=== PATIENT | female | born 1970 | race Caucasian/White ===

== ENCOUNTER 2024-03-02 10:02 | Outpatient (OUT) | payer OTHER, SELFPAY ==
--- NOTE | 2024-03-02 | ECG_ITS ---
The [facility] Test Date: 2024-03-02 Pat Name: RAYSHAWN WILLIAMSON Department: Room: - Gender: Female [employer] Consult[employer]: : 1970 Requested By: CYNTHIA QUINTANILLA Order Number: [id number] Reading MD: ZINA MORALES Measurements Intervals [place] Rate: 80 P: 73 TX: 159 QRS: 84 QRSD: 83 T: 81 QT: 370 QTc: 429 Interpretive Statements SINUS RHYTHM POSSIBLE RIGHT VENTRICULAR CONDUCTION DELAY [RSR (QR) IN V1/V2] No previous ECG available for comparison Electronically Signed On 03-02-2024 18:20:25 EDT by ZINA MORALES
--- NOTE | 2024-03-02 10:15 | XR_ITS ---
The [address] [address] Patient Name: RAYSHAWN WILLIAMSON MRN: [id number] date: 1970 Sex: F Assigned Patient Location: [facility] Current Patient Location: [facility] Accession/Order Number: [id number] Exam Date: 03/02/2024 10:26 Report Date: 03/02/2024 15:30 At the request of: CYNTHIA QUINTANILLA Procedure: XR chest 2V EXAM: XR chest 2V HISTORY: Left Sided Chest Pain, Bronchitis COMPARISON: 08/29/2017 TECHNIQUE: Upright PA and lateral chest x-ray FINDINGS: The heart is not enlarged and the vasculature is not distended. No acute infiltrate, effusion or pneumothorax is identified. Surgical clips project over the left apex, and hardware is associated with the cervical spine. The osseous structures are grossly intact. XR/XR chest 2V IMPRESSION: No acute infiltrate or evidence of cardiac decompensation. The overall appearance of the chest has not changed significantly. Electronically authenticated by: KINA MESA Date: 03/02/2024 15:30
== END 2024-03-02 10:03 | disposition home or self-care (01) ==
LOC: RAD 10:08
PROVIDERS: PCP Family Medicine; Visit Provider Family Medicine
DX: R07.9 Chest pain, unspecified (principal); J40 Bronchitis, not specified as acute or chronic
CPT/HCPCS: 71046; 93005

== ENCOUNTER 2025-02-12 14:24 | Outpatient (OUT) | payer OTHER, SELFPAY ==
--- NOTE | 2025-02-12 14:43 | XR_ITS ---
The [address] [address] Patient Name: RAYSHAWN WILLIAMSON MRN: [id number] date: 1970 Sex: F Assigned Patient Location: LAB Current Patient Location: LAB Accession/Order Number: [id number] Exam Date: 02/12/2025 15:12 Report Date: 02/12/2025 15:12 At the request of: CYNTHIA QUINTANILLA MD Procedure: XR chest 2V XR chest 2V 02/12/2025 2:57 PM SIGNS AND SYMPTOMS: ^chronic cough PROTOCOL: Frontal and lateral radiograph of the chest COMPARISON: 03/02/2024 FINDINGS: The trachea is midline. The heart and mediastinal structures are within normal limits. The lung parenchyma is clear. The bony thorax is intact. There is anterior fusion of lower cervical spine. Surgical clips are noted along the left upper chest wall. XR/XR chest 2V IMPRESSION: No acute cardiopulmonary pathology. Impression dictated by: Rich Falcon M.D. 02/12/2025 3:12 PM Dictation Location: [facility] Electronically authenticated by: [id number] Y Date: 02/12/2025 15:12
--- NOTE | 2025-02-12 14:43 | XR_ITS ---
The [address] [address] Patient Name: RAYSHAWN WILLIAMSON MRN: [id number] date: 1970 Sex: F Assigned Patient Location: LAB Current Patient Location: LAB Accession/Order Number: [id number] Exam Date: 02/12/2025 15:10 Report Date: 02/12/2025 15:12 At the request of: CYNTHIA QUINTANILLA MD Procedure: XR sinus min 3V XR sinus min 3V 02/12/2025 2:57 PM SIGNS AND SYMPTOMS: ^chronic cough, congestion PROTOCOL: Frontal and lateral radiographs of the paranasal sinuses COMPARISON: None FINDINGS: The left maxillary sinus is underpneumatized presumably opacified. The right maxillary sinus, visualized frontal sinuses, and visualized sphenoid sinuses, and visualized ethmoid air cells appear to be well aerated. There is no fracture. XR/XR sinus min 3V IMPRESSION: The left maxillary sinus is underpneumatized presumably opacified. The paranasal sinuses appear to be otherwise well aerated. Impression dictated by: Rich Falcon M.D. 02/12/2025 3:12 PM Dictation Location: [place] [address] Electronically authenticated by: [id number] Y Date: 02/12/2025 15:12
[2025-02-12 14:53] LABS: Basophils Percent Auto 0.5 % (0.2-2.0); Eosinophils Absolute Auto 0.1 10^3/uL (0.0-0.7); Eosinophils Percent Auto 0.9 % (0.9-7.0); Hematocrit 40.1 % (36.0-48.0); Hemoglobin 12.8 g/dL (12.0-16.0); Immature Granulocytes Abs Auto 0.02 10^3/uL (0.00-0.03); Immature Granulocytes Pct Auto 0.2 % (0.0-0.5); Lymphocytes Absolute Auto 1.1 10^3/uL (1.2-3.8); Lymphocytes Percent Auto 12.5 % (20.5-60.0); Mean Corpuscular HGB Conc 31.9 g/dL (29.9-35.2); Mean Corpuscular Hemoglobin 30.3 pg (26.7-34.0); Mean Corpuscular Volume 94.8 fL (81.0-99.0); Mean Platelet Volume 9.7 fL (9.5-13.5); Monocytes Absolute Auto 0.4 10^3/uL (0.3-0.8); Monocytes Percent Auto 4.4 % (1.7-12.0); Neutrophils Absolute Auto 7.1 10^3/uL (1.4-6.5); Neutrophils Percent Auto 81.5 % (43.0-75.0); Platelet Count 276 10^3/uL (150-450); Red Blood Count 4.23 10^6/uL (4.20-5.40); Red Cell Distribution Width 12.4 % (11.0-15.0); White Blood Count 8.7 10^3/uL (4.0-11.0)
[2025-02-12 15:40] LABS: BUN Creatinine Ratio 23.4; Carbon Dioxide 29.2 mmol/L (21.0-32.0); Chloride 106 mmol/L (98-107); Estimated GFR (African America >60 (>=60 mL/min/1.73m^2); Estimated GFR (Non-African Ame >60 (>=60 mL/min/1.73m^2); Glucose 96 mg/dL (74-106); Potassium 4.2 mmol/L (3.5-5.1); Sodium 145 mmol/L (136-145)
== END 2025-02-12 14:25 | disposition home or self-care (01) ==
LOC: LAB 14:25
PROVIDERS: PCP Family Medicine; Visit Provider Family Medicine
DX: R05.3 Chronic cough (principal); R53.83 Other fatigue
CPT/HCPCS: 36415; 70220; 71046; 80048; 82728; 84443; 85025

== ENCOUNTER 2025-02-20 09:15 | Outpatient (OUT) | payer OTHER, SELFPAY ==
--- NOTE | 2025-02-20 09:42 | P.CN_ITS ---
Consult Note: HPI Data of Consult Patient: new to practice Requesting Physician: Yolanda Stephens NP Primary Care Provider: Kareen Castellanos MD Consult Narrative Reason for consult: neck pain Narrative: Chayito Subramanian a pleasant 54 year old female presents for evaluation of neck pain, hx of C5-6 fusion [place] [address] Chung at [facility]. Has noted neck pain >15 years. chronically on tramadol, motrin, lorzapem, celebrex with mild relief. She is working with her PCP to wean off of tramadol. No recent PT, xray imaging of cervical spine and thoracic spine consistent with degenerative changes. No recent advanced imaging. Pain today 4/10 dull burning in neck and bialteral shoulders, reports frequent headaches. Pain increasing with pushing, pulling, standing, walking, activity, and sleep. Pain mildly improved with heat/ice, and sitting. denies numbness tingling weakness to BUE. cc:: CC: Yolanda Stephens NP Review of Systems ROS Status of ROS 10 or more systems reviewed and unremark able except as noted in history and below Exam Constitutional Documenting provider has reviewed patient's vital signs: yes Common normals: no apparent distress, oriented x3, healthy appearing, alert and well nourished General appearance: cooperative HENVT Common normals: normocephalic, hearing grossly normal bilaterally and moist oral mucous membranes Head and scalp: normocephalic Eye Common normals: PERRL Pupil: PERRL Neck & C-Spine Common normals: full ROM General: normal visual inspection Cervical spine: cervical ROM abnormal, pain with cervical ROM, cervical spine tenderness, paracervical muscle tenderness left>right and trapezius muscle tenderness bilateral Other: negative sprulings sensation intact BLE strength 5/5 in BUE Chest Common normals: inspection of chest normal Respiratory Common normals: normal respiratory effort, no retractions and no use of accessory muscles Neuro Common normals: oriented x3 Sensorium/orientation: alert Psych Common normals: mental status grossly normal, thought process normal, cooperative, affect normal, speech normal and activity/motor behavior normal Speech: normal speech Thought process: normal thought process Results Additional Findings Additional findings: If on a controlled substance or opioids, I have checked an OARRS report on this patient and there are no aberrancies noted in the prescribing history.??If on a controlled substance or opioid a drug screen was completed and reviewed within the last year, and if there has not been a drug screen completed we ordered one today to monitor higher risk, state monitored pain medication use. As part of providing excellent, safe, comprehensive care, the following was completed at our patient's visit: 1. A medication reconciliation and review to ensure accurate knowledge of current/active medications, including asking our patients to inform us about any qlkh-xaw-eyavrof medications or herbal remedies/nutritional supplements/alternative remedies. 2. A review to specifically ensure our patients have had annual screening for screening for depression, screening for tobacco use, and screening for unhealthy alcohol use. For concerning screenings had a discussion with the patient, provided patient education, and recommended follow-up with primary care provider when appropriate. If patient noted with a risk of falling, they received education on strength, gait, and balance training to prevent future risk of f alling. Portions of this note may have been carried over from the previous visit and updated as appropriate. Please note this office utilizes paper charting in addition to the electronic medical record. A list of current medications, vitals, and PMH is available there as the clinical staff outside of myself do not have access to [employer] charting during the clinic day operations. As part of providing quality comprehensive care the current medications, vitals, and PMH were reviewed in the paper chart. Assessment and Plan Assessment and Plan (1) Failed neck syndrome: (2) Cervical spondylosis: (3) Myofascial pain: Plan 54 year old female with chronic neck pain post C5-6 fusion, notable facet mediated and myofascial pain on exam. recommend pt trial PT for neck and myofascial pain. start tizanidine 4mg 1/2-1 tab BID PRN pain/headaches/spasms. risks vs benefits reviewed. [employer] CLERK reviewed and signed, NNCP due to chronic benzodiazepine use as discussed. can continue medications through PCP. f/u 6-8 weeks to evaluate response to PT and medications.
== END 2025-02-20 09:16 | disposition home or self-care (01) ==
PROVIDERS: PCP Family Medicine; Visit Provider Nurse Practitioner
DX: M96.1 Postlaminectomy syndrome, not elsewhere classified (principal); M47.812 Spondylosis without myelopathy or radiculopathy, cervical region; M79.18 Myalgia, other site
CPT/HCPCS: G0463

== ENCOUNTER 2025-02-25 13:49 | Outpatient (RCR) | payer OTHER, SELFPAY | END 2025-05-02 06:59 | disposition home or self-care (01) | LOC: PT 13:49 | PROVIDERS: PCP Family Medicine; Visit Provider Nurse Practitioner | DX: M79.18 Myalgia, other site (principal); M47.812 Spondylosis without myelopathy or radiculopathy, cervical region | CPT/HCPCS: 97110; 97112; 97140; 97162 ==

== ENCOUNTER 2025-04-03 09:22 | Outpatient (OUT) | payer OTHER, SELFPAY ==
--- NOTE | 2025-04-03 09:59 | PM.CN ---
Consult Note: HPI Data of Consult Patient: new to practice Requesting Physician: Yolanda Stephens NP Primary Care Provider: Kareen Castellanos MD Consult Narrative Reason for consult: neck pain Narrative: Chayito Subramanian a pleasant 54 year old female presents for evaluation of neck pain, hx of C5-6 fusion in [address] Chung at [facility]. Has noted neck pain >15 years. chronically on tramadol, motrin, lorzapem, celebrex with mild relief. She is working with her PCP to wean off of tramadol. xray imaging of cervical spine and thoracic spine consistent with degenerative changes. No recent advanced imaging. Pain today 4/10 dull burning in neck and bilateral shoulders, reports frequent headaches. Pain increasing with pushing, pulling, standing, walking, activity, and sleep. Pain mildly improved with heat/ice, and sitting. since last visit pt notes increased left arm numbness tingling and weakness, she did complete 6 weeks of PT with increased pain. cc:: CC: Yolanda Stephens NP Review of Systems ROS Status of ROS 10 or more systems reviewed and unremarkable except as noted in history and below Meds Home Medications and Allergies Home Medications �Medication �Instructions �Recorded �Confirmed �Type celecoxib 200 mg capsule (Celebrex) 200 mg PO DAILY 02/20/25 02/20/25 History lorazepam 0.5 mg tablet 0.5 mg PO TID PRN anxiety 02/20/25 02/20/25 History tizanidine 4 mg capsule 4 mg PO BID PRN muscle spasticity 02/20/25 02/20/25 History tizanidine 4 mg tablet See Rx Instructions .Route 02/20/25 Rx .COMPLEX PRN muscle spasticity #60 tabs tizanidine 4 mg tablet See Rx Instructions .Route 02/20/25 Rx .COMPLEX PRN muscle spasticity #60 tabs tramadol 50 mg tablet 50 mg PO TID PRN pain 02/20/25 02/20/25 History Allergies Allergy/AdvReac Type Severity Reaction Status Date / Time Penicillins Allergy Mild Hives Verified 02/20/25 10:06 Exam Constitutional Documenting provider has reviewed patient's vital signs: yes Common normals: no apparent distress, oriented x3, healthy appearing, alert and well nourished General appearance: cooperative HENMT Common normals: normocephalic, hearing grossly normal bilaterally and moist oral mucous membranes Head and scalp: normocephalic Eye Common normals: PERRL Pupil: PERRL Neck & C-Spine Common normals: full ROM General: normal visual inspection Cervical spine: cervical ROM abnormal, pain with cervical ROM, cervical spine tenderness, paracervical muscle tenderness left>right and trapezius muscle tenderness bilateral Other: positive spurlings strength 4/5 in RUE and 5/5 in LUE sensation intact BUE Chest Common normals: inspection of chest normal Respiratory Common normals: normal respiratory effort, no retractions and no use of accessory muscles Neuro Common normals: oriented x3 Sensorium/orientation: alert Psych Common normals: mental status grossly normal, thought process normal, cooperative, affect normal, speech normal and activity/motor behavior normal Speech: normal speech Thought process: normal thought process Results Additional Findings Additional findings: If on a controlled substance or opioids, I have checked an OARRS report on this patient and there are no aberrancies noted in the prescribing history.��If on a controlled substance or opioid a drug screen was completed and reviewed within the last year, and if there has not been a drug screen completed we ordered one today to monitor higher risk, state monitored pain medication use. As part of providing excellent, safe, comprehensive care, the following was completed at our patient's visit: 1. A medication reconciliation and review to ensure accurate knowledge of current/active medications, including asking our patients to inform us about any [id number]-evc-sqphjqd medications or herbal remedies/nutritional supplements/alternative remedies. 2. A review to specifically ensure our patients have had annual screening for screening for depression, screening for tobacco use, and screening for unhealthy alcohol use. For concerning screenings had a discussion with the patient, provided patient education, and recommended follow-up with primary care provider when appropriate. If patient noted with a risk of falling, they received education on strength, gait, and balance training to prevent future risk of falling. Portions of this note may have been carried over from the previous visit and updated as appropriate. Please note this office utilizes paper charting in addition to the electronic medical record. A list of current medications, vitals, and PMH is available there as the clinical staff outside of myself do not have access to [employer] charting during the clinic day operations. As part of providing quality comprehensive care the current medications, vitals, and PMH were reviewed in the paper chart. Assessment and Plan Assessment and Plan (1) Cervical radiculopathy: (2) Failed neck syndrome: (3) Cervical spondylosis: (4) Myofascial pain: Plan 54 year old female with chronic neck pain post C5-6 fusion, since last visit completed 6 weeks of PT with increased pain and increase in radicular symptoms. significant progression noted on physical exam. recommend updating cervical MRI without contrast to assess cervical radiculopathy and chronic neck pain in consideration of interventional therapy vs NS consult. start gabapentin 100mg TID, risks vs benefits reviewed. dc tizanidine due to ineffectivness and increased headaches/dizziness. continue celebrex, tramadol, lorazepam through PCP. tens unit discussed and ordered per pt request, advised to utilize 10-15 mins QID PRN pain/spasms in neck and upper back. f/u to review MRI
== END 2025-04-03 09:23 | disposition home or self-care (01) ==
PROVIDERS: PCP Family Medicine; Visit Provider Nurse Practitioner
DX: M54.12 Radiculopathy, cervical region (principal); M96.1 Postlaminectomy syndrome, not elsewhere classified; M47.812 Spondylosis without myelopathy or radiculopathy, cervical region; M79.18 Myalgia, other site
CPT/HCPCS: G0463

== ENCOUNTER 2025-04-19 13:39 | Outpatient (OUT) | payer OTHER, SELFPAY ==
--- NOTE | 2025-04-19 | MR_ITS ---
The [address] [address] Patient Name: RAYSHAWN WILLIAMSON MRN: [id number] date: 1970 Sex: F Assigned Patient Location: MRI Current Patient Location: MRI Accession/Order Number: [id number] Exam Date: 04/19/2025 15:52 Report Date: 04/19/2025 15:56 At the request of: PAOLO PATEL NP Procedure: MR cervical spine wo con MR cervical spine wo con 04/19/2025 2:27 PM SIGNS AND SYMPTOMS: Chronic neck pain with pain in the left arm and left hand with headaches PROTOCOL: Multiplanar multisequence MR images of the cervical spine without IV contrast COMPARISON: None. FINDINGS: The bones of the cervical spine are in anatomic alignment. There is preservation of vertebral body heights. Anterior and intervertebral fusion is noted at C5-C6. The marrow signal is within normal limits. The cord is normal in signal. No epidural or paraspinous fluid collection is appreciated. The visualized paraspinous soft tissues are within normal limits. The prevertebral soft tissues are within normal limits. At C2-C3: There is a normal disc, central canal, and neural foramen. At C3-C4: There is a normal disc, central canal, and neural foramen. At C4-C5: There is uncovertebral joint spurring with mild bilateral neural foraminal narrowing. No spinal canal narrowing. At C5-C6: There is anterior and intervertebral fusion. No significant stenosis. At C6-C7: There is a central disc protrusion with uncovertebral joint spurring and facet hypertrophy. There is mild bilateral neural foraminal narrowing with moderate spinal canal stenosis. At C7-T1: There is a normal disc, central canal, and neural foramen. MR/MR cervical spine wo con IMPRESSION: At C6-C7: There is a central disc protrusion with uncovertebral joint spurring and facet hypertrophy. There is mild bilateral neural foraminal narrowing with moderate spinal canal stenosis. At C4-C5: There is uncovertebral joint spurring with mild bilateral neural foraminal narrowing. No spinal canal narrowing. At C5-C6: There is anterior and intervertebral fusion. No significant stenosis. No cord compression or cord signal abnormality. Impression dictated by: Rich Falcon M.D. 04/19/2025 3:56 PM Dictation Location: [place] [address] Electronically authenticated by: [id number] Y Date: 04/19/2025 15:56
== END 2025-04-19 13:40 | disposition home or self-care (01) ==
LOC: MRI 13:39
PROVIDERS: PCP Family Medicine; Visit Provider Nurse Practitioner
DX: M54.12 Radiculopathy, cervical region (principal); M50.223 Other cervical disc displacement at C6-C7 level
CPT/HCPCS: 72141

== ENCOUNTER 2025-05-02 11:34 | Outpatient (OUT) | payer OTHER, SELFPAY ==
--- OUTSIDE RECORDS SUMMARY | 2025-05-02 11:43 | XMS_ITS | CCD ---
Author Organization [facility] Care Team Providers Care Database Designer Name Role Phone KAREEN QUINTANILLA Primary Care Physician [phone] DR KAREEN QUINTANILLA Admitting Unavailable SOCORRO, DR KAREEN Gregg Primary Care Unavailable SOCORRO, DR KAREEN Gregg Attending Unavailable JHONATAN, DR YOBANI De Souza Consulting Unavailable SOCORRO, DR KAREEN Gregg Consulting Unavailable Kareen Quintanilla Unavailable Robbie, Imad Unavailable MD Kareen Quintanilla Primary Care Provider MD Sweta Avalos Attending Provider BECCA XIONG Attending Unavailable BECCA XIONG Admitting Unavailable MD Kareen Quintanilla Primary Care Provider MD Becca Xiong II Attending Provider [phone] Asaad, Imad Admitting Unavailable Sweta Avalos Attending Unavailable Kareen Quintanilla Primary Care Unavailable Becca Xiong II Admitting UnavailBecca Corley II Attending UnavailKareen Ramirez Primary Care Unavailable Allergies Allergy Classification Reported Allergen(s) Allergy Type Date of Onset Reaction(s) Facility metaxalone (3 sources) metaxalone; Translations: [metaxalone] Drug Allergy 01-19-20 Unknown Reaction [facility] NSAIDs (3 sources) Ibuprofen; Translations: [ibuprofen] Drug Allergy 01-19-20 Unknown Reaction [facility] Penicillins (antibiotic) (4 sources) Penicillin; Translations: [penicillin G] Drug Allergy 07-15-20 Unknown Reaction [facility] Quinolones (antibiotic) (3 sources) levoFLOXacin; Translations: [levofloxacin] Drug Allergy 01-19-20 Unknown Reaction [facility] (5 sources) Penicillins; Translations: [penicillins] Drug allergy 12-25-19 16 [facility] (20 sources) Penicillin G Drug Allergy 12-30-19 24 Unknown, Unknown Reaction [facility] (15 sources) Ibuprofen Drug Allergy 12-30-19 24 Unknown, Unknown Reaction [facility] (7 sources) levoFLOXacin Drug Allergy Unknown [facility] [place] Other (7 sources) Skelaxin *MUSCULOSKELETAL THERAPY AGENTS* Propensity to adverse reactions Unknown [facility] [place] Other (7 sources) Penicillin G Benzathine & Proc Drug allergy Unknown [facility] [place] Other (8 sources) levoFLOXacin Drug Allergy 12-30-19 24 Unknown Reaction [facility] (8 sources) metaxalone Drug Allergy 12-30-19 24 Unknown Reaction [facility] (1 source) Triamcinolone Drug Allergy 02-13-20 25 Vomiting [facility] Medications Current Medications Medication Drug Class(es) Dates Sig (Normalized) Sig (Original) Acetaminophen / Codeine (2 sources) Opioid Agonist Start: 04-20-2013 take 1 tablet by mouth every six hours as needed for pain Tylenol with Codeine #4 See Instructions, as needed for pain, Refill(s) 0, 1 tab(s) Oral q6hr Start Date: 04/20/13 Status: Ordered escitalopram 10 mg oral tablet (3 sources) Serotonin Reuptake Inhibitor Start: 08-30-2024 take 1 tablet by mouth once daily Escitalopram Oxalate (Lexapro) 10 mg tablet Active 10 MG PO Daily August 30, 2024 1:00am metoprolol tartrate 50 mg oral tablet (4 sources) beta-Adrenergic Devendra Start: 05-15-2014 take 1 tablet by mouth once daily Metoprolol succinate 50 mg ER Tablet 50 mg, Oral, Daily, Refills(s) 0 Start Date: 05/15/14 Status: Ordered Start: 05-15-2014 take 1 tablet by lona th once daily Metoprolol succinate 25 mg ER Tablet 25 mg, Oral, Daily, Refills(s) 0 Start Date: 05/15/14 Status: Ordered Multivitamins and Minerals (2 sources) Start: 05-15-2014 Multivitamins and Minerals Refill(s) 0 Start Date: 05/15/14 Status: Ordered polyethylene glycol 3350 279755 mg / potassium chloride 2970 mg / sodium bicarbonate 6740 mg / sodium chloride 5860 mg / sodium sulfate 25999 mg powder for oral solution (5 sources) Osmotic Laxative Start: 06-06-2023 take 236 g by mouth once daily Golytely 236 GM as directed Orally once daily for 1 days May, Active Completed/Discontinued Medications Medication Drug Class(es) Dates Sig (Normalized) Sig (Original) azithromycin 250 mg oral tablet (15 sources) Macrolide Antimicrobial Start: 03-02-2024 End: 06-28-2024 Azithromycin 250 mg tablet Discontinued 0 PO .COMPLEX March 02, 2024 12:00am June 28, 2024 10:40am For 250 mg dose pack: take 500 mg today (day 1), then 250 mg for 4 days (days 2-5) PO Start: 03-02-2024 End: 06-28-2024 Azithromycin Discontinued 0 PO .COMPLEX March 02, 2024 12:00am June 28, 2024 10:40am For 250 mg dose pack: take 500 mg today (day 1), then 250 mg for 4 days (days 2-5) PO Start: 03-02-2024 Azithromycin A ctive 0 PO .COMPLEX March 02, 2024 12:00am For 250 mg dose pack: take 500 mg today (day 1), then 250 mg for 4 days (days 2-5) PO Start: 11-17-2022 Azithromycin 2 50 MG as directed Orally 2 tabs po today, then 1 tab daily x 4 more days for 5 Nov, Active celecoxib 200 mg oral capsule (20 sources) Nonsteroidal Anti-inflammatory Drug Start: 07-15-2023 End: 10-21-2024 take 1 capsule by mouth once daily Celecoxib (Celebrex) 200 mg capsule Discontinued 200 MG PO Daily November 29, 2023 10:38am April 02, 2024 10:59am doxycycline hyclate 100 mg oral tablet (3 sources) Tetracycline-class Drug Start: 11-12-2024 End: 01-18-2025 take 1 tablet by mouth twice daily Doxycycline Hyclate 100 mg tablet Discontinued 100 MG PO Twice daily November 12, 2024 1:00am January 18, 2025 9:07am LORazepam 0.5 mg oral tablet (20 sources) Benzodiazepine Start: 07-15-2023 End: 02-01-2025 take 1 tablet by mouth three times daily as needed for anxiety Lorazepam 0.5 mg tablet Discontinued 0.5 MG PO Three times daily as needed for Anxiety 90 November 29, 2023 10:39am December 28, 2023 1:21pm Start: 07-01-2023 take 1 tablet by lona three times daily as needed LORazepam 0.5 MG 1 tablet Orally three times daily, as needed Jun, Active Start: 06-03-2023 take 1 tablet by lona three times daily as needed LORazepam 0.5 MG 1 tablet Orally three times daily, as needed May, Active Start: 05-05-2023 take 1 tablet by lona three times daily as needed LORazepam 0.5 MG 1 tablet Orally three times daily, as needed Apr, Active Start: 03-10-2023 take 1 tablet by lona three times daily as needed LORazepam 0.5 MG 1 tablet Orally three times daily, as needed Feb, Active Start: 12-07-2022 take 1 tablet by lona three times daily as needed LORazepam 0.5 MG 1 tablet Orally three times daily, as needed Nov, Active Start: 11-11-2022 take 1 tablet by lona three times daily as needed LORazepam 0.5 MG 1 tablet Orally three times daily, as needed Oct, Active Start: 04-20-2013 take 0.25 mg by mouth once VAMSI azepam 0.5 mg Tab 0.25 mg = 0.5 tab(s), Oral, Once, Refills(s) 0 Start Date: 04/20/13 Status: Ordered predniSONE 20 mg oral tablet (9 sources) Start: 01-13-2024 End: 02-17-2024 take 1 tablet by mouth twice daily Prednisone 20 mg tablet Discontinued 20 MG PO Twice daily January 13, 2024 12:00am February 17, 2024 8:42am traMADol hydrochloride 50 mg oral tablet (20 sources) Opioid Agonist Start: 01-03-2024 End: 02-01-2025 take 1 tablet by mouth three times daily as needed for pain Tramadol 50 mg tablet Discontinued 50 MG PO Three times daily as needed for pain June 28, 2024 1:34pm July 29, 2024 8:15am Start: 12-28-2023 End: 01-03-2024 take 2 tablets by mouth every eight hours as needed Tramadol Discontinued 100 MG PO Three times daily 42 December 28, 2023 1:20pm January 03, 2024 12:44pm 2 tabs q8h prn Start: 11-29-2023 End: 01-03-2024 take 2 tablets by mouth every eight hours as needed for pain Tramadol 50 mg tablet Discontinued 100 MG PO Three times daily as needed for pain 42 December 28, 2023 1:20pm January 03, 2024 12:44pm 2 tabs q8h prn Start: 10-28-2023 traMADol HCl 5 0 mg TAKE 2 TABLETS BY MOUTH EVERY 8 HOURS NEEDED FOR 30 DAYS for 30 days Oct, Active Start: 09-28-2023 traMADol HCl 5 0 mg TAKE 2 TABLETS BY MOUTH EVERY 8 HOURS NEEDED FOR 30 DAYS for 30 days Sep, Active Start: 08-01-2023 traMADol HCl 5 0 mg TAKE 2 TABLETS BY MOUTH EVERY 8 HOURS NEEDED FOR 30 DAYS for 30 days Jul, Active Start: 07-15-2023 End: 11-29-2023 take 1 tablet by mouth once daily at bedtime Tramadol 50 mg tablet Discontinued 50 MG PO Daily at bedtime July 15, 2023 12:00am November 29, 2023 10:40am Start: 07-01-2023 traMADol HCl 5 0 mg TAKE 2 TABLETS BY MOUTH EVERY 8 HOURS NEEDED FOR 30 DAYS for 30 days Jun, Active Start: 06-03-2023 traMADol HCl 5 0 mg TAKE 2 TABLETS BY MOUTH EVERY 8 HOURS NEEDED FOR 30 DAYS for 30 days May, Active Start: 05-05-2023 traMADol HCl 5 0 mg TAKE 2 TABLETS BY MOUTH EVERY 8 HOURS NEEDED FOR 30 DAYS for 30 days Apr, Active Start: 03-10-2023 traMADol HCl 5 0 mg TAKE 2 TABLETS BY MOUTH EVERY 8 HOURS NEEDED FOR 30 DAYS for 30 Feb, Active Start: 12-07-2022 take 2 tablets by mo uth every eight hours as needed traMADol HCl 50 mg TAKE 2 TABLETS BY MOUTH EVERY 8 HOURS NEEDED for 30 days Nov, Active Start: 11-12-2022 take 2 tablets by mo uth every eight hours as needed traMADol HCl 50 mg TAKE 2 TABLETS BY MOUTH EVERY 8 HOURS NEEDED for 30 days Oct, Active Problems Active Problems Problem Classification Problem Date Documented Date Episodic/Chronic Anxiety disorders (20 sources) Anxiety; Translations: [Anxiety disorder] Onset: 07-24-2015 05-15-2014 Chronic Chronic obstructive pulmonary disease and bronchiectasis (10 sources) Bronchitis; Translations: [Bronchitis, not specified as acute or chronic] 03-02-2024 Episodic Genitourinary symptoms and ill-defined conditions (11 sources) Genitourinary symptoms; Translations: [Unspecified symptoms and signs involving the genitourinary system] 08-30-2024 Episodic Immunizations and screening for infectious disease (7 sources) Vaccination given; Translations: [Encounter for immunization] Episodic Joint disorders and dislocations; trauma-related (20 sources) Instability of joint of right knee; Translations: [Chronic instability of knee, right knee] 01-19-2024 Chronic Malaise and fatigue (5 sources) Fatigue; Translations: [Other fatigue] 09-04-2024 Episodic Nonspecific chest pain (8 sources) Left sided chest pain; Translations: [Chest pain, unspecified] 03-02-2024 Episodic Osteoarthritis (12 sources) Osteoarthritis of right knee joint; Translations: [Unilateral primary osteoarthritis, right knee] 01-19-2024 Chronic Other aftercare (3 sources) Patient encounter status; Translations: [Other termite helper (current) drug therapy] 08-30-2024 Episodic Other aftercare (1 source) Other senior care (current) drug therapy; Translations: [Long-term (current) use of other medications] 08-30-2024 Episodic Other circulatory disease (7 sources) Elevated blood-pressure reading without diagnosis of hypertension; Translations: [Elevated blood-pressure reading, without diagnosis of hypertension] Episodic Other connective tissue disease (6 sources) Pes anserinus bursitis of right knee; Translations: [Other bursitis of knee, right knee] 02-17-2024 Episodic Other connective tissue disease (2 sources) Other bursitis of knee, right knee; Translations: [Pes anserinus tendinitis or bursitis] 02-17-2024 Episodic Other female genital disorders (7 sources) Dyspareunia; Translations: [Unspecified dyspareunia] Chronic Other lower respiratory disease (1 source) Dyspnea, unspecified Episodic Other lower respiratory disease (1 source) Other abnormalities of breathing Episodic Other lower respiratory disease (2 sources) Chronic cough; Translations: [Chronic cough] 02-12-2025 Episodic Other nervous system disorders (15 sources) Chronic pain; Translations: [Other chronic pain] Chronic Other nervous system disorders (1 source) Other chronic pain Chronic Other non-traumatic joint disorders (7 sources) Arthralgia of the lower leg; Translations: [Pain in left knee] Episodic Other non-traumatic joint disorders (20 sources) Pain in right knee; Translations: [Chronic pain of right knee] Onset: 02-06-2024 12-31-2023 Episodic Other nutritional; endocrine; and metabolic disorders (14 sources) Obese class I; Translations: [Body mass index (BMI) 31.0-31.9, adult] Chronic Other nutritional; endocrine; and metabolic disorders (7 sources) Body mass index 30+ - obesity; Translations: [Body mass index (BMI) 30.0-30.9, adult] Chronic Other nutritional; endocrine; and metabolic disorders (20 sources) Body mass index 25-29 - overweight; Translations: [Body mass index (BMI) 29.0-29.9, adult] Episodic Other nutritional; endocrine; and metabolic disorders (7 sources) Abnormal weight gain; Translations: [Abnormal weight gain] Episodic Other screening for suspected conditions (not mental disorders or infectious disease) (2 sources) Encounter for screening mammogram for malignant neoplasm of breast; Translations: [Encounter for screening for malignant neoplasm of colon] Episodic Other skin disorders (9 sources) Skin lesion; Translations: [Disorder of the skin and subcutaneous tissue, unspecified] 12-31-2023 Episodic Other skin disorders (4 sources) Disorder of the skin and subcutaneous tissue, unspecified; Translations: [Unspecified disorder of skin and subcutaneous tissue] 12-30-2023 Episodic Other upper respiratory disease (1 source) Allergic rhinitis due to pollen; Translations: [Allergic rhinitis due to pollen] 01-18-2025 Chronic Other upper respiratory disease (1 source) Allergic rhinitis due to pollen; Translations: [Allergic rhinitis due to pollen] 01-18-2025 Chronic Other upper respiratory infections (7 sources) Chronic sinusitis; Translations: [Chronic sinusitis, unspecified] Chronic Residual codes; unclassified (2 sources) Tobacco user 04-20-2013 Episodic Comment on above: Added secondary to s ocial history documentation. Residual codes; unclassified (2 sources) Localized edema; Translations: [Localized edema] Episodic Residual codes; unclassified (7 sources) Insomnia; Translations: [Insomnia, unspecified] Episodic Residual codes; unclassified (5 sources) Localized edema; Translations: [Localized edema] Episodic Residual codes; unclassified (3 sources) Memory impairment; Translations: [Other amnesia] 09-04-2024 Episodic Residual codes; unclassified (1 source) Other amnesia; Translations: [Memory loss] 08-30-2024 Episodic Spondylosis; intervertebral disc disorders; other back problems (1 source) Other cervical disc degeneration, unspecified cervical region; Translations: [OTH CERV DISC DEGENERATION UNS CERV] Onset: 11-17-2022 Chronic Spondylosis; intervertebral disc disorders; other back problems (20 sources) Backache; Translations: [Pain in thoracic spine] Onset: 11-12-2022 05-15-2014 Episodic Substance-related disorders (2 sources) Smoker 05-15-2014 Chronic Comment on above: Added secondary to d ocumentation in Social History. Unclassified (1 source) Encounter for screening for malignant neoplasm of colon; Translations: [Encounter for screening for malignant neoplasm of colon] Onset: 07-15-2023 Urinary tract infections (7 sources) Urinary tract infectious disease; Translations: [Urinary tract infection, site not specified] Episodic Viral infection (7 sources) Herpes zoster without complication; Translations: [Zoster without complications] Episodic Past or Other Problems Problem Classification Problem Date Documented Da te Episodic/Chronic Acute bronchitis (7 sources) Acute bronchitis; Translations: [Acute bronchitis, unspecified] Onset: 08-29-2017 Episodic Allergic reactions (7 sources) Inflammatory dermatosis; Translations: [Dermatitis, unspecified] Onset: 04-29-2017 Episodic Cardiac dysrhythmias (7 sources) Tachycardia; Translations: [Tachycardia, unspecified] Onset: 03-25-2017 Episodic Other skin disorders (7 sources) Alopecia; Translations: [Nonscarring hair loss, unspecified] Onset: 12-28-2017 Episodic Other skin disorders (7 sources) Acne; Translations: [Acne, unspecified] Onset: 12-28-2017 Episodic Other upper respiratory infections (15 sources) Acute maxillary sinusitis, unspecified; Translations: [Acute pharyngitis] Onset: 08-13-2015 Episodic Unclassified (1 source) Exposure to 2019 novel coronavirus; Translations: [Contact with and (suspected) exposure to COVID19] Unclassified (2 sources) Mitral valve structure (body structure) 04-20-2013 Results Test Name Value Interpretation Reference Range Facil ity MR knee RT wo conon 02-07-20 MR knee RT wo con [facility] [place] [address] [place] [address] MRI Report Signed Patient: Chayito Subramanian MR#: [id number] : 1970 Acct:[id number] Age/Sex: 53 / F ADM Date: 02/06/24 Loc: MR Room: Type: [facility] Attending Dr: Becca Xiong II, MD Copies to: Becca Xiong MD Ordering Provider: Becca Xiong MD Date of Service: 02/06/24 MR/MR knee RT wo con: M25.56 MR knee RT wo con 02/06/2024 8:12 PM SIGNS AND SYMPTOMS: Right knee pain and instability/buckling for one year. PROTOCOL: Multiplanar multisequence MR images of the right knee were obtained without IV contrast COMPARISON: None. FINDINGS: Fluid: There is a small joint effusion. There is no Butts's cyst. Medial compartment: Medial meniscus: Intact. Medial collateral ligament: Intact. Medial femoral condyle cartilage: There is partial thickness chondromalacia along the articular surface of the medial femoral condyle. Medial tibial plateau cartilage: There is partial thickness chondromalacia along the medial tibial plateau. Lateral compartment: Lateral meniscus: Intact. Lateral collateral ligament: Intact. Lateral femoral condyle cartilage: Intact. Lateral tibial plateau cartilage: Intact. Posterolateral corner: Popliteus tendon: Intact. Popliteofibular ligament: Intact. Proximal tibiofibular joint: Preserved. Anterior compartment: Alignment: Normal. Quadriceps tendon: Intact. There is a small amount of edema within the quadriceps fat pad. Patellar tendon: Intact. Retinaculum: Medial intact. Lateral intact. Patellar cartilage: There is mild partial thickness chondromalacia along the apex and lateral articular facet. Trochlea: There is mild partial thickness chondromalacia centrally. . Plica: None. Hoffa fat pad: Normal. Intercondylar compartment: Anterior cruciate ligament: Intact. Posterior cruciate ligament: Intact. Bones (other than subarticular marrow): Normal. Muscles: Normal. Vessels: Normal. Nerves: Normal. MR/MR knee RT wo con IMPRESSION: Mild tricompartmental partial thickness chondromalacia which is greatest along the medial weightbearing joint space. There is a small joint effusion without evidence of a Butts's cyst. There is a small amount of edema within the quadriceps fat pad. Correlation with clinical signs of quadriceps fat pad impingement is recommended. The knee is structurally intact. Impression dictated by: Rich Falcon M.D.02/07/2024 11:06 AM Dictation Location: [place] [address] Transcribed By: [facility] 02/07/24 1106 Dictated By: Rich Falcon II, MD 02/07/24 1051 Signed By: 02/07/24 1106 Normal [facility] XR Knee Complete 4+ Views [facility] 01-21-2024 XR Knee Complete 4+ Views Right Exam Date/Time: 01/19/2024 10:30 EDT Reason for Exam: M25.561 Report IMPRESSION: MINIMAL MARGINAL OSTEOPHYTOSIS. OTHERWISE, UNREMARKABLE KNEE RADIOGRAPHS. EXAM: XR Knee Complete 4+ Views Right DATE: 01/19/2024 10:10 AM CLINICAL HISTORY: M25.561. COMPARISON: None available. TECHNIQUE: Standing AP radiographs of both knees, and routine lateral, internal and external oblique radiographs of the right knee were obtained. FINDINGS: Minimal marginal osteophytosis is noted. There is no fracture, sizable joint effusion, significant joint space narrowing, dislocation, worrisome bone destruction, radiodense foreign bodies, or pathologic calcifications identified elsewhere. Ordering Provider: , FINAL REPORT Dictated: 01/21/2024 5:06 pm Harshal Fontenot MD Signed (Electronic Signature): 01/21/2024 5:06 pm Signed by: Harshal Fontenot MD Transcribed by: BRAIN Technologist: EMILY Technical Comments Radiation Dose: Ka,r in mGy = na DAP = na Normal [facility] XR Pelvis 1 or 2 Viewson XR Pelvis 1 or 2 Views Exam Date/Time: 01/19/2024 10:27 EDT Reason for Exam: M25.561 Report IMPRESSION: NO DISPLACED FRACTURE OR ACUTE OSSEOUS PROCESS IDENTIFIED. EXAM: XR Pelvis 1 or 2 Views DATE: 01/19/2024 10:10 AM CLINICAL HISTORY: M25.561. COMPARISON: None available. TECHNIQUE: An AP radiograph of the pelvis was obtained. FINDINGS: Mild enthesopathy is present of the left gluteus medius insertion. There is no displaced fracture, dislocation, pelvic diastases, significant degenerative changes, evidence of avascular necrosis, or other findings of concern identified. Ordering Provider: , FINAL REPORT Dictated: 01/21/2024 5:07 pm Harshal Fontenot MD Signed (Electronic Signature): 01/21/2024 5:07 pm Signed by: Harshal Fontenot MD Transcribed by: BRAIN Technologist: EMILY Technical Comments Radiation Dose: Ka,r in mGy = na DAP = na Normal [facility] Consent for Treatmenton Consent for Treatment [id number] 0TIFF Normal [facility] Physician Orderon 01-19-2024 Physician Order [id number] 0TIFF Normal [facility] XR CSPINE 2_3 VIEWSon 2022 XR CSPINE 2_3 VIEWS EXAMINATION: XR CSPINE 2_3 VIEWS HISTORY: Neck pain , chronic; left shoulder pain COMPARISON: No relevant comparison available. FINDINGS: BONES: Anterior mechanical fusion of C5-6 without evidence of hardware fracture or loosening. Straightening of the normal lordotic curvature; positioning versus muscle spasm. No vertebral body fracture or significant spondylolisthesis. Multilevel mild degenerative facet arthropathy. DISC SPACES: Mild narrowing C2-3 and C4-5. Suspect osseous fusion of C5-6. PARASPINOUS: Negative. No paraspinous abnormality is seen. OTHER: Negative. IMPRESSION: 1. Multilevel mild degenerative disc disease and degenerative facet arthropathy. 2. Prior mechanical fusion of C5-C6 without evidence of hardware failure. Electronically authenticated by: YOBANI ISRAEL Date: 2022-11-12 15:[address] [facility] XR TSPINE 3 VIEWSon 11-12-19 23 XR TSPINE 3 VIEWS EXAMINATION: XR TSPI NE 3 VIEWS HISTORY: Pain in thoracic spine , chronic; left shoulder pain COMPARISON: No relevant comparison available. FINDINGS: BONES: No significant spondylosis, scoliosis, fracture, or visible bony lesion. DISC SPACES: No significant disc height narrowing, subluxation, or endplate abnormality. PARASPINOUS: Negative. No paraspinous abnormality is seen. OTHER: Negative. IMPRESSION: 1. No acute abnormality or significant degenerative changes of the thoracic spine. Electronically authenticated by: YOBANI ISRAEL Date: 2022-11-12 15:[address] [facility] Vital Signs Date Time Vital Sign Value Performing Clinician Facility 02-12-2025 13:47-0400 Body height 160.02 cm [facility] 02-12-2025 13:47-0400 Body mass index (BMI) [Ratio] 23.1 kg/m2 [facility] 02-12-2025 13:47-0400 Body weight 59.19 kg [facility] 02-12-2025 13:47-0400 Diastolic blood pressure 77 mm[Hg] [facility] 02-12-2025 13:47-0400 Heart rate 104 /min [facility] 02-12-2025 13:47-0400 Systolic blood pressure 114 mm[Hg] [facility] 01-18-2025 08:57-0400 Body height 160.02 cm [facility] 01-18-2025 08:57-0400 Body mass index (BMI) [Ratio] 23.2 kg/m2 [facility] 01-18-2025 08:57-0400 Body weight 59.42 kg [facility] 01-18-2025 08:57-0400 Diastolic blood pressure 87 mm[Hg] [facility] 01-18-2025 08:57-0400 Heart rate 90 /min [facility] 01-18-2025 08:57-0400 Systolic blood pressure 119 mm[Hg] [facility] 11-12-2024 11:11-0500 Body height 160.02 cm [facility] 11-12-2024 11:11-0500 Body mass index (BMI) [Ratio] 22.5 kg/m2 [facility] 11-12-2024 11:11-0500 Body weight 57.71 kg [facility] 11-12-2024 11:11-0500 Diastolic blood pressure 75 mm[Hg] [facility] 11-12-2024 11:11-0500 Heart rate 92 /min [facility] 11-12-2024 11:11-0500 Respiratory rate 12 /min [facility] 11-12-2024 11:11-0500 SaO2% (BldA) [Mass fraction] 97 % [facility] 11-12-2024 11:11-0500 Systolic blood pressure 107 mm[Hg] [facility] 08-30-2024 10:54-0500 Body height 160.02 cm [facility] 08-30-2024 10:54-0500 Body mass index (BMI) [Ratio] 23 kg/m2 [facility] 08-30-2024 10:54-0500 Body weight 58.96 kg [facility] 08-30-2024 10:54-0500 Diastolic blood pressure 89 mm[Hg] [facility] 08-30-2024 10:54-0500 Heart rate 111 /min [facility] 08-30-2024 10:54-0500 Systolic blood pressure 135 mm[Hg] [facility] 06-28-2024 10:41-0400 Body height 160.02 cm [facility] 06-28-2024 10:41-0400 Body mass index (BMI) [Ratio] 23.4 kg/m2 [facility] 06-28-2024 10:41-0400 Body weight 59.98 kg [facility] 06-28-2024 10:41-0400 Diastolic blood pressure 78 mm[Hg] [facility] 06-28-2024 10:41-0400 Heart rate 102 /min [facility] 06-28-2024 10:41-0400 Respiratory rate 14 /min [facility] 06-28-2024 10:41-0400 SaO2% (BldA) [Mass fraction] 99 % [facility] 06-28-2024 10:41-0400 Systolic blood pressure 120 mm[Hg] [facility] 04-03-2024 11:41-0400 Body height 160.02 cm MD Kareen Quintanilla Work Phone: [facility] 04-03-2024 11:41-0400 Body mass index (BMI) [Ratio] 23.2 kg/m2 MD Kareen Quintanilla Work Phone: [facility] 04-03-2024 11:41-0400 Body weight 59.42 kg MD Kareen Quintanilla Work Phone: [facility] 04-03-2024 11:41-0400 Diastolic blood pressure 64 mm[Hg] MD Kareen Quintanilla Work Phone: [facility] 04-03-2024 11:41-0400 Heart rate 74 /min MD Kareen Quintanilla Work Phone: [facility] 04-03-2024 11:41-0400 SaO2% (BldA) [Mass fraction] 98 % MD Kareen Quintanilla Work Phone: [facility] 04-03-2024 11:41-0400 Systolic blood pressure 112 mm[Hg] MD Kareen Quintanilla Work Phone: [facility] 03-02-2024 09:25-0400 Body height 160.02 cm MD Kareen Quintanilla Work Phone: [facility] 03-02-2024 09:25-0400 Body mass index (BMI) [Ratio] 22.8 kg/m2 MD Kareen Quintanilla Work Phone: [facility] 03-02-2024 09:25-0400 Body temperature 98.5 [degF] MD Kareen Quintanilla Work Phone: [facility] 03-02-2024 09:25-0400 Body weight 58.51 kg MD Kareen Quintanilla Work Phone: [facility] 03-02-2024 09:25-0400 Diastolic blood pressure 83 mm[Hg] MD Kareen Quintanilla Work Phone: [facility] 03-02-2024 09:25-0400 Heart rate 94 /min MD Kareen Quintanilla Work Phone: [facility] 03-02-2024 09:25-0400 Systolic blood pressure 116 mm[Hg] MD Kareen Quintanilla Work Phone: [facility] 02-17-2024 08:40-0400 Body height 160.02 cm MD Kareen Quintanilla Work Phone: [facility] 02-17-2024 08:40-0400 Body mass index (BMI) [Ratio] 23 kg/m2 MD Kareen Quintanilla Work Phone: [facility] 02-17-2024 08:40-0400 Body weight 59 kg MD Kareen Quintanilla Work Phone: [facility] 01-19-2024 11:13-0400 Body height 160.02 cm MD Kareen Quintanilla Work Phone: [facility] 01-19-2024 11:13-0400 Body mass index (BMI) [Ratio] 23 kg/m2 MD Kareen Quintanilla Work Phone: [facility] 01-19-2024 11:13-0400 Body weight 58.96 kg MD Kareen Quintanilla Work Phone: [facility] 01-13-2024 09:39-0400 Body height 160.02 cm [facility] 01-13-2024 09:39-0400 Body mass index (BMI) [Ratio] 23.2 kg/m2 [facility] 01-13-2024 09:39-0400 Body weight 59.42 kg [facility] 01-13-2024 09:39-0400 Diastolic blood pressure 73 mm[Hg] [facility] 01-13-2024 09:39-0400 Heart rate 105 /min [facility] 01-13-2024 09:39-0400 Systolic blood pressure 105 mm[Hg] [facility] 12-30-2023 14:50-0400 Body height 160.02 cm [facility] 12-30-2023 14:50-0400 Body mass index (BMI) [Ratio] 23.4 kg/m2 [facility] 12-30-2023 14:50-0400 Body weight 59.98 kg [facility] 12-30-2023 14:50-0400 Diastolic blood pressure 80 mm[Hg] [facility] 12-30-2023 14:50-0400 Heart rate 101 /min [facility] 12-30-2023 14:50-0400 Systolic blood pressure 123 mm[Hg] [facility] 07-15-2023 10:57-0400 Diastolic blood pressure 61 mm[Hg] MD Kareen Quintanilla Work Phone: [facility] 07-15-2023 10:57-0400 Heart rate 82 /min MD Kareen Quintanilla Work Phone: [facility] 07-15-2023 10:57-0400 Respiratory rate 16 /min MD Kareen Quintanilla Work Phone: [facility] 07-15-2023 10:57-0400 SaO2% (BldA) [Mass fraction] 100 % MD Kareen Quintanilla Work Phone: [facility] 07-15-2023 10:57-0400 Systolic blood pressure 97 mm[Hg] MD Kareen Quintanilla Work Phone: [facility] 07-15-2023 09:20-0400 Body height 160.02 cm MD Kareen Quintanilla Work Phone: [facility] 07-15-2023 09:20-0400 Body temperature 98 [degF] MD Kareen Quintanilla Work Phone: [facility] 07-15-2023 09:20-0400 Body weight 55.33 kg MD Kareen Quintanilla Work Phone: [facility] 05-13-2023 09:15-0400 Body height 157.48 cm Kareen Quintanilla Other [employer] Other 05-13-2023 09:15-0400 Body mass index (BMI) [Ratio] 23.23 kg/m2 Kareen Quintanilla Other [employer] Other 05-13-2023 09:15-0400 Body weight 57.61 kg Kareen Quintanilla Other [employer] Other 05-13-2023 09:15-0400 Diastolic blood pressure 84 mm[Hg] Kareen Quintanilla Other [employer] Other 05-13-2023 09:15-0400 Systolic blood pressure 130 mm[Hg] Kareen Quintanilla Other [employer] Other 11-12-2022 11:30-0500 Body height 157.48 cm Kareen Quintanilla Other [employer] Other 11-12-2022 11:30-0500 Body mass index (BMI) [Ratio] 23.41 kg/m2 Kareen Quintanilla Other [employer] Other 11-12-2022 11:30-0500 Body weight 58.06 kg Kareen Quintanilla Other [employer] Other 11-12-2022 11:30-0500 Diastolic blood pressure 88 mm[Hg] Kareen Quintanilla Other [employer] Other 11-12-2022 11:30-0500 SaO2% (BldA) [Mass fraction] 98 % Kareen Quintanilla Other [employer] Other 11-12-2022 11:30-0500 Systolic blood pressure 126 mm[Hg] Kareen Quintanilla Other [employer] Other Encounters Encounter Date Encounter Type Care Provider Facility Start: 02-12-2025 End: 02-12-2025 ambulatory [facility] Work Phone: Start: 02-12-2025 End: 02-12-2025 Patient encounter procedure [facility] Physician [facility] Work Phone: Start: 01-18-2025 End: 01-18-2025 ambulatory [facility] Work Phone: Start: 01-18-2025 End: 01-18-2025 Patient encounter procedure [facility] Physician [facility] Work Phone: Start: 11-12-2024 End: 11-12-2024 ambulatory [facility] Work Phone: Start: 11-12-2024 End: 11-12-2024 Patient encounter procedure [facility] Physician [facility] Work Phone: Start: 09-05-2024 Non-patient / Non-visit [facility] Physician [facility] Work Phone: Start: 08-30-2024 Patient encounter status [facility] Start: 08-30-2024 End: 08-30-2024 Patient encounter procedure [facility] Physician [facility] Work Phone: Start: 06-28-2024 End: 06-28-2024 ambulatory [facility] Work Phone: Start: 06-28-2024 End: 06-28-2024 Patient encounter procedure [facility] Physician [facility] Work Phone: Start: 04-03-2024 End: 04-03-2024 ambulatory MD Kareen Quintanilla Work Phone: [facility] Work Phone: Start: 04-03-2024 End: 04-03-2024 Patient encounter procedure MD Kareen Quintanilla Work Phone: [facility] Physician [facility] Work Phone: Start: 03-02-2024 End: 03-02-2024 ambulatory MD Kareen Quintanilla Work Phone: [facility] Work Phone: Start: 03-02-2024 End: 03-02-2024 Patient encounter procedure MD Kareen Quintanilla Work Phone: [facility] [place] [facility] Work Phone: Start: 02-17-2024 End: 02-17-2024 ambulatory MD Kareen Quintanilla Work Phone: [facility] Work Phone: Start: 02-17-2024 End: 02-17-2024 Patient encounter procedure MD Kareen Quintanilla Work Phone: [facility] Work Phone: Start: 02-06-2024 End: 02-06-2024 ambulatory Becca Xiong II Facility:[facility] Start: 02-06-2024 End: 02-06-2024 ambulatory MD Kareen Quintanilla Work Phone: [facility] Work Phone: Start: 02-06-2024 End: 02-06-2024 Patient encounter procedure MD Kareen Quintanilla Work Phone: [facility] [place] Work Phone: Start: 01-19-2024 End: 01-20-2024 ambulatory BECCA XIONG Facility:[facility] Start: 01-19-2024 End: 01-19-2024 Patient encounter procedure MD Kareen Quintanilla Work Phone: [facility] Work Phone: Start: 01-19-2024 End: 01-19-2024 Patient encounter procedure BECCA XIONG [facility] Start: 01-13-2024 End: 01-13-2024 ambulatory [facility] Work Phone: Start: 01-13-2024 End: 01-13-2024 Patient encounter procedure [facility] Physician [facility] Work Phone: Start: 12-30-2023 End: 12-30-2023 ambulatory [facility] Work Phone: Start: 12-30-2023 End: 12-30-2023 Patient encounter procedure [facility] Physician [facility] Work Phone: Start: 11-28-2023 Non-patient / Non-visit [facility] Physician [facility] Work Phone: Start: 10-28-2023 End: 10-28-2023 ambulatory Kareen Quintanilla Other [employer] Other Start: 10-28-2023 Telephone encounter Kareen Quintanilla [facility] Start: 09-28-2023 End: 09-28-2023 ambulatory Kareen Quintanilla Other [employer] Other Start: 09-28-2023 Telephone encounter Kareen Quintanilla [facility] Start: 08-01-2023 End: 08-01-2023 ambulatory Kareen Quintanilla Other [employer] Other Start: 08-01-2023 Telephone encounter Kareen Quintanilla [facility] Start: 07-15-2023 End: 07-15-2023 ambulatory Imad Asaad Facility:[facility] Start: 07-15-2023 End: 07-15-2023 Admission to same day surgery center MD Kareen Quintanilla Work Phone: [facility] Work Phone: Start: 07-15-2023 End: 07-15-2023 ambulatory MD Kareen Quintanilla Work Phone: [facility] Work Phone: Start: 07-01-2023 End: 07-01-2023 ambulatory Kareen Quintanilla Other [employer] Other Start: 07-01-2023 Telephone encounter Kareen Quintanilla [facility] Start: 06-03-2023 End: 06-03-2023 ambulatory Sweta Avalos Other [employer] Other Start: 06-03-2023 Telephone encounter Sweta Luislindsey [facility] [employer] Start: 05-13-2023 End: 05-13-2023 ambulatory Kareen Quintanilla Other [employer] Other Start: 05-13-2023 Office outpatient vi sit 15 minutes Kareen Quintanilla [facility] Start: 05-05-2023 End: 05-05-2023 ambulatory Kareen Quintanilla Other [employer] Other Start: 05-05-2023 Telephone encounter Kareen Quintanilla [facility] Start: 03-09-2023 End: 03-09-2023 ambulatory Kareen Quintanilla Other [employer] Other Start: 03-09-2023 Telephone encounter Kareen Quintanilla [facility] Start: 12-16-2022 End: 12-16-2022 ambulatory Kareen Quintanilla Other [employer] Other Start: 12-16-2022 Telephone encounter Kareen Quintanilla [facility] [employer] Start: 11-16-2022 End: 11-16-2022 ambulatory Kareen Quintanilla Other [employer] Other Start: 11-16-2022 Telephone encounter Kareen Quintanilla [facility] Start: 11-12-2022 End: 11-13-[address] KAREEN QUINTANILLA Facility: Start: 11-12-2022 Office outpatient vi sit 15 minutes Kareen Quintanilla [facility] Start: 11-12-2022 Telephone encounter Kareen Quintanilla [facility] Start: 11-10-2022 End: 11-10-2022 ambulatory Kareen Quintanilla Other [employer] Other Start: 11-10-2022 Telephone encounter Kareen Quintanilla [facility] Start: 07-23-2022 Adult health examination Kareenrosenda Quintanilla Other [employer] Other Start: 05-27-2022 End: 08-25-2022 Patient encounter procedure KAREEN QUINTANILLA [facility] Procedures Date Procedure Procedure Detail Performing Clinician Start: 02-06-2024 MRI of right knee MD Berenice Quintanilla Work Phone: Start: 07-15-2023 Screening colonoscopy Primitivo D Kareen Quintanilla Work Phone: Hysterectomy KAREEN QUINTANILLA neck surgery KAREEN QUINTANILLA rib surgery KAREEN QUINTANILLA Screening for malign ant neoplasm of breast Kareen Quintanilla Other Plan of Treatment Date Care Activity Detail Author Start: 01-18-2025 Patient referral [facility] Work Phone: Start: 02-06-2024 MR Knee - right WO contrast [facility] Start: 02-06-2024 MRI of right knee MR knee RT wo con [facility] Start: 12-31-2023 Patient referral [facility] Work Phone: Start: 07-15-2023 [facility] Comprehensive metabo lic 2000 panel - Serum or Plasma [facility] EKG 12 channel panel [facility] MR Knee - right WO contrast [facility] Patient referral [facility] Work Phone: XR Cervical spine 5 Views [facility] XR Chest 2 Views [facility] XR Chest 2 Views [facility] XR Chest 2 Views [facility] XR Knee - right 4 Views [facility] XR Pelvis 1 or 2 Views [facility] XR Sinuses GE [facility] Payers Date Payer Category Payer Unknown 2023 Self-pay 1970 Unknown [id number] 1970 Unknown [id number] 1960 Unknown [id number] Unknown [id number] Unknown [id number] Social History Date Type Detail Facility Tobacco Current, Cigaret taco, 10 per day. [facility] Tobacco smoking status No Smoking Status Entered [facility] Sex Assigned At Female [facility] Start: 07-15-2023 End: 07-15-2023 Tobacco smoking status NHIS Smoker (finding) [facility] Start: 1970 Sex Assigned At Female [facility] Start: 11-12-2024 End: 02-12-2025 Sex Female (finding) [facility] NEGATED: Highlighted row [facility] Goals Date Patient Goal Desired Activity /State Clinical Notes 11-12-2022 to 01-18-2025 Note Date & Type Note Facility 01-18-2025 Evaluation note Diagnosis Onset Date Resolution Allergic rhinitis due to pollen acute January 18, 2025 8: 54am Anxiety acute January 18, 2025 8:54am Cervical pain (neck) acute January 18, 2025 8:54am Chronic cough acute February 12, 2 025 1:44pm Fatigue acute February 12, 2025 1:44pm [facility] Work Phone: 1(700) 570-657102-24-2025 Evaluation note* Diagnosis Onset Date Resolution Status Admit Date Bronchitis acute November 12, 2024 11:08am Anxiety acute January 18, 2025 8:54am Cervical pain (neck) acute January 18, 2025 8:54am Chronic pain of right knee acute January 18, 2025 8:54am [facility] Work Phone: 1(434) 296-506112-12-2024 Evaluation note* Diagnosis Onset Date Resolution Status Admit Date Anxiety acute August 30, 2024 10:53am Cervical pain (neck) acute Dece mb2023 10:53am Chronic pain of right knee acute August 30, 2024 10:53am Dysuria acute August 30, 2024 10:53am Fatigue acute August 30, 2024 10:53am Medication management acute Dec 2023 10:53am Memory changes acute August 192023 10:53am Bronchitis acute November 12, 2024 11:08am [facility] Work Phone: 1(617) 913-616310-27-2023 [facility]* Encounter Date Diagnosis Assessment Notes Treatment Notes Treatment Clinical Notes Apr, Acute coccygeal pain (ICD-10 - M53.3) Check xray Apr, Thoracic spine pain (ICD-10 - M54.6) Eval xray for thoracic spine dysfunction Apr, Dyspnea, unspecified (ICD-10 - R06.00) Monitor w CXR, 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 Grandparent had colon cancer. [employer] Other 02-28-2023 Evaluation note* Encounter Date Diagnosis Assessment Notes Treatment Notes Treatment Clinical Notes Oct, Acute non-recurrent maxillary sinusitis (ICD-10 - J01.00) [employer] Other 02-28-2023 Evaluation note* Encounter Date Diagnosis Assessment Notes Treatment Notes Treatment Clinical Notes Oct, Other chronic pain (ICD-10 - G89.29) Oct, Pain in thoracic spine (ICD-10 - M54.6) Oct, Cervical pain (neck) (ICD-10 - M54.2) [employer] Other 02-24-2023 Evaluation note* Encounter Date Diagnosis Assessment Notes Treatment Notes Treatment Clinical Notes Oct, Thoracic spine pain (ICD-10 - M54.6) Oct, Cervical pain (neck) (ICD-10 - M54.2) [employer] Other 02-24-2023 Evaluation note* Encounter Date Diagnosis Assessment Notes Treatment Notes Treatment Clinical Notes Oct, Thoracic spine pain (ICD-10 - M54.6) Chronic problem that has worsened. Will check with xray. Oct, Cervical pain (neck) (ICD-10 - M54.2) increased pain as described. Check imaging and review previous reports. [employer] Other Evaluation + Plan note No data available for this section [facility] [employer] Other Evaluation noteNo assessment information available [facility] Work Phone: Evaluation note* Diagnosis Onset Date Resolution Status Anxiety acute Chronic pain of right knee a cute Skin lesion acute [facility] Work Phone: Evaluation note* Diagnosis Onset Date Resolution Status Anxiety acute Chronic pain of right knee a cute Skin lesion acute Chronic pain of right knee a cute Thoracic back pain acute Internal derangement of knee acute Primary osteoarthritis of right knee acute Recurrent right knee instability acute Right knee pain acute [facility] Work Phone: Evaluation note* Diagnosis Onset Date Resolution Status Anxiety acute Chronic pain of right knee a cute Skin lesion acute Chronic pain of right knee a cute Thoracic back pain acute Internal derangement of knee acute Primary osteoarthritis of right knee acute Recurrent right knee instability acute Right knee pain acute Pes anserinus bursitis of right knee acute Bronchitis acute Left-sided chest pain acute [facility] Work Phone: Evaluation note* Diagnosis Onset Date Resolution Status Chronic pain of right knee a cute Thoracic back pain acute Internal derangement of knee acute Primary osteoarthritis of right knee acute Recurrent right knee instability acute Right knee pain acute Pes anserinus bursitis of right knee acute Bronchitis acute Left-sided chest pain acute [facility] Work Phone: History and physical note Author Sweta Avalos [facility] July 15, 2023 10:09am Note Date/Time July 15, 2023 1 0:09am [facility] [address] [place] [address] Gastroenterology H&P Signed Patient: Chayito Subramanian MR#: [id number] : 1970 Acct:[id number] Age/Sex: 52 / F Adm Date: 3 Loc: Room: Type: [facility] Attending Dr: Sweta Avalos MD Copies to: MD Kareen Patten MD~ Date of Service: 07/15/2023 HISTORY & PHYSICAL: Patient's history with special attention to the cardiovascular, pulmonary systems and the current problem was reviewed with the patient immediately prior to the procedure. Present medications and doses reviewed in the EMR. Allergies and pertinent laboratory tests were also reviewedat this time in the EMR. The physical examination, as below, was then performed. Indication, assessment and HPI: 52-year-old female here for screening colonoscopy Family history of GI malignancy? No PHYSICAL EXAMINATION Mouth and Pharynx : Moist mucus membranes, normal dentition Cardiac: Regular rate, regular rhythm Pulmonary: Clear to auscultation bilaterally, no wheezing Neurological: Alert and oriented x3, no focal deficits noted Abdomen: Abdomen soft, non-tender REVIEW OF SYSTEMS Constitutional: Denies malaise, fevers Cardiovascular: Denies chest pain, palpitations Respiratory: Denies shortness of breath, wheezing Gastrointestinal: Per HPI Genitourinary: Denies dysuria, polyuria Musculoskeletal: Denies joint swelling, joint stiffness Neurological: Denies numbness, tingling Integumentary: Denies rashes, skin lesions Endocrine: Denies fatigue, weight loss Written informed consent obtained from the patient. Risks (including but not limited to perforation, infection, bloating, bleeding, need for emergent surgeryand loss of life), benefits and alternatives explained and questions answered. The patient verbalized understanding. Based on history patient is an appropriate candidate for the procedure. Sweta Avalos M.D. Documented By: Sweta Avalos MD 07/15/23 1009 Signed By: <Electronically signed by Sweta Avalos MD> 07/15/23 1009 [facility] Work Phone: [employer] general Narrative - Reported* Type Description Date Medical History anxiety [employer] Other History general Narrative - Reported* Type Description Date Medical History anxiety Surgical History ENDOMETRIAL ABLATION Surgical History CYSTECTOMY- PARTIAL Surgical History HYSTERECTOMY Surgical History SPINAL FUSION Surgical History BACK SURGERY Hospitalization History SEE SURGICAL HX [employer] Other Hospital Discharge instructions No data available for this section [facility] Additional Instructions DISCHARGE INSTRUCTIONS FOR COLONOSCOPY WHAT TO EXPECT: - You may feel full, gassy or cramping after your procedure. In some cases, this may be from a few hours to a day. Walking may help relieve the discomfort. - If you have polyp(s) removed you may note some minor bloody discharge after your first bowel movements. - You should begin to recover from anesthesia within 1 hour of the procedure, however may feel groggy for the next 24 hours. DO's AND DON'Ts: - Call your doctor right away if you have a hard abdomen, severe pain, are passing lots of bright red blood or clots. - Call your doctor if you develop any rashes, hives or difficulty breathing. - Let your doctor know if you have not had a bowel movement by 3 days after your procedure. - If you take 81 mg aspirin for your heart it is safe to resume this medication. - If you take other blood thinner medications your doctor will instruct you when these can safely be resumed. - Do NOT drive for 24 hours. - Do NOT operate machinery such as power tools, lawn mowers, snow blowers, sewing machines, etc. for 24 hours. - Avoid alcoholic beverages and drugs for allergies, nerves, or sleep. - Do NOT stay alone. Do NOT leave your child unattended. - Do NOT make important personal or business decisions or sign any legal documents. - Eat solid foods and drink liquids in smaller amounts than usual until normal appetite returns. If you should experience an upset stomach, liquids high in sugar content (soda, Juan José-Aid, non-acid juices) are recommended. - You can resume normal activities tomorrow. FOLLOW UP & RECOMMENDATIONS: -Notify the doctor if you have any problems. -Repeat colonoscopy in 10 years. -Follow up with PCP. -Office number [phone]. [facility] Work Phone: Progress note No data available for this section [facility] Summary Purpose Family History Relationship Condition Age at Onset Recorded Date/T zhao grandparent Malignant neoplasm of colon Unknown Not Specified Secondary adenocarcinoma of lymph node U nknown father Myocardial infarction Unknown Gastrointestinal hemorrhage Unknown Relationship Condition Age at Onset Recorded Date/T zhao grandparent Malignant neoplasm of colon Unknown mother Secondary adenocarcinoma of lymph node Un known father Myocardial infarction Unknown Gastrointestinal hemorrhage Unknown Advance Directives Advance Directive Response Recorded Date/ Time Advance Directives No July 14, 2023 11:38am Advance Directive Response Recorded Date/ Time Advance Directives No July 14, 2023 10:38am Reason for Referral Reason screening colonoscop y Diagnosis 1 Screening for colon cancer (Z12.11) Referral Organization [facility] [employer] Referring Provider First Name Kareen Referring Provider Last Name Socorro Referring Provider Specialty [facility] Referred Organization [facility] Referred Address [address],[address] Referred Provider Specialty Gastroentero logy Referral Priority Routine Reason *FU 12/07 CALL See phone note, Last OV note and xrays. thanks Diagnosis 1 Other chronic pain ( G89.29) Referral Organization [facility] [employer] Referring Provider First Name Kareen Referring Provider Last Name Socorro Referring Provider [facility] Referred [facility] Referred Address [address] [place], [place],[address] Referred Provider Specialty Pain Medicin e Referral Priority Routine General Notes Melodie Tate 10:07:41 AM >RECEIVED TODAY Melodie Tate 11/19/2022 10:11:10 AM >ATTACHMENTS MADE, NOTES LOCKED, REFERRAL FAXED Melodie Tate 11/29/2022 08:38:20 AM >faxed first attempt letter Melodie Tate 11/30/2022 07:48:51 AM >received fax back that pt was called twice, and has not returned calls. will follow up with patient Melodie Tate 11/30/2022 02:54:09 PM >CALLED AND LEFT DETAILED MESSAGE TO SEE IF STILL NEEDIING REFERRAL Clinical Notes DR. MALATHI BARRON p: [phone] f: [phone] Chief Complaint and Reason for Visit Chief Complaint Screening Chief Complaint Amb Documentation medication review Chief Complaint Amb Documentation medication review neck/back pain Reason for Visit Anxiety Chronic pain of right knee Skin lesion Chief Complaint Amb Documentation medication review neck/back pain CONSULT DR KAREEN QUINTANILLA RT KNEE PAIN,NX M25.56 Reason for Visit Anxiety Chronic pain of right knee Skin lesion Chronic pain of right knee Thoracic back pain Internal derangement of knee Primary osteoarthritis of right knee Recurrent right knee instability Right knee pain Chief Complaint Amb Documentation medication review neck/back pain CONSULT DR KAREEN QUINTANILLA RT KNEE PAIN,NX M25.56 MRI RESULTS [facility] Reason for Visit Anxiety Chronic pain of right knee Skin lesion Chronic pain of right knee Thoracic back pain Internal derangement of knee Primary osteoarthritis of right knee Recurrent right knee instability Right knee pain Chief Complaint medication review neck/back pain CONSULT DR KAREEN QUINTANILLA RT KNEE PAIN,NX M25.56 MRI RESULTS [facility] cough, fever Reason for Visit Anxiety Chronic pain of right knee Skin lesion Chronic pain of right knee Thoracic back pain Internal derangement of knee Primary osteoarthritis of right knee Recurrent right knee instability Right knee pain Pes anserinus bursitis of right knee Bronchitis Left-sided chest pain Chief Complaint neck/back pain CONSULT DR KAREEN QUINTANILLA RT KNEE PAIN,NX M25.56 MRI RESULTS [facility] cough, fever medication check Reason for Visit Chronic pain of righ t knee Thoracic back pain Internal derangement of knee Primary osteoarthritis of right knee Recurrent right knee instability Right knee pain Pes anserinus bursitis of right knee Bronchitis Left-sided chest pain Chief Complaint medication check Med Check Chief Complaint Admit Date Fatigue August 30, 2024 10:53am CC Adult Risk Stratification September 052023 3:37pm Not Feeling Well November 12, 2024 11:08am Reason for Visit Admit Date Anxiety August 30, 2024 10:53am Cervical pain (neck) August 30, 2024 10:53am Chronic pain of right knee August 10:53am Dysuria August 30, 2024 10:53am Fatigue August 30, 2024 10:53am Medication management August 30 10:53am Memory changes August 30, 2024 10:53am Bronchitis November 12, 2024 11:08am Chief Complaint Admit Date Not Feeling Well November 12, 2024 11:08am med refills January 18, 2025 8:54am Reason for Visit Admit Date Bronchitis November 12, 2024 11:08am Anxiety January 18, 2025 8:54am Cervical pain (neck) January 18, 2025 8:54a m Chronic pain of right knee January 18, 2025 8:54am Chief Complaint Admit Date med refills January 18, 2025 8:54am Fatigue, congestion, weak February 12, 2025 1:44pm Reason for Visit Admit Date Allergic rhinitis due to pollen January 18, 2025 8:54am Anxiety January 18, 2025 8:54am Cervical pain (neck) January 18, 2025 8:54a m Chronic cough February 12, 2025 1:44p m Fatigue February 12, 2025 1:44p m Additional Source Comments Patient Care team informatio n (unrecognized section and content) Team Status: Active Member Role Status Dates Kareen Quintanilla MD Primary Care Provider Active Team Status: Inactive Member Role Status Dates Kareen Quintanilla MD Primary Care Provide r, Attending Provider Active Start: December 30, 2023 End: December 30, 2023 Team Status: Inactive Member Role Status Dates Kareen Quintanilla MD Primary Care Provide r, Attending Provider Active Start: January 13, 2024 End: January 13, 2024 Team Status: Inactive Member Role Status Dates Kareen Quintanilla MD Primary Care Provider Active Start: January 19, 2024 End: January 19, 2024 Becca Xiong II, MD Attending Provider Active Start: January 19, 2024 End: January 19, 2024 Team Status: Inactive Member Role Status Dates Kareen Quintanilla MD Primary Care Provider Active Start: February 06, 2024 End: February 06, 2024 Becca Xiong II, MD Attending Provider Active Start: February 06, 2024 End: February 06, 2024 Team Status: Inactive Member Role Status Dates Kareen Quintanilla MD Primary Care Provider Active Start: February 17, 2024 End: February 17, 2024 Becca Xiong II, MD Attending Provider Active Start: February 17, 2024 End: February 17, 2024 Team Status: Inactive Member Role Status Dates Kareen Quintanilla MD Primary Care Provide r, Attending Provider Active Start: March 02, 2024 End: March 02, 2024 Team Status: Active Member Role Status Dates Kareen Quintanilla MD Primary Care Provider Active Start: November 28, 2023 NILSON Bertrand Attending Provider Active Start : November 28, 2023 Team Status: Inactive Member Role Status Dates Kareen Quintanilla MD Primary Care Provider Active Sweta Avalos MD Attending Provider Active Team Status: Inactive Member Role Status Dates Kareen Quintanilla MD Primary Care Provide r, Attending Provider Active Start: April 03, 2024 End: April 03, 2024 Team Status: Inactive Member Role Status Dates Kareen Quintanilla MD Primary Care Provide r, Attending Provider Active Start: June 28, 2024 End: June 28, 2024 Team Status: Inactive Member Role Status Dates Kareen Quintanilla MD Primary Care Provide r, Attending Provider Active Start: August 30, 2024 End: August 30, 2024 Team Status: Active Member Role Status Dates Kareen Quintanilla MD Primary Care Provide r, Attending Provider Active Start: September 05, 2024 Team Status: Inactive Member Role Status Dates Kareen Quintanilla MD Primary Care Provide r, Attending Provider Active Start: November 12, 2024 End: November 12, 2024 Team Status: Inactive Member Role Status Dates Kareen Quintanilla MD Primary Care Provide r, Attending Provider Active Start: January 18, 2025 End: January 18, 2025 Team Status: Inactive Member Role Status Dates Kareen Quintanilla MD Primary Care Provide r, Attending Provider Active Start: February 12, 2025 End: February 12, 2025 INFORMATION SOURCE (unrecogn ized section and content) DATE CREATED AUTHOR 11/19/2022 [facility] DATE CREATED AUTHOR AUTHOR'S ORGANIZ ATION 01/22/2024 [facility] DATE CREATED AUTHOR AUTHOR'S ORGANIZ ATION 02/16/2024 [facility] REASON FOR VISIT (unrecogniz ed section and content) prescription refillprescript ion refillLower Back Painhead coldxraysPN MGMT REFERRAL NOTELower Back PainrefillRefillfollow upMAIL PPWrefillrefillrefillrefill Goals (unrecognized section and content) Goals may be documented in a n alternate section FOR RECORDS PERTAINING TO PATIENTS WHO ARE OR HAVE BEEN ENROLLED IN A CHEMICAL DEPENDENCY/SUBSTANCEABUSE PROGRAM, SOME INFORMATION MAY BE OMITTED. This clinical summary was aggregated from multiple sources. Caution should be exercised in using it in the provision of clinical care. This summary normalizes information from multiple sources, and as a consequence, information in this document may materially change the coding, format and clinical context of patient data. In addition, data may be omitted in some cases. CLINICAL DECISIONS SHOULD BE BASED ON THE PRIMARY CLINICAL RECORDS. [facility] [employer] [facility]. provides no warranty or guarantee of the accuracy or completeness of information in this document.
--- NOTE | 2025-05-02 12:30 | PM.CN ---
Consult Note: HPI Data of Consult Patient: known to practice within the last 3 years Consult date: 05/02/25 Requesting Physician: Yolanda Stephens NP Primary Care Provider: Kareen Castellanos MD Consult Narrative Reason for consult: neck pain Narrative: Chayito Subramanian a pleasant 54 year old female presents for evaluation of neck pain, hx of C5-6 fusion [place] [address] Chung at [facility]. Has noted neck pain >15 years. chronically on tramadol, motrin, lorzapem, celebrex with mild relief. She is working with her PCP to wean off of tramadol. xray imaging of cervical spine and thoracic spine consistent with degenerative changes. Pain today 7/10 burning pressure aching in neck and bilateral shoulders, reports frequent headaches. Pain increasing with pushing, pulling, standing, walking, activity, and sleep. Pain mildly improved with heat/ice, and sitting. continues to report numbness tingling and weakness to left arm. recently underwent cervical MRI with results below. cc:: CC: Yolanda Stephens NP Review of Systems ROS Status of ROS 10 or more systems reviewed and unremarkable except as noted in history and below Meds Home Medications and Allergies Home Medications ?Medication ?Instructions ?Recorded ?Confirmed ?Type celecoxib 200 mg capsule (Celebrex) 200 mg PO DAILY 02/20/25 02/20/25 History lorazepam 0.5 mg tablet 0.5 mg PO TID PRN anxiety 02/20/25 02/20/25 History tramadol 50 mg tablet 50 mg PO TID PRN pain 02/20/25 02/20/25 History gabapentin 100 mg capsule 100 mg PO TID #90 caps 04/03/25 Rx Allergies Allergy/AdvReac Type Severity Reaction Status Date / Time Penicillins Allergy Mild Hives Verified 02/20/25 10:06 Exam Constitutional Documenting provider has reviewed patient's vital signs: yes Common normals: no apparent distress, oriented x3, healthy appearing, alert and well nourished General appearance: cooperative HENMT Common normals: normocephalic, hearing grossly normal bilaterally and moist oral mucous membranes Head and scalp: normocephalic Eye Common normals: PERRL Pupil: PERRL Neck & C-Spine Common normals: full ROM General: normal visual inspection Cervical spine: cervical ROM abnormal, pain with cervical ROM, cervical spine tenderness, paracervical muscle tenderness left>right and trapezius muscle tenderness bilateral Other: positive spurlings strength 4/5 in RUE and 5/5 in LUE Chest Common normals: inspection of chest normal Respiratory Common normals: normal respiratory effort, no retractions and no use of accessory muscles Neuro Common normals: oriented x3 Sensorium/orientation: alert Psych Common normals: mental status grossly normal, thought process normal, cooperative, affect normal, speech normal and activity/motor behavior normal Speech: normal speech Thought process: normal thought process Results Imaging cervical MRI: Attestation: I have reviewed the pertinent imaging results. Radiologist's impression: FINDINGS: The bones of the cervical spine are in anatomic alignment. There is preservation of vertebral body heights. Anterior and intervertebral fusion is noted at C5-C6. The marrow signal is within normal limits. The cord is normal in signal. No epidural or paraspinous fluid collection is appreciated. The visualized paraspinous soft tissues are within normal limits. The prevertebral soft tissues are within normal limits. At C2-C3: There is a normal disc, central canal, and neural foramen. At C3-C4: There is a normal disc, central canal, and neural foramen. At C4-C5: There is uncovertebral joint spurring with mild bilateral neural foraminal narrowing. No spinal canal narrowing. At C5-C6: There is anterior and intervertebral fusion. No significant stenosis. At C6-C7: There is a central disc protrusion with uncovertebral joint spurring and facet hypertrophy. There is mild bilateral neural foraminal narrowing with moderate spinal canal stenosis. At C7-T1: There is a normal disc, central canal, and neural foramen. Additional Findings Additional findings: If on a controlled substance or opioids, I have checked an [place] report on this patient and there are no aberrancies noted in the prescribing history.??If on a controlled substance or opioid a drug screen was completed and reviewed within the last year, and if there has not been a drug screen completed we ordered one today to monitor higher risk, state monitored pain medication use. As part of providing excellent, safe, comprehensive care, the following was completed at our patient's visit: 1. A medication reconciliation and review to ensure accurate knowledge of current/active medications, including asking our patients to inform us about any [id number]-[id number] medications or herbal remedies/nutritional supplements/alternative remedies. 2. A review to specifically ensure our patients have had annual screening for screening for depression, screening for tobacco use, and screening for unhealthy alcohol use. For concerning screenings had a discussion with the patient, provided patient education, and recommended follow-up with primary care provider when appropriate. If patient noted with a risk of falling, they received education on strength, gait, and balance training to prevent future risk of falling. Portions of this note may have been carried over from the previous visit and updated as appropriate. Please note this office utilizes paper charting in addition to the electronic medical record. A list of current medications, vitals, and PMH is available there as the clinical staff outside of myself do not have access to [employer] charting during the clinic day operations. As part of providing quality comprehensive care the current medications, vitals, and PMH were reviewed in the paper chart. Assessment and Plan Assessment and Plan (1) Cervical radiculopathy: Assessment and Plan: The patient has had over 3 months of moderate to severe neck and LUE pain with functional impairment and inadequate response to conservative care including NSAIDS (unless there are contraindication such as concurrent blood thinners), multiple oral or topical pain medications, and home exercise program/physical therapy.? Patient has completed >6 weeks of guided home exercise program and/or formal physical therapy program without relief of their symptoms.? The Oswestry Disability Index was completed, and the patient scored a 46%.? The patient noted the following:??moderate to severe pain impacting ADLs, standing, sleeping, social life, travel (2) Failed neck syndrome: (3) Cervical spondylosis: (4) Myofascial pain: Plan cervical MRI reviewed with pt, will refer to NS at [facility] prior to injection therapy. dc gabapentin due to severe drowsiness. continue medication management through PCP. cancel further PT. f/u after NS consultation if non surgical
== END 2025-05-02 11:35 | disposition home or self-care (01) ==
LOC: PM 11:38
PROVIDERS: PCP Family Medicine; Visit Provider Nurse Practitioner
DX: M54.12 Radiculopathy, cervical region (principal); M96.1 Postlaminectomy syndrome, not elsewhere classified; M47.812 Spondylosis without myelopathy or radiculopathy, cervical region; M79.18 Myalgia, other site
CPT/HCPCS: G0463

== ENCOUNTER 2025-07-11 11:09 | Outpatient (OUT) | payer OTHER, SELFPAY ==
--- OUTSIDE RECORDS SUMMARY | 2025-07-03 06:56 | XMS_ITS | Continuity of Care Document ---
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 Name Role Phone Kareen Castellanos MD Primary Care Provider Kareen Castellanos MD Attending Provider Shey Sapp CMA Attending Provider [facility] Care Teams Patient Care Team Team Status: Active Member Role Status Dates Kareen Castellanos MD Primary Care Provider Active Visit Care Team Team Status: Inactive Member Role Status Linda Castellanos MD Primary Care Provider Active Start: May 09, 2025 End: May 09, 2025Autumn Ceballos ProviderActiveStart: May 09, 2025 End: May 09, 2025 Patient Care Team Team Status: Active Member Role Status Linda Castellanos MD Primary Care Provider Active Start: June 27, 2025 Shey Sapp CMAAttvinnie ProviderActiveStart: June 27, 2025 Patient Care Team Team Status: Inactive Member Role Status Linda Castellanos MD Primary Care Provider Active Start: July 03, 2025 End: July 03, 2025Autumn Ceballos ProviderActiveStart: July 03, 2025 End: July 03, 2025 Chief Complaint and Reason for Visit Chief Complaint Admit Date 3 month f/u, lvm 04/16 km May 09 9:23am Amb Documentation June 27, 2025 10 :55am R Ear Popping July 03, 2025 1 0:26am Reason for Visit Admit Date Anxiety May 09, 2025 9: 23am Cervical pain (neck) May 09, 2025 9 :23am Screening mammogram for breast cancer Oc tober 2024 10:26am Allergies, Adverse Reactions, Alerts Allergen Type Severity Reaction Last Updated Verified Status triamcinolone Allergy Mild Vomiting June 10:29am Yes Active ibuprofen Allergy Unknown Unknown Reaction July 03, 2025 10:29am Yes Active levofloxacin Allergy Unknown Unknown Reaction Octobe r 2024 10:29am Yes Active metaxalone Allergy Unknown Unknown Reaction July 03, 2025 10:29am Yes Active penicillin G Allergy Unknown Unknown Reaction Octobe r 2024 10:29am Yes Active Social History Smoking Status Status Start Date End Date Date of Observa tion Smokes tobacco daily (finding) July 15, 2023 9:26am Observation Status Observation Response Date of Response Legal Sex Female (finding) Sex Assigned At BirthFemaleApril 1970 Family History Relationship Condition Age at Onset Recorded Date/T zhao grandparent Malignant neoplasm of colon Unknown motherSecondary adenocarcinoma of lymph nodeUnknownfatherMyocardial infarction UnknownGastrointestinal hemorrhageUnknown Problems Active Problems Medical Problem Onset Date Status Left-sided chest pain Unknown Active Primary osteoarthritis of right knee Unknown Active Screening mammogram for breast cancer Unknown Active Recurrent right knee instability Unknown Active Pes anserinus bursitis of right knee Unknown Active Allergic rhinitis due to pollen Unknown Active Fatigue Unknown Active Medication management Unknown Active Anxiety Unknown Active Chronic cough Unknown Active Chronic pain of right knee Unknown Activ e Dysuria Unknown Active Chronic left maxillary sinusitis Unknown Active Wellness examination Unknown Active Skin lesion Unknown Active Memory changes Unknown Active Right knee pain Unknown Active Cervical pain (neck) Unknown Active Thoracic back pain Unknown Active Bronchitis Unknown Active Internal derangement of knee Unknown Act lamin Medications Medication Status Dose Units Route Directions Qty Days St art Date Stop Date End Date Instructions Adherence Lorazepam 0.5 mg tablet Discontinued 0.5 MG PO Three times clara ly as needed for Anxiety 20 7 December 28, 2023 1:20pm January 03, 2024 12:52pmTramadol 50 mg bvlgnhUbplxdpiugyb614ZGYJVwczt times daily as needed for oces222Lwxeg 2023 1:20pmApril 2023 12:44pm2 tabs q8h prnTramadol 50 mg acqsadUukzyfefsfrr98MYXABvpbd times daily as needed for bmzn3649Thasi 2023 12:43pmMay 2023 12:29pmLorazepam 0.5 mg tablet Discontinued0.5MGPOThree times daily as needed for Uaytzwu6619Rnrwm 2023 12:52pmMay 2023 12:29pmLorazepam 0.5 mg tabletDiscontinued0.5MGPOThree times daily as needed for Mxgohop5980Feh 2023 12:29pmJune 2023 10:24amTramadol 50 mg yehwwcQkhygyxmzjtg24NMEFJzynt times daily as needed for dckq0487Nnh 2023 12:29pmJune 2023 9:36amLorazepam 0.5 mg tablet Discontinued0.5MGPOThree times daily as needed for Xbkhvhm5963Rfoj 2023 10:23amJuly 2023 10:58amCelecoxib (Celebrex) 200 mg hzyqhhnIogggcgcahqe912 ERBSFuzwv16Yzbp 2023 10:57amFebruary 2024 8:24amLorazepam 0.5 mg tabletDiscontinued0.5MGPOThree times daily as needed for Quqosre0334Suxv 2023 10:58amAugust 2023 10:22amTramadol 50 mg ydxfxkFipxfeydedpn53GVZH Three times daily as needed for yfzj2236Auqs 2023 10:58amAugust 2023 10:22amLorazepam 0.5 mg tabletDiscontinued0.5MGPOThree times daily as needed for Fhcxuob5464Embuhw 2023 10:22amSeptember 2023 8:53pmTramadol 50 mg tputlyFkpdiqvvathx57JASSUhmkm times daily as needed for vpsw9175Yhjbzw 2023 10:22amSeptember 2023 8:53pmLorazepam 0.5 mg tabletDiscontinued0.5MG POThree times daily as needed for Tbdfwxe5105Oykoczcwk 2023 8:52pmOctober 2023 8:18amp/u 05/30, start 06/01Tramadol 50 mg hmgkbfHwhyovzlwrnl54PYDQ Three times daily as needed for ureh0169Kcoqkfiqb 2023 8:52pmOctober 2023 1:35pmp/u 05/30, start 06/01Lorazepam 0.5 mg tabletDiscontinued0.5MGPOThree times daily as needed for Rcyccsz7451Xxdifpk 2023 8:18amNovember 2023 8:14amTramadol 50 mg kqqrbaLyfqlonrxtud02WFATXppch times daily as needed for tjio5789Yplzdulz 2023 8:13amDecember 2023 10:30amLorazepam 0.5 mg tabletDiscontinued0.5MGPOThree times daily as needed for Zaqplsp7851Jreqpfek 2023 8:14amDecember 2023 10:30amLorazepam 0.5 mg tabletDiscontinued 0.5MGPOThree times daily as needed for Lisebtl9423Ugqfkttp 2023 10:30am Ozzie 2023 10:32amTramadol 50 mg fnlcffBddzfmygnljo07UNTTKtvng times daily as needed for xegc8434Avvnbazi 2023 10:30amJanuary 2024 10:35am Lorazepam 0.5 mg tabletDiscontinued0.5MGPOThree times daily as needed for Kpvywto0262Iwpvozie 2023 10:31amJanuary 2024 10:35amTramadol 50 mg prvkhcNwkmqdhnipfr99BEPTMoxmy times daily as needed for mivt8568Ssfxvjs 2024 10:33amFebruary 2024 11:25amLorazepam 0.5 mg tabletDiscontinued0.5MG POThree times daily as needed for Loyvqhz4360Vkzbaka 2024 10:33amFebruary 2024 11:25amCelecoxib (Celebrex) 200 mg fyserelOpvdnkigjmxy608RZEJAfkil68 October 21, 2024 8:23amJuly 2024 8:09amLorazepam 0.5 mg tablet Discontinued0.5MGPOThree times daily as needed for Qmkfbjl1875Zzebtoer 2024 11:25amFebruary 2024 11:26amTramadol 50 mg ogaxyjGhochbiwjdck50FSNR Three times daily as needed for cpzq9410Kexallag 2024 11:25amMarch 2024 8:31amLorazepam 0.5 mg tabletDiscontinued0.5MGPOThree times daily as needed for Zxzdhpq9237Aurbrbpq 2024 11:26amMarch 2024 8:31amLorazepam 0.5 mg tabletDiscontinued0.5MGPOThree times daily as needed for Oscxbck7257Dyztj 2024 8:31amApril 2024 9:37amTramadol 50 mg igugjfVfwuomcxyhsw47WDFJ Three times daily as needed for sisu3929Wbwos 2024 8:31amApril 2024 9:37amTramadol 50 mg qhynzsSiiecpsoymay19GDTWTgiuj times daily as needed for ospm1526Banxu 2024 9:37amMay 2024 8:35amLorazepam 0.5 mg tablet Discontinued0.5MGPOThree times daily as needed for Nkskmqe6393Seqba 2024 9:37amMay 2024 8:35amLorazepam 0.5 mg tabletDiscontinued0.5MGPOThree times daily as needed for Umplzqj1571Qza 2024 8:34amJune 2024 9:29am Tramadol 50 mg fkfjugXtjytomuftwj26ZMHJEqteh times daily as needed for esvb4457 May 2024 8:34amJune 2024 9:29amSulfamethoxazole-Trimethoprim 800-160 mg hsaoybEubgzcrlykyg4ALQIAXjbus mlbye89JpyFebruary 13, 2025 12:00amJuly 2024 10:16amLorazepam 0.5 mg tabletDiscontinued0.5MGPOThree times daily as needed for Dxhhbve1976Ulmb 2024 9:29amJuly 2024 8:09amTramadol 50 mg tablet Vskbdqevyoxl80CGCUTnfza times daily as needed for mdjw2769Bcxk 2024 9:29am March 29, 2025 8:09amCelecoxib (Celebrex) 200 mg gyehkpdZrsxuo384YUUBKyzga70 March 29, 2025 8:08amComplies with drug therapyLorazepam 0.5 mg tablet Discontinued0.5MGPOThree times daily as needed for Sxjwzxt1887Zxzf 2024 8:08amJuly 2024 8:10amTramadol 50 mg ppqxduUtsncyghjtgi40ENOLKradc times daily as needed for jcxy3621Kxlw 2024 8:08amJuly 2024 8:10am Lorazepam 0.5 mg tabletDiscontinued0.5MGPOThree times daily as needed for Jlnvtli5796Cgrn 2024 8:10amAugust 2024 7:55amTramadol 50 mg tablet Jemyiyytsmgq08KUEJMniip times daily as needed for kdah2678Jtqy 2024 8:10am May 01, 2025 7:55amLorazepam 0.5 mg tabletDiscontinued0.5MGPOThree times daily as needed for Phvrcms2558Fcmxpz 2024 7:55amSeptember 2024 8:50amTramadol 50 mg pvwbekQrjptextshvg80QFCUZqsvm times daily as needed for jzqc5210Bhajky 2024 7:55amSeptember 2024 8:50amLorazepam 0.5 mg tabletDiscontinued0.5MGPOThree times daily as needed for Dgvjahr3348Ygaeqtggz 2024 8:49amOctober 2024 10:28amTramadol 50 mg cgfxpjShbzcroesflk81SN POThree times daily as needed for vqjr8402Dsyoqmwgp 2024 8:49amOctober 2024 10:28amTramadol 50 mg uemqccYymbac43LHQDHykfb times daily as needed for ibbu6766Ocsgajb 2024 10:27amComplies with drug therapyLorazepam 0.5 mg tabletActive0.5MGPOThree times daily as needed for Rkmvvtb3283Wmguvpn 2024 10:27amComplies with drug therapyNaloxone (Narcan) 4 mg/actuation spray,non-sepaoszLdybzl3EXPIDVKJHFMRmqfll 2 to 3 minutes as needed for opioid zpzdaqgf2Djbzccx 2024 12:00amspray 1 dose into ONE nostril; alternate nostrils w each dose until help arrivesComplies with drug therapyTizanidine 4 mg sgisxfYbmxomutfwyp1ZPMGJyoyn daily as needed for muscle vtkieohvjd01Zpwpglu 2024 12:17pmOctober 2024 10:51amCelecoxib (Celebrex) 200 mg Capsule Zxkmqlbofnkx233REAHRqozvTxhjepg 2022 12:00amMarch 2023 10:40am Tramadol 50 mg fpgkowPidkksvsyfmz39ZKNGZvdft at bedtimeOctober 2022 12:00amMarch 2023 10:40amLorazepam 0.5 mg tabletDiscontinued0.5MGPOThree times daily as needed for AnxietyOctober 2022 12:00amMarch 2023 10:40amCelecoxib (Celebrex) 200 mg dzfahjtCkfqrabvnrjx095RKWDTftkk09Zeydh 2023 10:38amJuly 2023 10:59amLorazepam 0.5 mg tabletDiscontinued0.5MGPO Three times daily as needed for Xbzlmrf2198Txvvc 2023 10:39amApril 2023 1:21pmTramadol 50 mg macjgeVdwzeowkmpmm71APWNDfhvg at bsshiuc21891Rmpcs 2023 10:39amApril 2023 1:21pm2 tabs q8h prnTramadol 50 mg tablet Oblauozskafn38HTUGUhsoc times daily as needed for palx4658Gwmj 2023 9:36am April 02, 2024 10:59amAzithromycin 250 mg qrqgxbCbfpfzhcgsaa9HQ.JQVYECQ8Myam 2023 12:00amOctober 2023 10:40amFor 250 mg dose pack: take 500 mg today (day 1), then 250 mg for 4 days (days 2-5) POEscitalopram Oxalate (Lexapro) 10 mg gjouuiOknofu62WYSKOjric52Juqppusr 2023 1:00amComplies with drug therapyDoxycycline Hyclate 100 mg ueraflQpabxxoqjije132JJYGDdovs daily14 November 12, 2024 1:00amMay 2024 9:07amPrednisone 20 mg tablet Lbvcwfntpzxm16VMCGPtafj elkud97Ypkah 2023 12:00amMay 2023 8:42am Tramadol 50 mg qvgjzsTdndzermluic29TQVCSmlzx times daily as needed for fuhe9159 June 28, 2024 1:34pmNovember 2023 8:15amEstradiol 0.5 mg tabletActive 0.6TIIXNhtyv15Egsdjrt 2024 12:00amComplies with drug therapyTizanidine 4 mg dbvjxbBbpcibtsehdn9SPCNTrggv daily as neededOct2024 12:00amOctober 2024 12:17pm Vital Signs Vital Reading Result Reference Range Collection Date/Time Height 63 [in_i] May 09, 2025 9:58xzHrdrmc01.05 kgAugust 2024 9:27amHeart Rate96 /min 60-100August 2024 9:27amBP Doxjlump213 mm[Hg]100-140August 2024 9:27amBP Upahvqofu55 mm[Hg]60-100August 2024 9:27amBMI (Body Mass Index) 22.6 kg/k6Unjmeo 2024 9:01snVysspz70 [in_i]July 03, 2025 10:27am Whdiyx13.42 [facility] 2024 10:27amHeart Rate91 /myx50-261Iiurers 2024 10:27amBP Psmnhrhf296 mm[Hg]100-140October 2024 10:27amBP Uoetalkus63 mm[Hg]60-100October 2024 10:27amBMI (Body Mass Index)23.2 kg/k5Cdisfom 2024 10:27am Advance Directives Advance Directive Response Recorded Date/ Time Advance Directives No July 14, 2023 11:38am Insurance Providers Guarantor Chayito Subramanian Address [address] [place] [address] [place] [address] Info.Home Phone: Payer Policy Id Subscriber's Name Subscriber Id Effectiv e Date Expiration Date [facility] [id number] Júnior Subramanian [id number] Encounters Encounter Location(s) Arrival/Admit Date Discharge/Depart Date Provider(s) Departed Physician/Prov ider Office Visit -[facility] May 09, 2025 9:23am May 09, 2025 9:57am Kareen Castellanos MD Non-patient / Non-visit -[facility] Octob er 2024 10:55am Shey Sapp CMADeparted Physician/Provider [facility] 10:26amOctober 2024 10:54amMaemani Castellanos MD Recent Diagnosis Onset Date Admit Date Anxiety Unknown May 09 9:23am Cervical pain (neck) Unknown April 9:23am Screening mammogram for breast cancer Unknown July 03, 2025 10:26am Assessments Diagnosis Onset Date Resolution Status Admit Date Anxiety acuteAugust 2024 9:23amCervical pain (neck)acuteAugust 2024 9:23am Screening mammogram for breast canceracuteOctober 2024 10:26am Plan of Treatment Author Kareen Cast[facility]anos [facility]oredSeptember 2024 2:33pmReviewed OARRS. signed controlled substance contract earlier this year. Pt states it does not cause over sedation and she takes med tid every day. Chayito is no longer interested in decreasing amount of med. Denies issues with it further. . We started lexapro and she is making effors to wean down on amount of lorazepam. Declines referral to counseling or psychiatry. Followup in 3 months. UDS provided in January 2025. Pt states she takes her med tid daily. Reviewed [place]. Signed pain contract earlier this year. Stable on present dose and amount of tramadol. She takes between 2 - 4 tabs daily. UDS will be completed today earlier this yearPt understands it is a controlled substance. May benefit from adding tylenol during day to improve pain control. Hx of allergy to ibuprofen. As before, we discussed the concerns of a pain med w the lorazepam. Discussed referral to pain mgmt for her neck. Will continue to follow w Neurosurgery eval pending. Pt will followup in 3 months. Future Tests Future scheduled test information is unavailable Pending Tests Test Name Ordered Date Scheduled Date MM screening mammo BI w/CAD July 03, 2025 1 0:46am Future Visits Future appointment information is unavailable Referrals to Other Providers Referral information is unavailable Future Procedures Future procedure information is unavailable Future Medications Future medication information is unavailable Patient Instructions Patient instructions are unavailable
--- OUTSIDE RECORDS SUMMARY | 2025-07-03 14:00 | XMS_ITS | Encounter Summary ---
Author Organization [facility] Address [address] [place] [address] Care Team Providers Care Repair Service Clerk Name Role Phone Kareen Castellanos MD Primary Care Provider [phone] Reason for Visit * ReasonCommentsConsultPatient is here to consult for neck pain neck-down to left arm. Onset 1 year ago. Seen physical therapy and pain management. DDD. Encounter Details DateTypeDepartmentCare Team (Latest Contact Info)Imjsjqjednf16/15/2025 2:00 PM EDTConsult [facility] [address] [place] [address] Luciana Merchant, FINISH GRINDER [address] [place] [address] Cervical spondylosis (Primary Dx); Chronic neck pain Social History Tobacco UseTypesPacks/DayYears UsedDateSmoking Tobacco: FormerCigarettes0.523 09/19/1988 - 09/19/2011Smokeless Tobacco: Never Tobacco Cessation:Counseling Given: Not Answered Comments:I currently vape Alcohol UseStandard Drinks/WeekCommentsNot Currently0 (1 standard drink = 0.6 oz pure alcohol)Rarely drinkHumiliation, Afraid, Rape, and Kick questionnaireAnswer Date RecordedWithin the last year, have you been afraid of your partner or ex-partner?No07/03/2025Emotionally AbusedNot on file07/03/2025Physically Abused Not on file07/03/2025Sexually AbusedNot on file07/03/2025PHQ-2AnswerDate RecordedPatient Health Questionnaire-2 Bseoq148CommentsUnknown Sex and Gender InformationValueDate RecordedSex Assigned at BirthChoose not to qgjhzaqc64/21/2025 12:12 PM EDTLegal DfgZxpntb69/29/2022 9:59 PM EDTGender IdentityChoose not to frdvlimw82/21/2025 12:12 PM EDTSexual OrientationChoose not to dqtdyubf10/21/2025 12:12 PM EDTdocumented as of this encounter Last Filed Vital Signs Vital SignReadingTime TakenCommentsBlood Gdeiycca289/ 2:05 PM EDT Zsolm78775/15/2025 2:05 PM CXYDguvovegcbh97.6 ??C (97.8 ??F)07/03/2025 2:05 PM EDTRespiratory Zsqt0455 2:05 PM EDTOxygen Saturation--Inhaled Oxygen Concentration--Hbdzdf34 kg (130 lb)07/03/2025 2:05 PM IDEFboows102 cm (5' 3 ) 07/03/2025 2:05 PM EDTBody Mass Index23.031 2:05 PM EDTdocumented in this encounter Functional Status * BPAnswerDate of ExmexacuqjZqebgs816/8210/15/2025 2:05 PM Abby Braun MA * PulseAnswerDate of LgqpkburqoIsjkqx82841/15/2025 2:05 PM Abby Braun MA * Patient PositionAnswerDate of YevltwsrvyCuekodFudkxem35/15/2025 2:05 PM EDT Abby Denton MA * Fall RiskQuestionAnswerDate of AssessmentAuthorWorried about fallin 07/03/2025 2:11 PM Abby Braun MAOne or more falls in the last year:No 07/03/2025 2:11 PM Abby Braun MAFeels unsteady when walkin 07/03/2025 2:11 PM Abby Braun MA * BPAnswerDate of XqvkttdbsnBqjayp934/ 2:05 PM Abby Braun MA * TempAnswerDate of DpkljltbpvYoitzx41.81 2:05 PM Abby Braun MA * Temp srcAnswerDate of WntuyesnaqSspuvoVrmb02/15/2025 2:05 PM Abby Braun MA * PulseAnswerDate of RdookgqstcFttoho55383 2:05 PM Abby Braun MA * RespAnswerDate of PjiubtpguiZhnqms9407/15/2025 2:05 PM Abby Braun MA * Over the past 2 weeks, how often have you been bothered by any of the following problems?QuestionAnswerDate of AssessmentAuthorThoughts that you would be better off or hurting yourself in some wayNot at all07/03/2025 2:11 PM Abby Braun MAPatient Health Questionnaire-9 Rcqmp283 2:11 PM Abby Braun MATrouble falling or staying asleep, or sleeping too muchNot at all07/03/2025 2:11 PM Abby Braun MAFeeling tired or having little energyNot at all07/03/2025 2:11 PM Abby Braun MAPoor appetite or overeatingNot at all07/03/2025 2:11 PM Abby Braun MA Feeling bad about yourself - or that you are a failure or have let yourself or your family downNot at all07/03/2025 2:11 PM Abby Braun MATrouble concentrating on things, such as reading the newspaper or watching television Not at all07/03/2025 2:11 PM Abby Braun MAMoving or speaking so slowly that other people could have noticed? Or the opposite - being so fidgety or restless that you have been moving around a lot more than usual.Not at all 07/03/2025 2:11 PM Abby Braun MA * Over the past 2 weeks, how often have you been bothered by any of the following problems?QuestionAnswerDate of AssessmentAuthorLittle interest or pleasure in doing thingsNot at all07/03/2025 2:11 PM Abby Braun MA Feeling down, depressed, or hopelessNot at all07/03/2025 2:11 PM Abby Braun MAPatient Health Questionnaire-2 Qrnjq337 2:11 PM Abby Braun MA * BP LocationAnswerDate of AssessmentAuthorLeft arm07/03/2025 2:05 PM EDT Abby Denton MA * Modified Malnutrition Screen Tool (MST)QuestionAnswerDate of AssessmentAuthor Have you been eating poorly because of a decreased appetite?No07/03/2025 2:11 PM Abby Braun MAHave you recently lost weight without trying?No 07/03/2025 2:11 PM Abby Braun MA * Patient PositionAnswerDate of IoqfdsadhjKfsadsDnwrqvt35/15/2025 2:05 PM EDT Abby Denton MA documented as of this encounter Progress Notes * Luciana Merchant CNP - 07/03/2025 2:00 PM EDT NEUROSURGERY NOTE SUBJECTIVE: Chief complaint: Neck and arm pain. History of present illness: Consultation referred by [facility] pain management for neck and left shoulder pain. Notes that neck symptoms are more bothersome. Reports neck pain as well as pain that occurs at about the level of her bra into the left and extends up to her left occiput. This has been present for greater than 1 year without precipitating event and has been progressively worsening. No particular variation with time of day. Nothing seems to make it better. Worse with driving and elevation of the left arm. She does also report numbness of her left side of her neck and her left arm, mainly in what sounds like C8 distribution, and dropping objects with both hands, left side greater than right. She notes weakness in both arms as well, left side greater than right. No bowel or bladder changes or incontinence. No difficulty with falls or imbalance. Of note, she did have a previous ACDF C5-C6 years ago with Dr. Chung. She states that prior to that surgery, she was having neck pain and numbness of her entire left arm as well as dropping objects with her left arm. Her symptoms did transiently improve after surgery, then recurred. She states shewas subsequently diagnosed with thoracic outlet syndrome for which she also underwent surgery. Thisalso helped her symptoms, though only transiently. More recently, she saw another spine surgeon, Dr. Sanchez, who ordered EMG of her arms. This has not yet been completed, though [facility] does not intend to follow-up with Dr. Sanchez. She has done physical therapy, 8 or 9 sessions recently in [place]. This seemed to exacerbate her symptoms. She is currently seeing pain management. Has not had any recent injections. She did have injections prior to her neck surgery years ago and some injections after, neither of which were beneficial. Has tried multiple medications, including tizanidine, ibuprofen, Tylenol, tramadol, Celebrex, gabapentin. She has also tried using a TENS unit, heat, and stretching. She notes that stretching sometimes exacerbates her symptoms. 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 Review of systems: As in HPI. Medical History[1] Surgical History[2] Social History[3] Family History[4] OBJECTIVE: Medications: LORazepam tiZANidine traMADol Current Medications[5] Allergies: Allergies[6] Exam: Exam performed and reviewed, changes as below. Vitals reviewed: No intake/output data recorded. No intake/output data recorded. Constitutional: In no apparent distress. Cardiovascular: Heart sounds regular rate and rhythm without appreciable murmur. Chest: Lung sounds clear to auscultation bilaterally. Respirations regular and nonlabored. Extremities without edema. Skin warm and dry without pallor. Neuro: GCS 15/15. Attention and memory intact. No dysarthria or aphasia. Cranial Nerves: Conjugate gaze. PERRLA 3 mm. EOMI. No nystagmus. Facial sensation intact V1, V2, F4kryzeywpvuj. Facial expression symmetrical bilaterally. Hearing intact to conversation. Uvula midline and palate elevates symmetrically. Trapezii symmetrical bilaterally. Tongue midline. Coordination: Finger to nose testing without dysmetria bilaterally. Sensation: Intact to light touch C5-T1 and L2-S1 dermatomes bilaterally with exception of diminished sensation left medial upper arm. Musculoskeletal: Right-handed. Deltoid, biceps, triceps 4/5. Finger flexors and abductors 4+/5. Hipflexion, knee flexion, ankle dorsi and plantarflexion 4+/5. Muscle tone without hyper or hypotonicity. Muscle bulk appropriate for age. Independently ambulatory with steady gait. Cervical spine: Cervical paraspinal tenderness to palpation as well as tenderness over left scapula. No tenderness of the right scapula. Deep Tendon Reflexes: Triceps 2+ bilaterally. Biceps 2+ bilaterally. Brachioradialis 2+ bilaterally. Patellar 2+ bilaterally. Right cervical rotation intact, mildly decreased left. Cervical flexion intact. Labs: No visits with results within 30 Day(s) from this visit. Latest known visit with results is: No results found for any previous visit. Imaging: No results found for this or any previous visit from the past 360 days. Impression: Cervical spondylosis, history of ACDF C5-C6. Chronic neck pain. History of thoracic outlet syndrome status post decompression. Plan: Independently reviewed and interpreted following imaging: X-ray cervical spine AP and lateral 11/12/2022 show loss of the normal cervical lordosis. ACDF C5-C6with what appears to be solid bone fusion. MRI cervical spine 04/19/2025 with limitation of the normal cervical lordosis. Multilevel disc degeneration. Hardware artifact C5-C6. No canal or foraminal stenosis C2-C3. Mild canal stenosis without foraminal stenosis C3-C4. Moderate canal and mild left foraminal stenosis C4-C5. Mild canal stenosis C5-C6. Moderate canal stenosis C6-C7. No high-grade canal or foraminal stenosis C7-T1. Discussed with patient that I will review her imaging with the attending neurosurgeon. However, I am not certain that I see anything on my review of imaging today that would likely be a target for neurosurgical intervention that will explains her symptoms. She does certainly have bilateral upper extremity weakness and I do think that obtaining the EMG as ordered by others would likely be prudent.She states that she will have this done at [facility]. I did ask her to notify me once complete so that I can obtain the report. At moderate risk from additional medical intervention, including diagnostic tests or treatments, due to ongoing symptoms without clear diagnosis. New patient, multiple problems. Independent review of jycktmp-p-rxtt and MRI. Addendum 1423: Reviewed imaging and case discussed with Dr. Sue. Has some stenosis C4-C5 and C6-C7, though not clear that addressing this is likely to help her neck pain. Addressing C6-C7 might helpif she is having difficulty with her hand, but not her neck. She may also be a reasonable candidatefor spinal cord stimulation. Patient states that pain is at base of her neck between her shoulder blades. Notes weakness of leftarm, not so much her hand. She also notes lightheadedness and near syncope with flexion of her neck. [1] Past Medical History: Diagnosis Date Anxiety 2011 Extreme anxiety with stress Awareness under anesthesia 2005 I have had several surgeries and woke up durning each one. [facility] ([facility] 2005 Cervical cancer DDD (degenerative disc disease), cervical 2011 Having severe neck pain. Dizziness Dizziness 2024 Dizzy all the time when i move head certain positions Ovarian cyst 1987 Ovian cyst on left ovary. Removal of left ovary Spinal stenosis 2010 1st neck surgery with Dr. Chung Syncope 2024 Pass out from dizziness of my neck [2] Past Surgical History: Procedure Laterality Date ANTERIOR CERVICAL DISCECTOMY W/ FUSION 2005 Fused and plate C 5/6 Dr. Chung CERVICAL FUSION 2005 Dr Chung fused and plate at C 5-6 ENDOMETRIAL ABLATION 2004 HYSTERECTOMY 2010 Total hysterectomy OTHER SURGICAL HISTORY 2006 Hysterectomy SPINAL FUSION 2009 Fusion c 5-6 [3] Social History Tobacco Use Smoking status: Former Current packs/day: 0.00 Average packs/day: 0.5 packs/day for 23.0 years (11.5 ttl pk-yrs) Types: Cigarettes Start date: 09/19/1988 Quit date: 09/19/2011 Years since quittin.8 Smokeless tobacco: Never Tobacco comments: I currently vape Substance Use Topics Alcohol use: Not Currently Comment: Rarely drink Drug use: Never [4] Family History Problem Relation Name Age of Onset Anesthesia problems Father Oswald Rhodes Arthritis Father Oswald Rhodes Hearing loss Father Oswald Rhodes Heart disease Father Oswald Rhodes Hypertension Father Oswald Rhodes Stroke Father Oswald Rhodes [5] Current Outpatient Medications: LORazepam (Ativan) 0.5 mg tablet, Take 0.5 mg by mouth every 6 (six) hours if needed., Disp: , Rfl: tiZANidine (Zanaflex) 4 mg tablet, Take 4 mg by mouth every 6 (six) hours if needed., Disp: , Rfl: traMADol (Ultram) 50 mg tablet, Take 150 mg by mouth in the morning., Disp: , Rfl: [6] Allergies Allergen Reactions Fentanyl Hives Hydrocodone-Acetaminophen Hives Penicillins Hives documented in this encounter Plan of Treatment Not on file documented as of this encounter Visit Diagnoses Diagnosis Cervical spondylosis- Primary Cervical spondylosis without myelopathy Chronic neck pain Cervicalgia documented in this encounter Care Teams Team MemberRelationshipSpecialtyStart DateEnd Date Kareen Castellanos MD [address] [facility] #A PCP - General05/09/25documented as of this encounter
--- OUTSIDE RECORDS SUMMARY | 2025-07-11 11:13 | XMS_ITS | Encounter Summary ---
Author Organization [facility] Address [address] [place] [address] Care Team Providers Care Artisan Plasterer Name Role Phone Kareen Castellanos MD Primary Care Provider [phone] Encounter Details DateTypeDepartmentCare Team (Latest Contact Info)Pqtyocoahlk64/20/2025Telephone Neurosurgery [address] [place] [address] Luciana Merchant, UTILITY LOCATOR [address] [place] [address] Social History Tobacco UseTypesPacks/DayYears UsedDateSmoking Tobacco: FormerCigarettes0.523 09/19/1988 - 09/19/2011Smokeless Tobacco: Never Comments:I currently vape Alcohol UseStandard Drinks/WeekCommentsNot Currently0 (1 standard drink = 0.6 oz pure alcohol)Rarely drinkHumiliation, Afraid, Rape, and Kick questionnaireAnswer Date RecordedWithin the last year, have you been afraid of your partner or ex-partner?No07/03/2025Emotionally AbusedNot on file07/03/2025Physically Abused Not on file07/03/2025Sexually AbusedNot on file07/03/2025PHQ-2AnswerDate RecordedPatient Health Questionnaire-2 Ooson374CommentsUnknown Sex and Gender InformationValueDate RecordedSex Assigned at BirthChoose not to /21/2025 12:12 PM EDTLegal GriBredrh09/29/2022 9:59 PM EDTGender IdentityChoose not to /21/2025 12:12 PM EDTSexual OrientationChoose not to huulbdgg81/21/2025 12:12 PM EDTdocumented as of this encounter Miscellaneous Notes * Telephone Encounter - Luciana Merchant CNP - 07/08/2025 2:54 PM EDT Spoke with patient. Explained that I had reviewed her cervical spine imaging with Dr. Sue. She does have some stenosis below the level of her current fusion, though it is not clear that decompressing the stenosis would be likely to help her neck pain or her arm symptoms, particularly giventhat she has not had any lasting or substantial relief after her previous ACDF for thoracic outlet syndrome decompression. She states that the neck pain is bothersome. She also endorses lightheadedness and near syncope with flexion of her cervical spine. She notes weakness of both arms, primarily her left arm, though not so much weakness of her left hand. Notes that she had difficulty when going bow hunting this weekend due to arm weakness. She does have an EMG scheduled for 07/16/25 at [facility]--will obtain report once completed. I also discussed the possibility of spinal cord stimulation for her chronic neck pain. We briefly discussed how this works. I did discuss that this process is typically initiated by pain management. She states she does not have an upcoming appointment with pain management as her understanding aftertheir last visit was that they did not have anything else to offer. Explained that the pain management note that I had reviewed states that plan was to follow-up with her in clinic if no neurosurgical intervention was indicated, which is currently the case. I did encourage her to schedule a follow-up appointment with pain management. Will also fax them a copy of my note. * Telephone Encounter - Abby Denton MA - 07/08/2025 2:45 PM EDT Patient called back and was transferred to [place] at ext [phone] * Telephone Encounter - Luciana Merchant CNP - 07/08/2025 2:24 PM EDT Called patient to discuss imaging from recent office visit. Left message. Will try to call again tomorrow. documented in this encounter Plan of Treatment Not on file documented as of this encounter Visit Diagnoses Not on filedocumented in this encounter Care Teams Team MemberRelationshipSpecialtyStart DateEnd Date Kareen Castellanos MD [address] [place] [address] #A PCP - [facility]05/09/25documented as of this encounter
--- OUTSIDE RECORDS SUMMARY | 2025-07-11 11:13 | XMS_ITS | Clinical Summary ---
Author Organization [facility] Address [address] [place] [address] Care Team Providers Care Construction Plumber Name Role Phone Kareen Castellanos MD Primary Care Provider [phone] Allergies Active AllergyReactionsCriticalityNoted UyxtYmddhsahCfvyuvgmLicew51/19/2016 Hydrocodone-HfqkousrfqynoPoxsz74/19/7377KehaihfsjzfVxbkc79/09/2015 Medications MedicationSigDispense QuantityRefillsLast FilledStart DateEnd DateStatus traMADol (Ultram) 50 mg tablet Take 150 mg by mouth in the morning.5Active LORazepam (Ativan) 0.5 mg tablet Take 0.5 mg by mouth every 6 (six) hours if needed.Active tiZANidine (Zanaflex) 4 mg tablet Take 4 mg by mouth every 6 (six) hours if needed.5Active Encounters DateTypeDepartmentCare UjjyAooxrfbephg06/20/2025Telephone Neurosurgery [address] [place] [phone] Luciana Merchant CNP 07/03/2025 2:00 PM EDTConsult [facility] Surgery Clinic [address] [place] [phone] Luciana Merchant CNP Cervical spondylosis (Primary Dx); Chronic neck pain06/13/2025 12:05 AM EDT - 06/13/2025 11:59 PM EDTHospital Encounter [facility] Radiology External Films [address] [place] [phone] Discharge Disposition: Home or Self Care ()06/13/2025 - 06/13/2025 12:04 AM EDTHospital Encounter [facility] Radiology External Films [address] [place] [address] Discharge Disposition: Home or Self Care ()from Last 3 Months Family History Medical HistoryRelationNameCommentsAnesthesia problemsFatherWalter Moates ArthritisFatherWalter MoatesHearing lossFatherWalter MoatesHeart diseaseFather Oswald MoatesHypertensionFatherWalter MoatesStrokeFatherWalter MoatesRelation NameStatusCommentsFatherWalter MoatesAlive Social History Tobacco UseTypesPacks/DayYears UsedDateSmoking Tobacco: FormerCigarettes0.523 [...] file07/03/2025Sexually AbusedNot on file07/03/2025PHQ-2AnswerDate RecordedPatient Health Questionnaire-2 Uycjz468CommentsUnknown Sex and Gender InformationValueDate RecordedSex Assigned at BirthChoose not to nayaufbh53/21/2025 12:12 PM EDTLegal NtoQebjei14/29/2022 9:59 PM EDTGender IdentityChoose not to igxpwnwl63/21/2025 12:12 PM EDTSexual OrientationChoose not to jzyunzwx05/21/2025 12:12 PM EDT Last Filed Vital Signs Vital SignReadingTime TakenCommentsBlood Nvwpwsos766/8207/03/2025 2:05 PM EDT Vcovg11302/15/2025 2:05 PM PELKyzvoxhswhl48.6 ??C (97.8 ??F)07/03/2025 2:05 PM EDTRespiratory Ejau7557 2:05 PM EDTOxygen Saturation--Inhaled Oxygen Concentration--Xokxow57 kg (130 lb)07/03/2025 2:05 PM JREVecnyh742 cm (5' 3 ) 07/03/2025 2:05 PM EDTBody Mass Index23.031 2:05 PM EDT Plan of Treatment Health MaintenanceDue DateLast DoneCommentsCT Ldxlfgdsrvru60/01/1970Colonoscopy 1969Colorectal Cancer Lcbiqghwp29/01/1970FIT-DNA1969FIT1969 FOBT1969 1265Wtctapjcndcsy43/01/1970Hepatitis B Vaccines (1 of 3 - 19+ 3-dose series)1988Pap Smear1990Adult Aqwncet4212/19/1991Cervical Cancer Hhdmknglk40/01/2000HPV/Caghvk0412/19/19990519Gevmzcbea01/01/2010Zoster Vaccines (1 of 2)12/19/2019COVID-19 Vaccine ( season)05/20/871000/03/2021, 04/04/2021Influenza Vaccine (#1)/, 08/21/2010Depression Iwktsrcqj12HIB VaccinesAged OutNo longer eligible based on patient's age to complete this topicHPV VaccinesAged OutNo longer eligible based on patient's age to complete this topicIPV VaccinesAged OutNo longer eligible based on patient's age to complete this topicMeningococcal B VaccineAged OutNo longer eligible based on patient's age to complete this topicMeningococcal VaccineAged OutNo longer eligible based on patient's age to complete this topic Pneumococcal Vaccine: Pediatrics (0 to 5 Years) and At-Risk Patients (6 to 64 Years)Aged OutNo longer eligible based on patient's age to complete this topic Rotavirus VaccinesAged OutNo longer eligible based on patient's age to complete this topic Procedures Procedure NamePriorityDate/TimeAssociated DiagnosisCommentsXR TRANSFER OF OUTSIDE ASLNRLwdzyfj68/25/2025 12:05 AM EDT MR TRANSFER OF OUTSIDE BCCPUSnlnbhq77/25/2025 12:00 AM EDT from Last 3 Months Results * XR transfer of outside films (06/13/2025 12:05 AM EDT)Specimen (Source) Anatomical Location / LateralityCollection Method / VolumeCollection Time Received Time Narrative IMAGING - 06/13/2025 12:14 PM EDT This order has been auto-finalized and does not contain a result. Authorizing ProviderResult TypeResult StatusAlastair Sue MDIMG XR PROCEDURES Final ResultPerforming OrganizationAddressCity/State/ZIP CodePhone Number IMAGING * MR transfer of outside films (06/13/2025 12:00 AM EDT)Specimen (Source) Anatomical Location / LateralityCollection Method / VolumeCollection Time Received Time Narrative IMAGING - 06/13/2025 12:14 PM EDT This order has been auto-finalized and does not contain a result. Authorizing ProviderResult TypeResult StatusAlastair Sue MDIMG MRI PROCEDURES Final ResultPerforming OrganizationAddressCity/State/ZIP CodePhone Number IMAGING from Last 3 Months Insurance Care Teams Team MemberRelationshipSpecialtyStart DateEnd Kareen Castellanos MD [address] [facility]05/09/25
--- OUTSIDE RECORDS SUMMARY | 2025-07-11 11:13 | XMS_ITS | Clinical Summary ---
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 Name Role Phone Kareen Castellanos MD Primary Care Provider [phone] Allergies Active AllergyReactionsCriticalityNoted YcgeLrpqthrdJfpjpndgtrjLoioo35/09/2015 Medications MedicationSigDispense QuantityRefillsLast FilledStart DateEnd DateStatus LORazepam (ATIVAN) 0.5 mg tab Take by mouth three times daily as needed.Active coenzyme Q10 (CO Q-10) 100 mg cap Take 1 capsule by mouth once daily.ctive traZODone (DESYREL) 50 mg tablet Take 2 tablets by mouth daily at bedtime.ctive atenolol (TENORMIN) 25 mg tablet Take 1 tablet by mouth twice daily.07/31/2015ctive aspirin, enteric coated (ECOTRIN LOW STRENGTH) 81 mg EC tablet Take 1 tablet by mouth once daily.ctive nitroglycerin sublingual (NITROQUICK) 0.4 mg SL tablet Dissolve 1 tablet under the tongue as needed for Chest Pain. If no pain relief call 911. 1 Bottle of 25 ctive atorvastatin (LIPITOR) 10 mg tablet Take 1 tablet by mouth once daily. 90 tablet ctive Active Problems ProblemNoted DateDiagnosed EglaQcbrdxrogqmg25/12/2015Chest pain07/28/2015 Xpmkqzqokggi48/09/2015Tobacco abuse07/28/2015SOB (shortness of breath)07/28/2015 Family History Medical HistoryRelationCommentsHeartFatherAcute [place] @ 62RelationStatusComments Father Social History Tobacco UseTypesPacks/DayYears UsedDateSmoking Tobacco: Every DayCigarettes0.510 Alcohol UseStandard Drinks/WeekCommentsNo0 (1 standard drink = 0.6 oz pure alcohol)CommentsNoSex and Gender InformationValueDate RecordedSex Assigned at BirthNot on fileLegal WxnIbpryj34/04/2014 8:17 AM EDTGender Identity Not on fileSexual OrientationNot on fileOccupationIndustryJob Start DateJob End DateUnemployedNot on fileNot on fileNot on file Last Filed Vital Signs Vital SignReadingTime TakenCommentsBlood Fcxrgsge224/6309/02/2015 10:58 AM EST Mtyak299809/02/2015 10:58 AM ESTTemperature--Respiratory Mjgp752611/03/2014 10:58 AM ESTOxygen Cljfmqocjh394%09/02/2015 10:58 AM ESTInhaled Oxygen Concentration-- Mcroes17.6 kg (160 lb)09/02/2015 10:58 AM VDUGiitoe941.5 cm (5' 2 )09/02/2015 10:58 AM ESTBody Mass Index29.26111/03/2014 10:58 AM EST Plan of Treatment Health MaintenanceDue DateLast DoneCommentsAnxiety Dqinxfmbt73/01/1988Depression Aupdlcjej44/01/1988HIV Avismburw20/01/1988Hepatitis C Cgbchpnwg05/01/1988 DTaP,Tdap,Td Vaccine (1 - Tdap)1988Hepatitis B Vaccine (1 of 3 - 19+ 3- dose series)1988Cervical Cancer Irufblcrz83/01/1991Mammogram Screening 2009CT Jydmkblmlmxr55/01/2015Cologuard (FIT-DNA)2014Colonoscopy 2014Colorectal Cancer Ayetjboxt44/01/2015Diabetes Wliwhynwy86/01/2015Fecal Occult Blood2014Lipid Iyduxelzk30/01/1538Iaatknmokezwo59/01/2015 Pneumococcal Vaccine: 50+ (1 of 1 - PCV)12/19/2019Shingrix Vaccine (1 of 2) 12/19/2019Covid-19 Vaccine (1 - 2024- season)2025Influenza Vaccine (#1) 2025 Care Teams Team MemberRelationshipSpecialtyStart DateEnd Date Kareen Castellanos MD [address] [place] [address] PCP - GeneralFalyman school for boys Djojxaqk10/6/15
--- OUTSIDE RECORDS SUMMARY | 2025-07-11 11:14 | XMS_ITS | CCD ---
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 Name Role Phone KAREEN QUINTANILLA Primary Care Physician DR KAREEN QUINTANILLA Admitting Unavailable SOCORRO, DR KAREEN Gregg Primary Care Unavailable DR KAREEN QUINTANILLA Attending Unavailable JHONATAN, DR YOBANI De Souza Consulting Unavailable SOCORRO, DR KAREEN Gregg Consulting Unavailable Kareen Quintanilla Unavailable Asaad, Imad Unavailable MD Kareen Quintanilla Primary Care Provider MD Sweta Avalos Attending Provider BECCA XIONG Attending Unavailable BECCA XIONG Admitting Unavailable MD Kareen Quintanilla Primary Care Provider MD Becca Xiong II Attending Provider Asaad, Imad Admitting Unavailable Sweta Avalos Attending Unavailable Kareen Quintanilla Primary Care Unavailable Becca Xiong II Admitting UnavailBecca Corley II Attending UnavailKareen Ramirez Primary Care Unavailable Kareen Quintanilla MD Primary Care Provider Kareen Quintanilla MD Attending Provider [phone] Kareen Quintanilla MD Primary Care Provider Kareen Quintanilla MD Attending Provider [phone] Shey Sapp CMA Attending Provider Unavaila ble SIMON, ARIN Referring Unavailable SIMON, ARIN Referring Unavailable HEATHER ARIZA Attending Unavailable Allergies Allergy ClassificationReported Allergen(s)Allergy TypeDate of OnsetReaction(s) Facilitymetaxalone (3 sources)metaxalone; Translations: [metaxalone]Drug Kkpyucv20-05-2956Cdukpba ReactionPaulding County HospitalNSAIDs (3 sources)Ibuprofen; Translations: [ibuprofen]Drug Jeftvey81-69-4050Zhnodrl ReactionPaulding County HospitalPenicillins (antibiotic) (4 sources)Penicillin; Translations: [penicillin G]Drug Zlsznps87-35-5695Obuhkyc Riverview Health InstituteQuinolones (antibiotic) (3 sources)levoFLOXacin; Translations: [levofloxacin]Drug Ofihrac48-33-3377 Unknown ReactionPaulding County Hospital (6 sources)Penicillins; Translations: [penicillins]Drug aozkfcy51-11-5854IhunwUK [facility] (20 sources)Penicillin GDrug Qgdawhk40-61-0958Fytaowm, Unknown ReactionPaulding County Hospital (17 sources)IbuprofenDrug Nhdloou16-52-7185Rfiwrvf, Unknown ReactionPaulding County Hospital (7 sources)levoFLOXacinDrug AllergyUnkSouth County Hospital Agent Video Intelligence Other (7 sources)Skelaxin *MUSCULOSKELETAL THERAPY AGENTS*Propensity to adverse reactionsUnkBarnes-Jewish Hospital BlueSt[employer] Software Other (7 sources)Penicillin G Benzathine & ProcDrug allergyUnkSouth County Hospital Agent Video Intelligence Other (10 sources)levoFLOXacinDrug Hkzeghc67-40-9471Pwktsol [facility] (10 sources)metaxaloneDrug Jllkfus84-14-3788Aijhwfx ReactionPaulding County Hospital (3 sources)TriamcinoloneDrug Xiaqrnm35-65-9947IrscutwtRuhpihept Regional Medical Center (1 source)Acetaminophen / HYDROcodone; Translations: [HYDROCODONE-ACETAMINOPHEN] Drug Umrollp04-77-3186XnzmpvmflmParkview [facility] (1 source)fentaNYL; Translations: [FENTANYL]Drug Njpfkuc11-43-1935GrrwxvdjlhAultman [facility] Rep[facility] (1 source)ALLERGIES NOT ON FILE; Translations: [ALLERGIES NOT ON FILE]Propensity to adverse reactions (disorder)[facility] Medications Current Medications MedicationDrug Class(es)DatesSig (Normalized)Sig (Original)Acetaminophen / Codeine (2 sources)Opioid AgonistStart: 57-09-5855sdgq 1 tablet by mouth every six hours as needed for painTylenol with Codeine #4 See Instructions, as needed for pain, Refill(s) 0, 1 tab(s) Oral q6hr StartDate: 04/20/13 Status: Orderedescitalopram 10 mg oral tablet (5 sources)Serotonin Reuptake InhibitorStart: 33-46-7834ucip 1 tablet by mouth once dailyEscitalopram Oxalate (Lexapro) 10 mg tablet Active 10 MG PO Daily August 30, 2024 1:00am Complies with drug therapyestradiol 0.5 mg oral tablet (1 source)EstrogenStart: 63-56-8079ltpk 1 tablet by mouth once dailyEstradiol 0.5 mg tablet Active 0.5 MG PO Daily July 03, 2025 12:00am Complies with drug therapymetoprolol tartrate 50 mg oral tablet (4 sources)beta-Adrenergic BlockerStart: 71-40-3939aqap 1 tablet by mouth once dailyMetoprolol succinate 50 mg ER Tablet 50 mg, Oral, Daily, Refills(s) 0 Start Date: 05/15/14 Status: OrderedStart: 62-49-9719dynr 1 tablet by mouth once daily Metoprolol succinate 25 mg ER Tablet 25 mg, Oral, Daily, Refills(s) 0 Start Date: 05/15/14 Status: OrderedMultivitamins and Minerals (2 sources)Start: 95-49-5965Vykgkgaddrret and Minerals Refill(s) 0 Start Date: 05/15/14 Status: Orderednaloxone hydrochloride 40 mg/ml nasal spray (1 source)Opioid AntagonistStart: 56-47-6829Xkpcgjop (Narcan) 4 mg/actuation spray,non-aerosol Active 4 MG INTRANASAL every 2 to 3 minutes as needed for opioid overdose June 27, 2025 12:00am spray 1 dose into ONE nostril; alternate nostrils w each dose until help arrives Complies with drug therapy polyethylene glycol 3350 888295 mg / potassium chloride 2970 mg / sodium bicarbonate 6740 mg / sodium chloride 5860 mg / sodium sulfate 02479 mg powder for oral solution (5 sources)Osmotic LaxativeStart: 44-79-4346nzsq 236 g by mouth once daily Golytely 236 GM as directed Orally once daily for 1 days May, Active Completed/Discontinued Medications MedicationDrug Class(es)DatesSig (Normalized)Sig (Original)azithromycin 250 mg oral tablet (17 sources)Macrolide AntimicrobialStart: 03-02-2024 End: 08-85-3101Pythcdutftlt 250 mg tablet Discontinued 0 PO .COMPLEX March 02, 2024 12:00am June 28, 2024 10:40am For 250 mg dose pack: take 500 mg today (day 1), then 250 mg for 4 days (days 2-5) POStart: 03-02-2024 End: 96-97-8921Mfcvwiytckdq Discontinued 0 PO .COMPLEX March 02, 2024 12:00am June 28, 2024 10:40am For 250 mg dose pack: take 500 mg today (day 1), then 250 mg for 4 days (days 2-5) POStart: 43-20-2140Hcehvpswnwfy Active 0 PO .COMPLEX March 02, 2024 12:00am For 250 mg dose pack: take 500 mg today(day 1), then 250 mg for 4 days (days 2-5) POStart: 06-58-3832Altptxrwgcvl 250 MG as directed Orally 2 tabs po today, then 1 tab daily x 4 more days for 5 Nov, Activecelecoxib 200 mg oral capsule (20 sources)Nonsteroidal Anti-inflammatory DrugStart: 07-15-2023 End: 16-87-1605aqwn 1 capsule by mouth once dailyCelecoxib (Celebrex) 200 mg capsule Discontinued 200 MG PO Daily November 29, 2023 10:38am April 02, 2024 10:59amdoxycycline hyclate 100 mg oral tablet (5 sources)Tetracycline-class DrugStart: 11-12-2024 End: 21-87-0254bxtn 1 tablet by mouth twice dailyDoxycycline Hyclate 100 mg tablet Discontinued 100 MG PO Twice daily November 12, 2024 1:00am January 18, 2025 9:07amLORazepam 0.5 mg oral tablet (20 sources)BenzodiazepineStart: 07-15-2023 End: 00-55-9338ijfe 1 tablet by mouth three times daily as needed for anxiety Lorazepam 0.5 mg tablet Discontinued 0.5 MG PO Three times daily as needed for Anxiety 90 November 29, 2023 10:39am December 28, 2023 1:21pmStart: 07-01-2023 take 1 tablet by mouth three times daily as neededLORazepam 0.5 MG 1 tablet Orally three times daily, as needed Jun, ActiveStart: 91-24-3584nngg 1 tablet by mouth three times daily as neededLORazepam 0.5 MG 1 tablet Orally three times daily, as needed May, ActiveStart: 30-10-9591bwbc 1 tablet by mouth three times daily as neededLORazepam 0.5 MG 1 tablet Orally three times daily, as needed Apr, ActiveStart: 22-12-9947bodo 1 tablet by mouth three times daily as neededLORazepam 0.5 MG 1 tablet Orally three times daily, as needed Feb, ActiveStart: 05-74-6581ewmd 1 tablet by mouth three times daily as neededLORazepam 0.5 MG 1 tablet Orally three times daily, as needed Nov, ActiveStart: 56-49-1316jclw 1 tablet by mouth three times daily as neededLORazepam 0.5 MG 1 tablet Orally three times daily, as needed Oct, ActiveStart: 36-47-4154sovs 0.25 mg by mouth onceLORazepam 0.5 mg Tab 0.25 mg = 0.5 tab(s), Oral, Once, Refills(s) 0 Start Date: 04/20/13 Status: Ordered predniSONE 20 mg oral tablet (11 sources)Start: 01-13-2024 End: 46-68-3590tjli 1 tablet by mouth twice dailyPrednisone 20 mg tablet Discontinued 20 MG PO Twice daily January 13, 2024 12:00am February 17, 2024 8:42amsulfamethoxazole 800 mg / trimethoprim 160 mg oral tablet (2 sources)Dihydrofolate Reductase Inhibitor Antibacterial, Sulfonamide AntimicrobialStart: 02-13-2025 End: 25-88-4133hmft 1 tablet by mouth twice dailySulfamethoxazole-Trimethoprim 800-160 mg tablet Discontinued 1 TAB PO Twice daily February 132:00am April 03, 2025 10:16amtiZANidine 4 mg oral tablet (2 sources)Central alpha-2 Adrenergic AgonistStart: 06-27-2025 End: 59-68-2151pkbe 1 tablet by mouth twice daily as neededTizanidine 4 mg tablet Discontinued 4 MG PO Twice daily as needed for muscle spasticity June 27, 2025 12:17pm July 03, 2025 10:51amtraMADol hydrochloride 50 mg oral tablet (20 sources)Opioid AgonistStart: 01-03-2024 End: 86-52-0881zzgh 1 tablet by mouth three times daily as needed for pain Tramadol 50 mg tablet Discontinued 50 MG PO Three times daily as needed for pain 90 June 28, 2024 1:34pm July 29, 2024 8:15amStart: 12-28-2023 End: 89-23-5826osed 2 tablets by mouth every eight hours as neededTramadol Discontinued 100 MG PO Three times daily 42 December 28, 2023 1:20pm January 03, 2024 12:44pm 2 tabs q8h prnStart: 11-29-2023 End: 87-17-4867dumr 2 tablets by mouth every eight hours as needed for pain Tramadol 50 mg tablet Discontinued 100 MG PO Three times daily as needed for pain 42 December 28, 2023 1:20pm January 03, 2024 12:44pm 2 tabs q8h prnStart: 42-09-7478ozaHOChk HCl 50 mg TAKE 2 TABLETS BY MOUTH EVERY 8 HOURS NEEDED FOR 30 DAYS for 30 days Oct, ActiveStart: 39-41-7684iblXWJpt HCl 50 mg TAKE 2 TABLETS BY MOUTH EVERY 8 HOURS NEEDED FOR 30 DAYS for 30 days Sep, ActiveStart: 32-14-2111xunXOVpw HCl 50 mg TAKE 2 TABLETS BY MOUTH EVERY 8 HOURS NEEDED FOR 30 DAYS for 30 days Jul, ActiveStart: 07-15-2023 End: 91-65-1982yfgp 1 tablet by mouth once daily at bedtimeTramadol 50 mg tablet Discontinued 50 MG PO Daily at bedtime July 15, 2023 12:00am November 29, 2023 10:40amStart: 59-56-1822sroPOFml HCl 50 mg TAKE 2 TABLETS BY MOUTH EVERY 8 HOURS NEEDED FOR 30 DAYS for 30 days Jun, ActiveStart: 06-03-2023 traMADol HCl 50 mg TAKE 2 TABLETS BY MOUTH EVERY 8 HOURS NEEDED FOR 30 DAYS for 30 days May, ActiveStart: 85-17-4425oquBVSts HCl 50 mg TAKE 2 TABLETS BY MOUTH EVERY 8 HOURS NEEDED FOR 30 DAYS for 30 days Apr, ActiveStart: 25-00-6522tzvHRNmn HCl 50 mg TAKE 2 TABLETS BY MOUTH EVERY 8 HOURS NEEDED FOR 30 DAYS for 30 Feb, ActiveStart: 03-42-4271yndj 2 tablets by mouth every eight hours as neededtraMADol HCl 50 mg TAKE 2 TABLETS BY MOUTH EVERY 8 HOURS NEEDED for 30 days Nov, ActiveStart: 25-27-5544qctt 2 tablets by mouth every eight hours as neededtraMADol HCl 50 mg TAKE 2 TABLETS BY MOUTH EVERY 8 HOURS NEEDED for 30 days Oct, Active Problems Active Problems Problem ClassificationProblemDateDocumented DateEpisodic/ChronicAnxiety disorders (20 sources)Anxiety; Translations: [Anxiety disorder]Onset: ChronicChronic obstructive pulmonary disease and bronchiectasis (12 sources)Bronchitis; Translations: [Bronchitis, not specified as acute or chronic]43-99-0710TzwjypebZqfvpsogofazj symptoms and ill-defined conditions (13 sources)Genitourinary symptoms; Translations: [Unspecified symptoms and signs involving the genitourinary system]26-68-7712EhkembrxVgmynwfftlroe and screening for infectious disease (7 sources)Vaccination given; Translations: [Encounter for immunization]Episodic Joint disorders and dislocations; trauma-related (20 sources)Instability of joint of right knee; Translations: [Chronic instability of knee, right knee]74-88-9649CzqknjeWddmpcs and fatigue (8 sources)Fatigue; Translations: [Other fatigue]99-91-6920IyiugfioHxtktxbttwv chest pain (10 sources)Left sided chest pain; Translations: [Chest pain, unspecified] 36-59-5635WfmxznlfKtomwmusioetco (14 sources)Osteoarthritis of right knee joint; Translations: [Unilateral primary osteoarthritis, right knee]32-00-0905FhgaidhNglna aftercare (5 sources)Patient encounter status; Translations: [Other long term care social worker (current) drug therapy]17-69-8372IzgiwjmfElxxw aftercare (1 source)Other long term care social worker (current) drug therapy; Translations: [Long-term (current) use of other medications]77-14-9585MlwxccyrTmxrf circulatory disease (7 sources)Elevated blood-pressure reading without diagnosis of hypertension; Translations: [Elevated blood-pressure reading, without diagnosis of hypertension]EpisodicOther connective tissue disease (8 sources)Pes anserinus bursitis of right knee; Translations: [Other bursitis of knee, right knee]63-70-8072UhzxzryfTnuyx connective tissue disease (2 sources)Other bursitis of knee, right knee; Translations: [Pes anserinus tendinitis or bursitis]61-11-4410LbxwzpwwMfnew female genital disorders (7 sources)Dyspareunia; Translations: [Unspecified dyspareunia]ChronicOther lower respiratory disease (1 source)Dyspnea, unspecifiedEpisodicOther lower respiratory disease (1 source)Other abnormalities of breathingEpisodicOther lower respiratory disease (5 sources)Chronic cough; Translations: [Chronic cough]55-83-6221OlkzmbnnTsrqr nervous system disorders (15 sources)Chronic pain; Translations: [Other chronic pain]ChronicOther nervous system disorders (1 source)Other chronic painChronicOther non-traumatic joint disorders (7 sources)Arthralgia of the lower leg; Translations: [Pain in left knee] EpisodicOther non-traumatic joint disorders (20 sources)Pain in right knee; Translations: [Chronic pain of right knee]Onset: 005436-58-8185TvgokdxfOnatd nutritional; endocrine; and metabolic disorders (14 sources)Obese class I; Translations: [Body mass index (BMI) 31.0-31.9, adult]ChronicOther nutritional; endocrine; and metabolic disorders (7 sources)Body mass index 30+ - obesity; Translations: [Body mass index (BMI) 30.0-30.9, adult]ChronicOther nutritional; endocrine; and metabolic disorders (20 sources)Body mass index 25-29 - overweight; Translations: [Body mass index (BMI) 29.0-29.9, adult]EpisodicOther nutritional; endocrine; and metabolic disorders (7 sources)Abnormal weight gain; Translations: [Abnormal weight gain]Episodic Other screening for suspected conditions (not mental disorders or infectious disease) (4 sources)Encounter for screening mammogram for malignant neoplasm of breast; Translations: [Encounter for screening for malignant neoplasm of colon]Episodic Other skin disorders (11 sources)Skin lesion; Translations: [Disorder of the skin and subcutaneous tissue, unspecified]94-28-1781DcsvpecyInkpm skin disorders (4 sources)Disorder of the skin and subcutaneous tissue, unspecified; Translations: [Unspecified disorder of skin and subcutaneous tissue]12-30-2023 EpisodicOther upper respiratory disease (3 sources)Allergic rhinitis due to pollen; Translations: [Allergic rhinitis due to pollen]69-86-8735ZqibjcmQtkbw upper respiratory disease (1 source)Allergic rhinitis due to pollen; Translations: [Allergic rhinitis due to pollen]25-12-5478HrkuyxyTxnef upper respiratory infections (9 sources)Chronic sinusitis; Translations: [Chronic sinusitis, unspecified] 73-64-6770XjicnbuCmunfodj codes; unclassified (2 sources)Tobacco kuth42-06-4102GfdvtjggIhgxoky on above:Added secondary to social history documentation.Residual codes; unclassified (2 sources)Localized edema; Translations: [Localized edema]EpisodicResidual codes; unclassified (7 sources)Insomnia; Translations: [Insomnia, unspecified]EpisodicResidual codes; unclassified (5 sources)Localized edema; Translations: [Localized edema]EpisodicResidual codes; unclassified (5 sources)Memory impairment; Translations: [Other amnesia]07-79-6110Jilgcdtx Residual codes; unclassified (1 source)Other amnesia; Translations: [Memory loss]02-63-9745Bdcccrgi Spondylosis; intervertebral disc disorders; other back problems (1 source)Other cervical disc degeneration, unspecified cervical region; Translations: [OTH CERV DISC DEGENERATION UNS CERV]Onset: 12-20-0687Xgeumyl Spondylosis; intervertebral disc disorders; other back problems (20 sources)Backache; Translations: [Pain in thoracic spine]Onset: 11-12-2022 82-71-6620HbhvukpoKlgsiijfd-related disorders (2 sources)Tssyqm13-60-9572RziqmdyZaopecd on above:Added secondary to documentation in Social History.Unclassified (1 source)Encounter for screening for malignant neoplasm of colon; Translations: [Encounter for screening formalignant neoplasm of colon]Onset: 33-33-2217Mbbnmck tract infections (7 sources)Urinary tract infectious disease; Translations: [Urinary tract infection, site not specified]EpisodicViral infection (7 sources)Herpes zoster without complication; Translations: [Zoster without complications]Episodic Past or Other Problems Problem ClassificationProblemDateDocumented DateEpisodic/ChronicAcute bronchitis (7 sources)Acute bronchitis; Translations: [Acute bronchitis, unspecified]Onset: 66-65-2374PbxqatnbIxgocstl reactions (7 sources)Inflammatory dermatosis; Translations: [Dermatitis, unspecified] Onset: 67-49-6188UivrmyujCopyyus dysrhythmias (7 sources)Tachycardia; Translations: [Tachycardia, unspecified]Onset: 03-76-6149QtxwcrhoFveni skin disorders (7 sources)Alopecia; Translations: [Nonscarring hair loss, unspecified]Onset: 38-09-3869UggznjmcGpyib skin disorders (7 sources)Acne; Translations: [Acne, unspecified]Onset: 62-08-1129IhxlizkfGryhy upper respiratory infections (15 sources)Acute maxillary sinusitis, unspecified; Translations: [Acute pharyngitis]Onset: 10-92-3463OzahorymKyeflgwxxwhk (1 source)Exposure to 2019 novel coronavirus; Translations: [Contact with and (suspected) exposure to COVID19]Unclassified (2 sources)Mitral valve structure (body structure)64-32-9160Etpsegdfyunz (1 source)ConsultOnset: 07-03-2025 Results Test NameValueInterpretationReference NrarnVwvdeoxt40os 07-99-408382Ibtam with patient. Explained that I had reviewed her cervical spine imaging with Dr. Sue. She does have some stenosis below the level of her current fusion, though it is not clear that decompressing the stenosis would be likely to help her neck pain or her arm symptoms, particularly given that she has not had any lasting or [...] have an EMG scheduled for 07/16/25 at [facility]--will obtain report once completed. I also discussed the possibility of spinal cord stimulation for her chronic neck pain. We briefly discussed how this works. I did discuss that this process is typically initiated by pain management. She states she does not have an upcoming appointment with pain management as her understanding after their last visit was that they did not have anything else to offer. Explained that the pain management note that I had reviewed states that plan was to follow-up with her in clinic if no neurosurgical intervention was indicated, which is currently the case. I did encourage her to schedule a follow-up appointment with pain management. Will also fax them a copy of my note.[facility]36 Patient called back and was transferred to [place] at ext [phone]36Called patient to discuss imaging from recent office visit. Left message. Will try to call again tomorrow.[facility] Telephoneon [id number] Rayshawn Williamson 1970 F Date Provider Department Center 07/08/2025 HEATHER ZEPEDA [facility]O SURG None Family History Problem Relation Age of Onset Anesthesia problems Father Arthritis Father Hearing loss Father Heart disease Father Hypertension Father Stroke Father Family Status - Relation Status Age at Father AliveNoOhioHealth Grove [facility] HospitalConsulton 32-00-1064Uljmiei [id number] Rayshawn Williamson 1970 F Date Provider Department Center 07/03/2025 [facility]ER [facility]EDA [facility] [address] Family History Problem Relation Age of Onset Anesthesia problems Father Arthritis Father Hearing loss Father Heart disease Father Hypertension Father Stroke Father Family Status - Relation Status Age at Father Alive Level of Service:53526 [place] OFFICE/OUTPATIENT NEW MODERATE MDM 45 MINUTES Reason for Visit and Comments: Consult [Other] - Patient is here to consult for neck pain neck-down to left arm. Onset 1 year ago. Seen physical therapy and pain management. DDD. [facility] CenterBasophils Auto (Bld) [#/Vol]on 56-03-1018Ealnmkuoo (Bld) [#/Vol]0.0 10 3/uL0.0-0.1FFirelands Regional Medical CenterBasophils/100 WBC Auto (Bld)on 70-83-2261Kmsnssdsc/100 WBC (Bld)0.5 % 0.2-2.0[facility] HospitalEosinophils/100 WBC Auto (Bld)on 85-30-2358Hwnoheohtwt/100 WBC (Bld)0.9 %0.9-7.0[facility] Erythrocyte distribution width Auto (RBC) [Ratio]on 72-91-6928Uajtzxlubsb distribution width (RBC) [Ratio]12.4 %11.0-15.0[facility] Glomerular filtration rate (GFR) estimation in non- Americanon 02-12-2025 GFR/1.73 sq M.predicted among non-blacks MDRD (S/P/Bld) [Vol rate/Area] mL/min/{1.73_m2}>=60 mL/min/1.73m 2FFirelands Regional Medical CenterHematocrit Auto (Bld) [Volume fraction]on 39-35-5482Ahbrmzdqcd (Bld) [Volume fraction]40.1 %36.0-48.0[facility] HospitalHemoglobin [Mass/volume] in Bloodon 74-98-4870Izyvcdxsyl (Bld) [Mass/Vol]12.8 g/dL12.0-16.0[facility] HospitalLaboratory - Chemistry and Chemistry - challengeon 02-12-2025 Calcium [Mass/Vol]9.0 mg/dL8.5-10.1FFirelands Regional Medical CenterChloride [Moles/Vol]106 mmol/H98-110AhmgclawePaulding County HospitalCO2 [Moles/Vol]29.2 mmol/L21.0-32.0[facility] HospitalCreatinine [Mass/Vol]0.64 mg/dL 0.55-1.02Paul[facility] County HospitalFerritin [Mass/Vol]95.0 ng/mL8.0-252.0 [facility] HospitalGFR/1.73 sq M.predicted MDRD (S/P/Bld) [Vol rate/Area]mL/min/{1.73_m2}>=60 mL/min/1.73m 2FFirelands Regional Medical Center Glucose [Mass/Vol]96 mg/rL83-191UbwesrujdPaulding County HospitalPotassium [Moles/Vol]4.2 mmol/L3.5-5.1FAdena Regional Medical Centerodium [Moles/Vol] 145 mmol/N201-467TwuazmooePaulding County HospitalTSH Qn0.490 m[IU]/L0.358-3.740 [facility] HospitalUrea nitrogen [Mass/Vol]15.0 mg/dL7.0-18.0 [facility] HospitalUrea nitrogen/Creatinine [Mass ratio]23.4 mg/mg [facility] HospitalLaboratory - Hematology and Cell countson 11-09-4281Xgnqosda granulocytes/100 WBC (Bld)0.2 %0.0-0.5FFirelands Regional Medical CenterLeukocytes [#/volume] corrected for nucleated erythrocytes in Blood by Automated counon 83-15-7712XNJ corrected for nucl RBC Auto (Bld) [#/Vol]8.7 10 3/uL4.0-11.0[facility] HospitalLymphocytes Auto (Bld) [#/Vol]on 26-15-3275Sribnewsczs (Bld) [#/Vol]1.1 10 3/uLLow1.2-3.8 [facility] HospitalLymphocytes/100 WBC Auto (Bld)on 02-12-2025 Lymphocytes/100 WBC (Bld)12.5 %Low20.5-60.0[facility] HospitalMCH Auto (RBC) [Entitic mass]on 32-22-9597NTO (RBC) [Entitic mass]30.3 pg26.7-34.0 [facility] HospitalMCHC Auto (RBC) [Mass/Vol]on 64-06-5101KVDS (RBC) [Mass/Vol]31.9 g/dL29.9-35.2FFirelands Regional Medical CenterMCV Auto (RBC) [Entitic vol]on 30-50-8422YEZ (RBC) [Entitic vol]94.8 fL81.0-99.0[facility] HospitalMonocytes Auto (Bld) [#/Vol]on 42-84-6551Doxhbilti (Bld) [#/Vol]0.4 10 3/uL0.3-0.8[facility] HospitalMonocytes/100 WBC Auto (Bld)on 77-35-1541Gqmposvfv/100 WBC (Bld)4.4 %1.7-12.0[facility] HospitalNeutrophils Auto (Bld) [#/Vol]on 41-28-8418Rcradwhubga (Bld) [#/Vol]7.1 10 3/uLHigh1.4-6.5FFirelands Regional Medical CenterNeutrophils/100 WBC Auto (Bld)on 74-36-5875Xwljsxkpuiv/100 WBC (Bld)81.5 %High43.0-75.0[facility] HospitalNo Panel Informationon 84-19-7790Utxqqaugucr # (Auto)0.1 10 3/uL0.0-0.7FFirelands Regional Medical CenterImmature Granulocyte # (Auto) 0.02 10 3/uL0.00-0.03Paul[facility] HospitalPlatelet mean volume Auto (Bld) [Entitic vol]on 45-45-2333Rgcawkjd mean volume (Bld) [Entitic vol]9.7 fL 9.5-13.5FFirelands Regional Medical CenterPlatelets Auto (Bld) [#/Vol]on 98-26-2660Qmsnqtvhz (Bld) [#/Vol]276 10 3/bG538-233RvvhkuiniPaulding County HospitalRBC Auto (Bld) [#/Vol]on 26-97-9017RSK (Bld) [#/Vol]4.23 10 6/uL4.20-5.40 [facility] Centererum or plasma anion gap determinationon 21-87-2714Gnqek gap [Moles/Vol]14.0 mmol/LFFirelands Regional Medical CenterMR knee RT wo conon 84-84-8922ZX knee RT [place] [address] MRI Report Signed Patient: Rayshawn Williamson MR#: [id number] : 1970 Acct:[id number] Age/Sex: 53 / F ADM Date: 02/06/24 Loc: Room: Type: [facility] Attending Dr: Becca Xiong II, MD [...] Rich Falcon M.D.02/07/2024 11:06 AM Dictation Location: [place] [address] Transcribed By: [facility] 02/07/24 1106 Dictated By: Rich Falcon II, MD 02/07/24 1051 Signed By: 02/07/24 1106[facility] K[facility] Complete 4+ Views Right on 58-91-1474PD Knee Complete 4+ Views RightExam Date/Time: 01/19/2024 10:30 EDT Reason for Exam: [...] Ka,r in mGy = na DAP = naNorProtestant Deaconess HospitalXR Pelvis 1 or 2 Viewson 75-46-0183HI Pelvis 1 or 2 ViewsExam Date/Time: 01/19/2024 10:27 EDT Reason for Exam: [...] Ka,r in mGy = na DAP = naNormalBarberton Citizens HospitalConsent for Treatmenton 01-19-2024 Consent for [id number]#1.00TIFFNoRegency Hospital ToledoPhysician Orderon [id number] Order [id number]#1.00TIFSumma Health Barberton CampusXR CSPINE 2_3 VIEWSon 93-02-4404TY CSPINE 2_3 VIEWSEXAMINATION: XR CSPINE 2_3 VIEWS HISTORY: Neck pain [...] Electronically authenticated by: YOBANI ISRAEL Date: 2022-11-12 15:52[facility]XR TSPINE 3 VIEWSon 48-03-4174LV TSPINE 3 VIEWSEXAMINATION: XR TSPINE 3 VIEWS HISTORY: Pain in thoracic spine [...] Electronically authenticated by: YOBANI ISRAEL Date: 2022-11-12 15:49[facility] Vital Signs Date TimeVital SignValuePerforming KfzswrvuvSahtxnwk19-91-1909 10:27-0400Body ojazeq253.02 cmKareen Quintanilla MD Work Phone: [phone]54[facility]10-15-2025 10:27-0400 Body mass index (BMI) [Ratio]23.2 kg/n5HckplmKareen Quintanilla MD Work Phone: 1(226)[address]10-15-2025 10:27-0400 Body .42 kgKareen Quintanilla MD Work Phone: 1(296)[address]10-15-2025 10:27-0400 Diastolic blood jgebvdon38 mm[Hg]Kareen Quintanlila MD Work Phone: 1(478)[address]10-15-2025 10:27-0400 Heart rate91 /Mitch Quintanilla MD Work Phone: 1(672)[address]10-15-2025 10:27-0400 Systolic blood lymwznlb692 mm[Hg]Kareen Quintanilla MD Work Phone: 1(352)[address]08-21-2025 09:27-0400 Body .02 cmKareen Quintanilla MD Work Phone: 1(708)[address]08-21-2025 09:27-0400 Body mass index (BMI) [Ratio]22.6 kg/s9PhspylKraeen Quintanilla MD Work Phone: 1(477)[address]08-21-2025 09:27-0400 Body jzbjcy53.05 kgKareen Quintanilla MD Work Phone: 1(783)216[address]08-21-2025 09:27-0400 Diastolic blood jaubxvni34 mm[Hg]Kareen Quintanilla MD Work Phone: 1(235)9[address]08-21-2025 09:27-0400 Heart rate96 /Mitch Quintanilla MD Work Phone: [facility]08-21-2025 09:27-0400 Systolic blood mm[Hg]Kareen Quintanilla MD Work Phone: [facility]05-27-2025 13:47-0400 Body albozj809.02 cmPaul[facility]05-27-2025 13:47-0400Body mass index (BMI) [Ratio]23.1 kg/i8IaikifwgpPaulding County Hospital05-27-2025 13:47-0400Body eeexii61.19 [facility]05-27-2025 13:47-0400Diastolic blood expfbopq08 mm[Hg][facility] 02-12-2025 13:47-0400Heart lcjt420 /[facility] 02-12-2025 13:47-0400Systolic blood qtxjbavj763 mm[Hg][facility]05-02-2025 08:57-0400Body uwetbn338.02 cmPaul[facility] Hospital05-02-2025 08:57-0400Body mass index (BMI) [Ratio]23.2 kg/k8FocaiuctiPaulding County Hospital05-02-2025 08:57-0400Body fauxep46.42 [facility]05-02-2025 08:57-0400Diastolic blood osgmqcpp46 mm[Hg] [facility]05-02-2025 08:57-0400Heart rate90 /[facility]05-02-2025 08:57-0400Systolic blood vksnprqi502 mm[Hg] [facility]02-24-2025 11:11-0500Body bhadey929.02 cm [facility]02-24-2025 11:11-0500Body mass index (BMI) [Ratio]22.5 kg/f5HjybocgiePaulding County Hospital02-24-2025 11:11-0500Body mabrol70.71 [facility]02-24-2025 11:11-0500Diastolic blood dzvdovav79 mm[Hg][facility]02-24-2025 11:11-0500 Heart rate92 /[facility]02-24-2025 11:11-0500 Respiratory rate12 /[facility]02-24-2025 11:11-0500 SaO2% (BldA) [Mass fraction]97 %[facility]02-24-2025 11:11-0500Systolic blood tebwnxev319 mm[Hg][facility] 08-30-2024 10:54-0500Body kninvr438.02 cmPaulding County Hospital 08-30-2024 10:54-0500Body mass index (BMI) [Ratio]23 kg/i7KsoufaslkPaulding County Hospital12-12-2024 10:54-0500Body oelaqt70.96 kgPaulding County Hospital12-12-2024 10:54-0500Diastolic blood mm[Hg][facility]12-12-2024 10:54-0500Heart bhkc301 /[facility]12-12-2024 10:54-0500Systolic blood vlkpibum900 mm[Hg][facility]10-10-2024 10:41-0400Body ikwzsj678.02 cmPaulding County Hospital10-10-2024 10:41-0400Body mass index (BMI) [Ratio]23.4 kg/m2 [facility]10-10-2024 10:41-0400Body .98 kg [facility]10-10-2024 10:41-0400Diastolic blood erdodhfe69 mm[Hg][facility]10-10-2024 10:41-0400Heart vpoe475 /min [facility]10-10-2024 10:41-0400Respiratory rate14 /min [facility]10-10-2024 10:41-0669ImF5% (BldA) [Mass fraction]99 %[facility]10-10-2024 10:41-0400Systolic blood jhegsdsd661 mm[Hg][facility]07-16-2024 11:41-0400 Body hgoexr488.02 cm Kareen Socorro Work Phone: [facility]07-16-2024 11:41-0400 Body mass index (BMI) [Ratio]23.2 kg/m2MD Kareen Quintanilla Work Phone: [phone]07-16-2024 11:41-0400 Body iqjmxs75.42 kgMD Kareen Quintanilla Work Phone: [phone]07-16-2024 11:41-0400 Diastolic blood dceoeiej32 mm[Hg]MD Kareen Quintanilla Work Phone: 1(990)[address]07-16-2024 11:41-0400 Heart rate74 /minMD Kareen Quintanilla Work Phone: 1(458)13[address]07-16-2024 11:41-0400 SaO2% (BldA) [Mass fraction]98 %MD Kareen Quintanilla Work Phone: 1(754)[address]07-16-2024 11:41-0400 Systolic blood lsphnfse825 mm[Hg]MD Kareen Quintanilla Work Phone: 1(638)[address]06-14-2024 09:25-0400 Body fohtfg655.02 cmMD Kareen Quintanilla Work Phone: 1([phone])69[address]06-14-2024 09:25-0400 Body mass index (BMI) [Ratio]22.8 kg/m2MD Kareen Quintainlla Work Phone: [phone])713[address]06-14-2024 09:25-0400 Body jewxwcobptc47.5 [degF]MD Kareen Quintanilla Work Phone: 1(276)637[address]06-14-2024 09:25-0400 Body swbgoc80.51 kgMD Kareen Quintanilla Work Phone: 1(080)45151 [address]06-14-2024 09:25-0400 Diastolic blood mm[Hg]MD Kareen Quintanilla Work Phone: 1(107)[address]06-14-2024 09:25-0400 Heart rate94 /minMD Kareen Quintanilla Work Phone: 1(714)094-[address] [place], [place] 9803206-14-2024 09:25-0400 Systolic blood zvcugtaj427 mm[Hg]MD Kareen Quintanilla Work Phone: [facility]05-31-2024 08:40-0400 Body zevmer070.02 cmMD Kareen Quintanilla Work Phone: [phone]05-31-2024 08:40-0400 Body mass index (BMI) [Ratio]23 kg/m2MD Kareen Quintanilla Work Phone: 1(296)648-[address] [place], [place] 9803205-31-2024 08:40-0400 Body ihyuvp77 kgMD Kareen Quintanilla Work Phone: 1(602)[address]05-02-2024 11:13-0400 Body xqzees785.02 cmMD Kareen Quintanilla Work Phone: [phone])9[address]05-02-2024 11:13-0400 Body mass index (BMI) [Ratio]23 kg/m2MD Kareen Quintanilla Work Phone: [phone])80651 [address]05-02-2024 11:13-0400 Body gcampe33.96 kgMD Kareen Quintanilla Work Phone: [phone]04-26-2024 09:39-0400 Body lrauqr037.02 [facility]04-26-2024 09:39-0400Body mass index (BMI) [Ratio]23.2 kg/m6GfholqtcmPaulding County Hospital04-26-2024 09:39-0400Body yeqsxc59.42 kgPaulding County Hospital04-26-2024 09:39-0400Diastolic blood szbipvtd81 mm[Hg][facility] 01-13-2024 09:39-0400Heart dwoy459 /minPaulding County Hospital 01-13-2024 09:39-0400Systolic blood ymwrhcus378 mm[Hg][facility]04-12-2024 14:50-0400Body icsxof843.02 cmPaulding County Hospital04-12-2024 14:50-0400Body mass index (BMI) [Ratio]23.4 kg/e2OvocferqbPaulding County Hospital04-12-2024 14:50-0400Body uswxlf32.98 kgPaulding County Hospital04-12-2024 14:50-0400Diastolic blood rcsrgick73 mm[Hg] [facility]04-12-2024 14:50-0400Heart mpxb367 /min [facility]04-12-2024 14:50-0400Systolic blood oqodpkub300 mm[Hg][facility]10-27-2023 10:57-0400Diastolic blood mm[Hg]MD Kareen Quintanilla Work Phone: 1(197)315-[address] [place], [place] [address]10-27-2023 10:57-0400 Heart rate82 /minMD Kareen Quintanilla Work Phone: 1(490)028[address]10-27-2023 10:57-0400 Respiratory rate16 /minMD Kareen Quintanilla Work Phone: 1(467)94251 [address]10-27-2023 10:57-0400 SaO2% (BldA) [Mass fraction]100 %MD Kareen Quintanilla Work Phone: [phone])43751 [address]10-27-2023 10:57-0400 Systolic blood seqpofuq53 mm[Hg]MD Kareen Quintanilla Work Phone: 1(332)67[address]10-27-2023 09:20-0400 Body jonhjm043.02 cmMD Kareen Quintanilla Work Phone: 1(357)74451 [address]10-27-2023 09:20-0400 Body iwmguffjlxm31 [degF]MD Kareen Quintanilla Work Phone: 1([phone])06351 [address]10-27-2023 09:20-0400 Body .33 kgMD Kareen Quintanilla Work Phone: 1(642)535[address]08-25-2023 09:15-0400 Body cyeqje699.48 cmKareen Quintanilla Other [place] [employer] Other 08-25-2023 09:15-0400Body mass index (BMI) [Ratio] 23.23 kg/e9QanznaKareen Quintanilla Other [employer] Other 08-25-2023 09:15-0400Body drmeqs19.61 kgGladisdina Quintanilla Other [employer] Other 08-25-2023 09:15-0400Diastolic blood mm[Hg] Kareen Quintanilla Other [employer] Other 08-25-2023 09:15-0400Systolic blood ojgwafcs790 mm[Hg] Kareen Quintanilla Other [employer] Other 02-24-2023 11:30-0500Body hhgcbe730.48 cmKareen Quintanilla Other [employer] Other 02-24-2023 11:30-0500Body mass index (BMI) [Ratio] 23.41 kg/b5VidmjoKareen Quintanilla Other [employer] Other 02-24-2023 11:30-0500Body igeyjh40.06 kgGladismartinrenae Quintanilla Other [employer] Other 02-24-2023 11:30-0500Diastolic blood kmcrsegx88 mm[Hg] Kareen Quintanilla Other [employer] Other 02-24-2023 11:30-5836ZgW4% (BldA) [Mass fraction]98 % Kareen Quintanilla Other [employer] Other 02-24-2023 11:30-0500Systolic blood qyxxtaxq077 mm[Hg] Kareen Quintanilla Other [employer] Other Encounters Encounter DateEncounter TypeCare ProviderFacilityStart: 07-03-2025 End: 04-45-2055gqlbbhkjmwSJOSGOT [facility]: 07-03-2025 End: 12-74-8518amydskqffzTkuzws E Braun MD Work Phone: [facility] Work Phone: Start: 07-03-2025 End: 98-04-5608Yddqumh encounter procedureKareen Quintanilla MD-[facility] Work Phone: Start: 51-95-1239Gks-patient / Non-visitCatherine Sekou [facility] Work Phone: Start: 06-13-2025 End: 45-28-3245qomrlvmwzgBLAFFWYJOhioHealth Grove City Methodist Hospitaltart: 06-13-2025 End: 42-26-2316yxoscrfalcUJUEDTCOOhioHealth Grove City Methodist Hospitaltart: 05-09-2025 End: 17-53-4906pphajyoqlyBzwuen E Braun MD Work Phone: [facility] Work Phone: Start: 05-09-2025 End: 47-32-5337Zzabmpu encounter procedureKareen Quintanilla MD-[facility] Work Phone: Start: 02-12-2025 End: 86-97-5655dlqpvneitjXxhswmlgxOhioHealth [facility] Work Phone: Start: 02-12-2025 End: 56-24-7103Gtjfkrn encounter procedureFirbridgewatershay Physician GroupThe Jewish Hospital Work Phone: Start: 01-18-2025 End: 27-02-6941behynanhxrRupgzhazwOhioHealth Shelby Hospital Work Phone: Start: 01-18-2025 End: 30-65-7435Pyheets encounter procedureFirelands Physician Group-[facility] Work Phone: Start: 11-12-2024 End: 75-79-3358arizlkcfqgCsbpjouyhOhioHealth [facility] Hospital Work Phone: Start: 11-12-2024 End: 59-73-0968Pnmnifp encounter procedureOur Community Hospital [facility] Work Phone: Start: 45-90-2950Pdn-patient / Non-visitOur Community Hospital Physician [facility] Work Phone: Start: 06-28-2345Qtvpwij encounter statusUniversity Hospitals Cleveland Medical Centertart: 08-30-2024 End: 88-95-9461Aovimgw encounter procedureOur Community Hospital Physician [facility] Work Phone: Start: 06-28-2024 End: 85-70-7675veotmpswkuNqprhtgfm [facility] Work Phone: Start: 06-28-2024 End: 83-69-2413Skaizvh encounter procedureOur Community Hospital Physician [facility] Work Phone: Start: 04-03-2024 End: 16-13-6535zrzefucaqaQI Kareen Quintanilla Work Phone: [facility] Work Phone: Start: 04-03-2024 End: 64-00-7037Cavfnkq encounter procedureMD Kareen Quintanilla Work Phone: [facility] Work Phone: Start: 03-02-2024 End: 96-45-3825qymilqjbulSK Kareen Quintanilla Work Phone: [facility] Work Phone: Start: 03-02-2024 End: 92-66-7369Fodykpl encounter procedureMD Kareen Quintanilla Work Phone: [facility] Work Phone: Start: 02-17-2024 End: 21-49-0911ylxhcfwzewMT Marcia E Braun Work Phone: [facility] Work Phone: Start: 02-17-2024 End: 01-95-5484Equsfyc encounter procedureMD Kareen Quintanilla Work Phone: [facility] Work Phone: Start: 02-06-2024 End: 78-96-9828kijfdhwbsbCirvbi M Inga IIFacility:[facility] Centertart: 02-06-2024 End: 15-68-9964gcglyosghsDU Kareen Quintanilla Work Phone: [facility] Work Phone: Start: 02-06-2024 End: 61-99-3014Jcksqpj encounter procedureMD Kareen Quintanilla Work Phone: [facility] [place] Work Phone: Start: 01-19-2024 End: 93-14-0960sfxwdvyzihFEDQPH CARLISLEFacility:[facility]ENTERtart: 01-19-2024 End: 68-47-2820Kdafxsz encounter procedureMD Beltrania Socorro Work Phone: [facility] [place] Work Phone: Start: 01-19-2024 End: 81-19-6629Gcoeyow encounter procedureROBERT INGA [facility] Start: 01-13-2024 End: 52-59-2680qtqicztcboLhulvanokOhioHealth Shelby Hospital Work Phone: Start: 01-13-2024 End: 64-39-4321Anoaxbp encounter procedureFirelands Physician Group-[facility] Work Phone: Start: 12-30-2023 End: 92-51-2285ixlvtajvmcQbbqipvplOhioHealth [facility] Hospital Work Phone: Start: 12-30-2023 End: 01-03-3208Knqnrzs encounter procedureFirelands Physician Group-[facility] Work Phone: Start: 83-46-5654Vye-patient / Non-visitOur Community Hospital Physician [facility] Work Phone: Start: 10-28-2023 End: 91-12-2647wdhxlaxciiNjlcrr Braun Other [facility] [employer] Other Start: 56-15-3071Pbqxxstrr encounterMarcia Julia [facility] Medical ClinicStart: 09-28-2023 End: 66-30-7911rwsenhsqndIlywnb Quintanilla Other [facility] [employer] Other Start: 72-69-5941Qtpmorytz encounterMarcia Julia [facility] Medical ClinicStart: 08-01-2023 End: 12-98-8435nxdeydpcndQxnsdz Braun Other [facility] [employer] Other Start: 53-47-5601Uwrsiujfx encounterMarcia Julia [facility] Medical ClinicStart: 07-15-2023 End: 45-57-1930xwjnqttamtPdxd AsaadFacility:[facility] Start: 07-15-2023 End: 77-43-1420Rswottleu to same day surgery centerMD Kareen Quintanilla Work Phone: [facility] Work Phone: Start: 07-15-2023 End: 83-99-6526vmbulqujayYB Marcia E Braun Work Phone: [facility] Work Phone: Start: 07-01-2023 End: 45-44-3525xflwgylknkSdydjp Braun Other [facility] [employer] Other Start: 12-76-0914Afpetyhun encounterMarcirenae Henderson Medical ClinicStart: 06-03-2023 End: 45-57-1954reatdgafekEtdi Asaad Other [employer] Other Start: 38-81-4043Uxlwuvfze encounterImad AsaadFPG Referral CoordinatorStart: 05-13-2023 End: 45-87-7735zpzsxzmivcUfsygs Quintanilla Other [employer] Other Start: 16-15-3927Wkyyiz outpatient visit 15 minutes Kareen SocorroFAMG [facility] ClinicStart: 05-05-2023 End: 97-68-7859bwdiuryxwzNgvjrx Quintanilla Other [employer] Other Start: 43-42-7474Mdtmzdjyh encounterMarcia BraunG [facility] ClinicStart: 03-09-2023 End: 06-82-6193ozdcixigvbTrrvfa Quintanilla Other [employer] Other Start: 10-72-0263Ubwjulzje encounterMarcia BraunFAMG [facility] ClinicStart: 12-16-2022 End: 86-59-6283peddslquwkEhfmih Quintanilla Other [employer] Other Start: 43-81-1093Plegwxznh encounterMarcia BraunFPG Referral CoordinatorStart: 11-16-2022 End: 18-11-8404xvioiuxvvpAqspel Quintanilla Other [employer] Other Start: 51-69-0931Eipzjrepw encounterMarcia BraunFPG [facility] ClinicStart: 11-12-2022 End: 17-29-8951frstasjgxiBC KAREEN QUINTANILLAFacility:S0Nwhgp: 72-33-8532Esnbds outpatient visit 15 minutesMarcia BraunFPG [facility] ClinicStart: 11-12-2022 Telephone encounterMarcia BraunFPG [facility] ClinicStart: 11-10-2022 End: 91-49-9318xgavzxidclCqedxe Quintanilla Other [employer] Other Start: 45-45-3627Uhvhplerc encounterKareen [facility] Centertart: 45-03-4187Goufy health examinationKareen Quintanilla Other [facility] [employer] Other Start: 05-27-2022 End: 82-32-7544Hzsyxqz encounter procedureKAREEN QUINTANILLA [facility] Procedures DateProcedureProcedure DetailPerforming ClinicianStart: 63-35-2929MPO of right kneeMD Kareen Quintanilla Work Phone: Start: 11-61-3627Xdaprtraw colonoscopyMD Kareen Quintanilla Work Phone: HysterectomyKAREEN QUINTANILLA neck surgeryKAREEN QUINTANILLA rib surgeryKAREEN QUINTANILLA Screening for malignant neoplasm of breastKareen Quintanilla Other Plan of Treatment DateCare ActivityDetailAuthorStart: 35-99-9717Akyougo referralTr[facility] Work Phone: Start: 10-62-8208JD Knee - right WO [facility] Hospitaltart: 91-34-6064EOG of right kneeMR knee RT wo con [facility] Centertart: 96-81-2357Wfwhvws referralTrinity Health System [facility] Work Phone: Start: 29-84-9434VpurfkpzbPaulding County Hospital Comprehensive metabolic 2000 panel - Serum or PlasmaPaulding County HospitalEKG 12 channel panelPaulding County HospitalMG Breast - bilateral ScreeningPaulding County HospitalMR Knee - right WO contrastPaulding County HospitalPatient referralTrinity Health System [facility] Work Phone: XR Cervical spine 5 ViewsPaulding County HospitalXR Chest 2 [facility]XR Chest 2 [facility]XR Chest 2 [facility] HospitalXR Knee - right 4 [facility] HospitalXR Pelvis 1 or 2 [facility] HospitalXR Sinuses GE 3 [facility] Payers DatePayer CategoryPayerPolicy [id number] Social History DateTypeDetailFacilityTobaccoCurrent, Cigarettes, 10 per day.Kettering HealthTobacco smoking statusNo Smoking Status [facility]ex Assigned At [facility] Centertart: 07-15-2023 End: 45-61-4202Qxjqtit smoking status NHISSmoker (finding)[facility] Centertart: 71-22-4158Oxa Assigned At [facility] Westtart: 11-12-2024 End: 87-56-6186FewXykyyt (finding)[facility] Centertart: 05-62-4469Ccifybz smoking status NHISSmokes tobacco daily (finding)[facility] HospitalNEGATED: Highlighted rowWyandot Memorial Hospital Goals DatePatient GoalDesired Activity/State Clinical Notes 11-12-2022 to 07-03-2025 Note Date & MytrRysoOgnacqut10-40-9313 NoteNEUROSURGERY NOTE SUBJECTIVE: Chief complaint: Neck and arm pain. History of present illness: Consultation [facility] by [facility] for neck and left [...] improve after surgery, then recurred. She states she was subsequently diagnosed with thoracic outlet syndrome for which she also underwent surgery. This also helped her symptoms, though only transiently. More recently, she saw another spine surgeon, Dr. Sanchez, who ordered EMG of her arms. This has not yet been completed, though states does not intend to follow-up with Dr. Sanchez. She has done physical therapy, 8 or 9 sessions recently in [place]. This seemed to exacerbate her symptoms. 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 Facial sensation intact V1, V2, V3 bilaterally. Facial expression symmetrical bilaterally. Hearing intact to conversation. Uvula midline and palate elevates symmetrically. Trapezii symmetrical bilaterally. Tongue midline. Coordination: Finger to nose testing without dysmetria bilaterally. Sensation: Intact to light touch C5-T1 and L2-S1 dermatomes bilaterally with exception of diminished sensation left medial upper arm. Musculoskeletal: Right-handed. Deltoid, biceps, triceps 4/5. Finger flexors and abductors 4+/5. Hip flexion, knee flexion, ankle dorsi and plantarflexion 4+/5. [...] loss of the normal cervical lordosis. ACDF C5-C6 with what appears to be solid bone fusion. MRI cervical spine 04/19/2025 with limitation of the normal cervical lordosis. Multilevel disc degeneration. Hardware artifact C5-C6. No canal or foraminal stenosis C2-C3. Mild canal stenosis without foraminal stenosis C3-C (more content not included)...[facility]08-21-2025 Evaluation note* Diagnosis Onset Date Resolution Status Admit Date Anxiety acuteAugust 2024 9:23amCervical pain (neck)acuteAugust 2024 9:23am Screening mammogram for breast canceracuteOctober 2024 10:26am [facility] Work Phone: 1(943) 640-615005-27-2025 Evaluation note* Diagnosis Onset Date Resolution Status Admit Date Chronic cough acuteMay 2024 1:44pmFatigueacuteMay 2024 1:44pm [facility] Work Phone: 1(745) 952-343105-02-2025 Evaluation note* Diagnosis Onset Date Resolution Status Admit Date Allergic rhinitis due to pollen acuteMay 2024 8:54amAnxietyacuteMay 2024 8:54amCervical pain (neck) acuteMay 2024 8:54amChronic coughacuteMay 2024 1:44pmFatigueacuteMay 2024 1:44pm [facility] Work Phone: 1(318) 892-525402-24-2025 Evaluation note* Diagnosis Onset Date Resolution Status Admit Date Bronchitis acuteFebruary 2024 11:08amAnxietyacuteMay 2024 8:54amCervical pain (neck)acuteMay 2024 8:54amChronic pain of right kneeacuteMay 2024 8:54am [facility] Work Phone: 1(581) 269-470012-12-2024 Evaluation note* Diagnosis Onset Date Resolution Status Admit Date Anxiety acuteDecember 2023 10:53amCervical pain (neck)acuteDecember 2023 10:53amChronic pain of right kneeacuteDecember 2023 10:53amDysuriaacute August 30, 2024 10:53amFatigueacuteDecember 2023 10:53amMedication managementacuteDecember 2023 10:53amMemory changesacuteDecember 2023 10:53amBronchitisacuteFebruary 2024 11:08[facility] Work Phone: 1(700) [phone] Procedure notePaulding County Hospital08-25-2023 Evaluation note* Encounter Date Diagnosis Assessment Notes Treatment Notes Treatment Clinical Notes Apr, Acute coccygeal pain (ICD-10 - M 53.3) Check xray Apr,Thoracic spine pain (ICD-10 - M54.6)Eval xray for thoracic spine dysfunction Apr,yspnea, unspecified (ICD-10 - R06.00)Monitor w CXR, consider pulm referral based on her exposures to fumes with welding Apr,Other abnormalities of breathing (ICD-10 - R06.89) Apr,Screening mammogram for breast cancer (ICD-10 - Z12.31) Apr,Screening for colon cancer (ICD-10 - Z12.11)Pt agrees to GI referral for screening c-scope. Grandparent had colon cancer. [employer] Other 02-28-2023 Evaluation note* Encounter Date Diagnosis Assessment Notes Treatment Notes Treatment Clinical Notes Oct, Acute non-recurrent maxillary si nusitis (ICD-10 - J01.00) [facility] Other 02-28-2023 Evaluation note* Encounter Date Diagnosis Assessment Notes Treatment Notes Treatment Clinical Notes Oct, Other chronic pain (ICD-10 - G89 .29) Oct,ain in thoracic spine (ICD-10 - M54.6) Oct,ervical pain (neck) (ICD-10 - M54.2) [facility] Other 02-24-2023 Evaluation note* Encounter Date Diagnosis Assessment Notes Treatment Notes Treatment Clinical Notes Oct, Thoracic spine pain (ICD-10 - M5 4.6) Oct,ervical pain (neck) (ICD-10 - M54.2) [facility] Other 02-24-2023 Evaluation note* Encounter Date Diagnosis Assessment Notes Treatment Notes Treatment Clinical Notes Oct, Thoracic spine pain (ICD-10 - M5 4.6) Chronic problem that has worsened. Will check with xray. Oct,ervical pain (neck) (ICD-10 - M54.2)increased pain as described. Check imaging and review previous reports. [facility] [employer] Other Evaluation + Plan note No data available for this section [facility] noteNo InformationNortSt. Mary Rehabilitation Hospital [employer] Other Evaluation noteNo assessment information available [facility] Work Phone: Evaluation note* Diagnosis Onset Date Resolution Status Anxiety acuteChronic pain of right kneeacuteSkin lesionacute [facility] Work Phone: Evaluation note* Diagnosis Onset Date Resolution Status Anxiety acuteChronic pain of right kneeacuteSkin lesionacuteChronic pain of right knee acuteThoracic back painacuteInternal derangement of kneeacutePrimary osteoarthritis of right kneeacuteRecurrent right knee instabilityacuteRight knee painacute [facility] Work Phone: Evaluation note* Diagnosis Onset Date Resolution Status Anxiety acuteChronic pain of right kneeacuteSkin lesionacuteChronic pain of right knee acuteThoracic back painacuteInternal derangement of kneeacutePrimary osteoarthritis of right kneeacuteRecurrent right knee instabilityacuteRight knee painacutePes anserinus bursitis of right kneeacuteBronchitisacuteLeft-sided chest painacute [facility] Work Phone: Evaluation note* Diagnosis Onset Date Resolution Status Chronic pain of right knee acuteThoracic back painacuteInternal derangement of kneeacutePrimary osteoarthritis of right kneeacuteRecurrent right knee instabilityacuteRight knee painacutePes anserinus bursitis of right kneeacuteBronchitisacuteLeft-sided chest painacute [facility] Work Phone: History and physical note Author Sweta Avalos [facility] July 15, 2023 10:09amNote Date/TimeOctober 2022 10:09[place] [address] Gastroenterology H&P Signed Patient: Rayshawn Williamson MR#: [id number] : 1970 Acct:[id number] Age/Sex: 52 / F Adm Date: 3 Loc: Room: Type: [facility] Attending Dr: Sweta Avalos MD Copies to: MD Kareen Patten MD~ Date of Service: 07/15/2023 HISTORY & PHYSICAL: Patient's history with special attention to the cardiovascular, pulmonary systems and the current problem was reviewed with the patient immediately prior to the procedure. Present medications and doses reviewed in the EMR. Allergies and pertinent laboratory tests were also re viewedat this time in the EMR. The physical [...] Avalos M.D. Documented By: Sweta Avalos MD 07/15/231008 Signed By: <Electronically signed by Sweta Avalos MD> 07/15/231008 [facility] Work Phone: History general Narrative - Reported* Type Description Date Medical History anxiety [facility] Other History general Narrative - Reported* Type Description Date Medical History anxiety Surgical HistoryENDOMETRIAL ABLATIONSurgical HistoryCYSTECTOMY- PARTIALSurgical HistoryHYSTERECTOMYSurgical HistorySPINAL FUSIONSurgical HistoryBACK SURGERY Hospitalization HistorySEE SURGICAL HX [facility] [employer] Other Hospital Discharge instructions No data available for this section [facility] Additional Instructions DISCHARGE INSTRUCTIONS FOR [...] years. -Follow up with PCP. -Office number [phone]. [facility] Work Phone: Progress note No data available for this section [facility] HealthReason for referral (narrative)No reason for referral information availableTrinity [facility] Work Phone: Summary Purpose Family History No Family History Records Found Relationship Condition Age at Onset Recorded Date/T zhao grandparent Malignant neoplasm of colon Unknown Not SpecifiedSecondary adenocarcinoma of lymph nodeUnknownfatherMyocardial infarctionUnknownGastrointestinal hemorrhageUnknown Relationship Condition Age at Onset Recorded Date/T zhao grandparent Malignant neoplasm of colon Unknown motherSecondary adenocarcinoma of lymph nodeUnknownfatherMyocardial infarction UnknownGastrointestinal hemorrhageUnknown Advance Directives No Advanced Directives Records Found Advance Directive Response Recorded Date/ Time Advance Directives No July 14, 2023 11:38am Advance Directive Response Recorded Date/ Time Advance Directives No July 14, 2023 10:38am Reason for Referral Reason screening colonoscop y Diagnosis 1 Screening for colon cancer (Z12.11) Referral Organization [facility] [employer] Referring Provider First Name Kareen Referring Provider Last Name Socorro Referring Provider Specialty [facility] Referred Organization [facility] Referred Address [address],[address] Referred Provider Specialty Gastroentero logy Referral Priority Routine Reason *FU 12/07 CALL See phone note, Last OV note and xrays. thanks Diagnosis 1 Other chronic pain ( G89.29) Referral Organization [facility] [employer] Referring Provider First Name Kareen Referring Provider Last Name Socorro Referring Provider Specialty [facility] [place] Referred Organization [facility] Referred Address [address], [place],[address] Referred Provider Specialty Pain Medicin e Referral Priority Routine General Notes Melodie Tate 10:07:41 AM >RECEIVED TODAY Meldoie Tate 11/19/2022 10:11:10 AM >ATTACHMENTS MADE, NOTES LOCKED, REFERRAL FAXED Melodie Tate 11/29/2022 08:38:20 AM >faxed first attempt letter Melodie Tate 11/30/2022 07:48:51 AM >received fax back that pt was called twice, and has not returned calls. will follow up with patient Melodie Tate 11/30/2022 02:54:09 PM >CALLED AND LEFT DETAILED MESSAGE TO SEE IF STILL NEEDIING REFERRALClinical NotesDR. MALATHI CHOI p: [id number] f: [phone] Chief Complaint and Reason for Visit Chief Complaint Screening Chief Complaint Amb Documentation medication review Chief Complaint Amb Documentation medication review neck/back painReason for VisitAnxiety Chronic pain of right knee Skin lesion Chief Complaint Amb Documentation medication review neck/back pain CONSULT DR KAREEN QUINTANILLA RT KNEE PAIN,NX M25.56Reason for VisitAnxiety Chronic pain of right knee Skin lesion Chronic pain of right knee Thoracic back pain Internal derangement of knee Primary osteoarthritis of right knee Recurrent right knee instability Right knee pain Chief Complaint Amb Documentation medication review neck/back pain CONSULT DR KAREEN QUINTANILLA RT KNEE PAIN,NX M25.56 [facility] [place] for VisitAnxiety Chronic pain of right knee Skin lesion Chronic pain of right knee Thoracic back pain Internal derangement of knee Primary osteoarthritis of right knee Recurrent right knee instability Right knee pain Chief Complaint medication review neck/back pain CONSULT DR KAREEN QUINTANILLA RT KNEE PAIN,NX M25.56 MRI RESULTS [facility] cough, feverReason for VisitAnxiety Chronic pain of right knee Skin lesion Chronic pain of right knee Thoracic back pain Internal derangement of knee Primary osteoarthritis of right knee Recurrent right knee instability Right knee pain Pes anserinus bursitis of right knee Bronchitis Left-sided chest pain Chief Complaint neck/back pain CONSULT DR KAREEN QUINTANILLA RT KNEE PAIN,NX M25.56 MRI RESULTS [facility] cough, fever medication checkReason for VisitChronic pain of right knee Thoracic back pain [...] m Fatigue February 12, 2025 1:44p m Chief Complaint Admit Date Fatigue, congestion, weak February 12, 2025 1:44pm 3 month f/u, lvm 04/16 km May 09 9:23am Reason for Visit Admit Date Chronic cough February 12, 2025 1:44p m Fatigue February 12, 2025 1:44p m Chief Complaint Admit Date 3 month f/u, lvm /29 km May 09 9:23am Amb Documentation June 27, 2025 10 :55am R Ear Popping July 03, 2025 1 0:26am Reason for Visit Admit Date Anxiety May 09, 2025 9: 23am Cervical pain (neck) May 09, 2025 9 :23am Screening mammogram for breast cancer O[facility] tober 2024 10:26am Additional Source Comments Patient Care team informatio [...] Active Start: January 19, 2024 End: January 18monroe Xiong II, MDAttending ProviderActiveStart: January 19, 2024 End: January 19, 2024 Team Status: Inactive Member Role Status Linda Quintanilla MD Primary Care Provider Active Start: February 06, 2024 End: February 05monroe Xiong II, MDAttending ProviderActiveStart: February 06, 2024 End: February 06, 2024 Team Status: Inactive Member Role Status Linda Quintanilla MD Primary Care Provider Active Start: February 17, 2024 End: February 16monroe Xiong II, MDAttending ProviderActiveStart: February 17, 2024 End: February 17, 2024 Team Status: Inactive Member Role Status Linda Quintanilla MD Primary Care Provide r, Attending Provider Active Start: March 02, 2024 End: March 02, 2024 Team Status: Active Member Role Status Linda Quintanilla MD Primary Care Provider Active Start: November 28, 2023 Adele Bertrand ProviderActiveStart: November 28, 2023 Team Status: Inactive Member Role Status Linda Quintanilla MD Primary Care Provider Active Imlindsey Avalos , MDAttending ProviderActive Team Status: Inactive Member Role Status Linda Quintanilla MD Primary Care Provide r, Attending Provider Active Start: April 03, 2024 End: April 03, 2024 Team Status: Inactive Member Role Status Linda Quintanilla MD Primary Care Provide r, Attending Provider Active Start: June 28, 2024 End: June 28, 2024 Team Status: Inactive Member Role Status Linda Quintanilla MD Primary Care Provide r, Attending Provider Active Start: August 30, 2024 End: August 30, 2024 Team Status: Active Member Role Status Linda Quintanilla MD Primary Care Provide r, Attending Provider Active Start: September 05, 2024 Team Status: Inactive Member Role Status Linda Quintanilla MD Primary Care Provide r, Attending Provider Active Start: November 12, 2024 End: November 12, 2024 Team Status: Inactive Member Role Status Linda Quintanilla MD Primary Care Provide r, Attending Provider Active Start: January 18, 2025 End: January 18, 2025 Team Status: Inactive Member Role Status Linda Quintanilla MD Primary Care Provide r, Attending Provider Active Start: February 12, 2025 End: February 12, 2025 Team Status: Inactive Member Role Status Dates Kareen Quintanilla MD Primary Care Provider Active Start: February 12, 2025 End: February 12, 2025Autumn Ceballos ProviderActiveStart: February 12, 2025 End: February 12, 2025 Team Status: Inactive Member Role Status Dates Kareen Quintanilla MD Primary Care Provider Active Start: May 09, 2025 End: May 09, 2025Autumn Ceballos ProviderActiveStart: May 09, 2025 End: May 09, 2025 Team Status: Active Member Role Status Dates Kareen Quintanilla MD Primary Care Provider Active Start: June 27, 2025 Shey KATIE SappAttvinnie ProviderActiveStart: June 27, 2025 Team Status: Inactive Member Role Status Dates Kareen Quintanilla MD Primary Care Provider Active Start: July 03, 2025 End: July 03, 2025Autumn Ceballos ProviderActiveStart: July 03, 2025 End: July 03, 2025 INFORMATION SOURCE (unrecogn ized section and content) DATE CREATED AUTHOR 11/19/2022 [facility] DATE CREATED AUTHOR AUTHOR'S ORGANIZ ATION 01/22/2024 [facility] DATE CREATED AUTHOR AUTHOR'S ORGANIZ ATION 02/16/2024 [facility] DATE CREATED AUTHOR AUTHOR'S ORGANIZ ATION 07/09/2025 [facility] REASON FOR VISIT (unrecogniz ed section and [...] BE BASED ON THE PRIMARY CLINICAL RECORDS. [facility] [employer] [facility]. provides no warranty or guarantee of the accuracy or completeness of information in this document.
--- NOTE | 2025-07-11 11:31 | PM.CN ---
Consult Note: HPI Data of Consult Patient: known to practice within the last 3 years Consult date: 07/11/25 Requesting Physician: Yolanda Stephens NP Primary Care Provider: Kareen Castellanos MD Consult Narrative Reason for consult: neck and LUE pain Narrative: Chayito Subramanian a pleasant 54 year old female presents for evaluation of neck pain, hx of C5-6 fusion [place] [address] Chung at [facility]. Has noted neck pain >15 years. chronically on tramadol, motrin, lorzapem, celebrex with mild relief. She is working with her PCP to wean off of tramadol. xray imaging of cervical spine and thoracic spine consistent with degenerative changes. Pain today 6+/10 burning pressure aching in neck and left shoulder/upper back. Pain increasing with pushing, pulling, standing, walking, activity, and sleep. Pain mildly improved with heat/ice, and sitting. continues to report numbness tingling and weakness to left arm. recently underwent cervical MRI with results below. Patient was evaluated by Dr Vikram SAENZ who recommended updating an EMG and did not recommend surgical intervention at this time, they recommended pt consider spinal cord stimulation however she is against this. patient frustrated as she is interested in surgical intervention. cc:: CC: Yolanda Stephens NP Review of Systems ROS Musculoskeletal Reports: neck pain and extremity pain Meds Home Medications and Allergies Home Medications ?Medication ?Instructions ?Recorded ?Confirmed ?Type celecoxib 200 mg capsule (Celebrex) 200 mg PO DAILY 02/20/25 02/20/25 History lorazepam 0.5 mg tablet 0.5 mg PO TID PRN anxiety 02/20/25 02/20/25 History tramadol 50 mg tablet 50 mg PO TID PRN pain 02/20/25 02/20/25 History gabapentin 100 mg capsule 100 mg PO TID #90 caps 04/03/25 Rx Allergies Allergy/AdvReac Type Severity Reaction Status Date / Time Penicillins Allergy Mild Hives Verified 02/20/25 10:06 Exam Constitutional Documenting provider has reviewed patient's vital signs: yes Common normals: no apparent distress, oriented x3, healthy appearing, alert and well nourished General appearance: cooperative HENMT Common normals: normocephalic, hearing grossly normal bilaterally and moist oral mucous membranes Head and scalp: normocephalic Eye Common normals: PERRL Pupil: PERRL Neck & C-Spine General: normal visual inspection Cervical spine: cervical ROM abnormal, pain with cervical ROM, cervical spine tenderness, paracervical muscle tenderness left>right and trapezius muscle tenderness bilateral Other: positive spurlings strength 3.5/5 in RUE and 5/5 in LUE Chest Common normals: inspection of chest normal Respiratory Common normals: normal respiratory effort, no retractions and no use of accessory muscles Neuro Common normals: oriented x3 Sensorium/orientation: alert Psych Common normals: mental status grossly normal, thought process normal, cooperative, affect normal, speech normal and activity/motor behavior normal Speech: normal speech Thought process: normal thought process Results Additional Findings Additional findings: If on a controlled substance or opioids, I have checked an [place]AR[place] report on this patient and there are no aberrancies noted in the prescribing history.??If on a controlled substance or opioid a drug screen was completed and reviewed within the last year, and if there has not been a drug screen completed we ordered one today to monitor higher risk, state monitored pain medication use. As part of providing excellent, safe, comprehensive care, the following was completed at our patient's visit: 1. A medication reconciliation and review to ensure accurate knowledge of current/active medications, including asking our patients to inform us about any [id number] medications or herbal remedies/nutritional supplements/alternative remedies. 2. A review to specifically ensure our patients have had annual screening for screening for depression, screening for tobacco use, and screening for unhealthy alcohol use. For concerning screenings had a discussion with the patient, provided patient education, and recommended follow-up with primary care provider when appropriate. If patient noted with a risk of falling, they received education on strength, gait, and balance training to prevent future risk of falling. Portions of this note may have been carried over from the previous visit and updated as appropriate. Please note this office utilizes paper charting in addition to the electronic medical record. A list of current medications, vitals, and PMH is available there as the clinical staff outside of myself do not have access to [employer] charting during the clinic day operations. As part of providing quality comprehensive care the current medications, vitals, and PMH were reviewed in the paper chart. Assessment and Plan Assessment and Plan (1) Cervical radiculopathy: Assessment and Plan: The patient has had over 3 months of moderate to severe neck, upper back, and LUE pain with functional impairment and inadequate response to conservative care including NSAIDS (unless there are contraindication such as concurrent blood thinners), multiple oral or topical pain medications, and home exercise program/physical therapy.? The Oswestry Disability Index was completed, and the patient scored a 58%.? (2) Cervical spinal stenosis: (3) Failed neck syndrome: (4) Cervical spondylosis: (5) Myofascial pain: Plan continue f/u with NS as planned, pending EMG pt declining cervical TFESIS, defer cervical/thoracic MBBs at this time as patient has radicular symptoms pt interested in retrialing PT due to worsening weakness, will refer at this time f/u based on NS recommendations
== END 2025-07-11 11:10 | disposition home or self-care (01) ==
LOC: PM 11:10
PROVIDERS: PCP Family Medicine; Visit Provider Nurse Practitioner
DX: M54.12 Radiculopathy, cervical region (principal); M48.02 Spinal stenosis, cervical region; M96.1 Postlaminectomy syndrome, not elsewhere classified; M47.812 Spondylosis without myelopathy or radiculopathy, cervical region; M79.18 Myalgia, other site
CPT/HCPCS: G0463